=== PATIENT | female | born 1960 | race Caucasian/White ===

== ENCOUNTER 2020-04-13 07:55 | Inpatient (IN) ==
--- NOTE | 2020-03-21 16:23 | PAT Medication Instructions ---
Medication Instructions Date of Service March 21, 2020 Home Medications aspirin [Aspir-81] 81 mg PO PM atorvastatin 80 mg PO HS bupropion HCl [Wellbutrin SR] 200 mg PO BID clonazepam 1 mg PO BID escitalopram oxalate 10 mg PO QAM loratadine 10 mg PO QAM losartan 50 mg PO QAM metformin 1,000 mg PO BID omeprazole 40 mg PO PM vitamin R64-klryd acid 1 tab PO QAM DO NOT take the morning of surgery loratadine 10 mg PO QAM losartan 50 mg PO QAM metformin 1,000 mg PO BID vitamin H61-knszk acid 1 tab PO QAM Take morning of surgery With a small sip of water, OTHERWISE NOTHING TO EAT OR DRINK AFTER MIDNIGHT: bupropion HCl [Wellbutrin SR] 200 mg PO BID clonazepam 1 mg PO BID escitalopram oxalate 10 mg PO QAM Take evening before surgery aspirin [Aspir-81] 81 mg PO PM atorvastatin 80 mg PO HS bupropion HCl [Wellbutrin SR] 200 mg PO BID clonazepam 1 mg PO BID metformin 1,000 mg PO BID omeprazole 40 mg PO PM Other Notes If you have any questions please call us at [phone] or [phone] or [phone] or [phone]
--- NOTE | 2020-03-22 13:00 | Anesthesiology Consultation ---
Date of Service March 22, 2020 Assessment & Plan (1) Encounter for pre-operative examination: Chart Review Chart Review: Acceptable Risk for Surgery (pending preop Covid testing ) and Patient seen in Pre Admission Testing - Check BSG AM DOS Per PAT appt 03/22/20, no recent travel. Resides in [facility]. Educated patient to follow up with surgeon's office regarding Covid testing. Educated on importance of self quarantining, social distancing and wearing mask in public both for the patient and household contacts. Teaching & Discussion Pre-Anesthesia Teaching/Discussion Notes: Instructed NPO after midnight before surgery,except medications with 15 cc of water. Medication instructions provid ed according to the PAT guidelines. History Surgery Operation Date: 04/13/20 10:55 Proposed Procedures p L4-L5 Decompression Fusion, Spinal Cord Monitoring - Zion Calle, Height/Weight Height: 5 ft 2 in Weight: 67.7 kg Allergies Allergy/AdvReac Type Severity Reaction Status Date / Time cortisone Allergy Unknown INFLAMED Unverified 03/16/20 09:49 MUSCLES NEAR SITE OF INJECTION meloxicam Allergy Unknown Unknown Verified 03/16/20 09:49 Medications Home Medications Medication Instructions Recorded Confirmed Last Taken aspirin [Aspir-81] 81 mg PO PM 03/16/20 03/16/20 Unknown atorvastatin 80 mg PO HS 03/16/20 03/16/20 Unknown bupropion HCl [Wellbutrin SR] 200 mg PO BID 03/16/20 03/16/20 Unknown clonazepam 1 mg PO BID 03/16/20 03/16/20 Unknown escitalopram oxalate 10 mg PO QAM 03/16/20 03/16/20 Unknown loratadine 10 mg PO QAM 03/16/20 03/16/20 Unknown losartan 50 mg PO QAM 03/16/20 03/16/20 Unknown metformin 1,000 mg PO BID 03/16/20 03/16/20 Unknown omeprazole 40 mg PO PM 03/16/20 03/16/20 Unknown vitamin A43-mrfgr acid 1 tab PO QAM 03/16/20 03/16/20 Unknown Past Medical History Medical History (Updated 03/22/20 @ 13:23 by Mony Andrews PA-C) Anxiety Depression Diabetes mellitus, type 2 Well controlled and stable GERD (gastroesophageal reflux disease) Well controlled and stable with meds Hearing deficit Wears hearing aids Hiatal hernia Hyperlipidemia Hypertension Kidney disease resolved since off meloxicam Nausea and vomiting after administration of anesthetic agent Osteoarthritis Sleep apnea Does not have CPAP at this time Exercise / Class Metabolic Activity II 4-5 Yardwork/Stairs/Walk up hill (one flight of stairs- no chest pain or SOB ) Past Family History Family History (Updated 03/16/20 @ 10:06 by Celena Perez RN) Sister Diabetes Brother Diabetes Past Surgical History Surgical History (Updated 03/16/20 @ 10:05 by Celena Perez RN) History of arthroscopy right History of cardiac cath over 5 yrs ago> [place]> due to c.p> no stents History of carpal tunnel release right History of cholecystectomy History of colonoscopy History of dilatation and curettage History of esophagogastroduodenoscopy (EGD) History of hysterectomy History of repair of rotator cuff bilat History of tooth extraction all teeth Hx of Achilles tendon repair left x2 Hx of decompression of ulnar nerve right Past Anesthesia History No Hx of Anesthesia Complications and No Family Hx of Anesthesia Complications History of PONV History of PONV (scop patch ordered for DOS ) and Hx of Motion Sickness Social History Smoking Status: Current every day smoker tobacco type: cigarettes Smoking cigarettes per day: 1/2 ppd Do You Dip or Chew Tobacco: No Hx Alcohol Use: No Hx Substance Use: No substance use type: does not use Review of Systems Patient denies chest pain, shortness of breath, dyspnea on exertion, cough, wheezing, palpitations. No hx of seizures, stroke, [place]. No hx of blood clots or blood transfusions Physical Exam Vital Signs VITALS BP 167/74 P 68 TEMP 98.5 SP02 99% RESP 16 Constitutional no acute distress ENMT Mouth: no TMJ clicking Thyromental Distance: > or= 3.5 Finger Breadths (3.5) Mallampati Class: III Missing all teeth Neck + limited neck extension (significant ) Respiratory normal respiratory effort; no respiratory distress Auscultation: lungs clear to auscultation bilaterally; no wheezes Cardiovascular Rate/Rhythm: regular rate and regular rhythm Heart Sounds: no murmur Vessels: no carotid bruit Musculoskeletal Spine: + pain with cervical ROM Neurologic moves all extremities Psychiatric Orientation: alert Testing Laboratory Results 03/22/20 13:20 03/22/20 13:35 PT 10.9 Seconds (9.0-12.0) 03/22/20 13:20 INR 1.0 (0.9-1.1) 03/22/20 13:20 APTT 27.5 Seconds (21.0-31.0) 03/22/20 13:20 Hemoglobin A1c 6.1 % (4.5-5.6) H 03/22/20 13:20 Urine Color Yellow 03/22/20 13:20 Urine Appearance Clear (Clear) 03/22/20 13:20 Urine pH 5.5 (4.5-7.5) 03/22/20 13:20 Ur Specific [place] 1.011 (1.000-1.030) 03/22/20 13:20 Urine Protein Negative (Negative) 03/22/20 13:20 Urine Glucose (UA) Negative (Negative) 03/22/20 13:20 Urine Ketones Negative (Negative) 03/22/20 13:20 Urine Nitrite Negative (Negative) 03/22/20 13:20 Ur Leukocyte Esterase Negative (Negative) 03/22/20 13:20 Blood Type O Positive 03/22/20 13:20 Antibody Screen NEGATIVE 03/22/20 13:20 Electrocardiogram Date: 03/22/20 Findings: + NSR @ (67) Minimal voltage criteria for LVH, may be normal variant. Nonspecific T wave abnormality. Chest X-Ray Date: 03/22/20 Findings: + NAD Cardiac Catheterization Date: 07/13/14 Findings: + normal Coronary arteries angiographically normal.
--- NOTE | 2020-03-22 14:05 | XRay Report ---
XR chest Pre-admission PA/Lat CLINICAL HISTORY: PAT preoperative evaluation COMPARISON STUDY: No previous studies for comparison. FINDINGS: The bones soft tissues and hemidiaphragms are normal. The cardiomediastinal silhouette is n ormal. The lungs are clear. The pulmonary vasculature is normal. IMPRESSION: Negative chest. ACT 112: Negative or not required by law. The above report was generated using voice recognition software. It may contain grammatical, syntax or spelling errors. Electronically signed by: Fito Orozco M.D. 03/22/2020 2:04 PM
[2020-03-22 14:13] LABS: Basophils # (auto) 0.01 K/uL (0-0.2); Basophils % (auto) 0.2 %; Eosinophils # (auto) 0.08 K/uL (0-0.5); Eosinophils % (auto) 1.4 %; Hematocrit (blood only) 36.1 % (37-47); Hemoglobin 11.9 g/dL (12.0-16.0); Immature Granulocytes # (auto) 0.02 K/uL (0.00-0.02); Immature Granulocytes % (auto) 0.4 %; Lymphocytes # (auto) 1.92 K/uL (1.2-3.4); Lymphocytes % (auto) 34.3 %; Mean Corpuscular Hemoglobin 29.4 pg (25-34); Mean Corpuscular Volume 89.1 fL (80-100); Mean Platelet Volume 10.1 fL (7.4-10.4); Monocytes # (auto) 0.45 K/uL (0.11-0.59); Neutrophils # (auto) 3.12 K/uL (1.4-6.5); Neutrophils % (auto) 55.7 %; Platelet Count 274 K/uL (130-400); RDW Coefficient of Variation 14.6 % (11.5-14.5); RDW Standard Deviation 47.8 fL (36.4-46.3); Red Blood Count 4.05 M/uL (4.2-5.4)
[2020-03-22 14:21] LABS: Estimated Average Glucose 128 mg/dl; Hemoglobin A1C 6.1 % (4.5-5.6)
[2020-03-22 14:24] LABS: BUN Creatinine Ratio 11.7 (10-20); Calcium 9.2 mg/dl (8.5-10.1); Est GFR (African American) 64.6; Est GFR (Non-African American) 55.8; Potassium 4.3 mmol/L (3.5-5.1)
[2020-03-22 14:26] LABS: Partial Thromboplastin Time 27.5 Seconds (21.0-31.0); Prothrombin Time 10.9 Seconds (9.0-12.0)
[2020-03-22 14:29] LABS: Appearance Urine Clear (Clear); Bilirubin Urine Negative (Negative); Blood Urine Negative (Negative); Color Urine Yellow; Glucose Urine UA Negative (Negative); Ketones Urine Negative (Negative); Leukocyte Esterase Urine Negative (Negative); Nitrite Urine Negative (Negative); Protein Urine Negative (Negative); Specific Gravity Urine 1.011 (1.000-1.030); Urobilinogen Urine Negative (Negative); pH Urine 5.5 (4.5-7.5)
--- NOTE | 2020-03-23 05:04 | Electrocardiogram Report ---
Test Reason : Blood Pressure : / mmHG Vent. Rate : 067 BPM Atrial Rate : 067 BPM P-R Int : 158 ms QRS Dur : 088 ms QT Int : 404 ms P-R-T Axes : 072 -25 -08 degrees QTc Int : 426 ms Normal sinus rhythm Minimal voltage criteria for LVH, may be normal variant Nonspecific T wave abnormality Abnormal ECG When compared with ECG of 13-DEC-2015 15:25, Nonspecific T wave abnormality, worse in Anterolateral leads Confirmed by Soctt Zhou ([id number]) on 03/23/2020 5:04:00 AM Referred By: Zion Calle Confirmed By:Scott Zhou
[~2020-04-13 07:55] MED LIST: ACETAMINOPHEN 500 MG TAB PO SCH; CEFAZOLIN 1000MG 1,000 MG/7.5 ML SYR IV SCH; CeleBREX 200 MG CAP PO SCH; GABAPENTIN 600 MG DOSE PO SCH; LACTATED RINGER'S 1,000 ML IV SCH; SCOPOLAMINE 1.5 MG TDSY TD SCH; [UNRECOGNIZED DRUG - REMARK] SCH
[2020-04-13] MEDS ORDERED: SCOPOLAMINE 1.5 MG TDSY TD ONE (09:05)
--- NOTE | 2020-04-13 09:21 | History & Physical Bridge Note ---
Date of Service April 13, 2020 History & Physical Bridge Note I have examined the patient, reviewed the History & Physical and in the interval since the performance of the History & Physical I have noted the following changes of clinical significance: no changes noted
--- NOTE | 2020-04-13 09:22 | History & Physical Report ---
Date of Service April 13, 2020 Assessment & Plan (1) Neurogenic claudication due to lumbar spinal stenosis: L4-L5 decompression fusion Present on Admission?: Yes History of Present Illness Chief Complaint: Back and bilateral leg pain Primary Care Provider: SUSAN Garibay This is a 59-year-old female who presents with chronic persistent back and leg pain. After failing extensive course of nonoperative care is here for surgical intervention. Allergies Allergy/AdvReac Type Severity Reaction Status Date / Time cortisone Allergy Severe INFLAMED Verified 04/13/20 08:31 MUSCLES NEAR SITE OF INJECTION meloxicam AdvReac Intermediate Unknown Verified 04/13/20 08:31 NSAIDS (Non-Steroidal AdvReac Intermediate Verified 04/13/20 08:32 Anti-Inflamma Home Medications Home Medications Medication Instructions Recorded Confirmed Type aspirin [Aspir-81] 81 mg PO PM 03/16/20 04/13/20 History atorvastatin 80 mg PO HS 03/16/20 04/13/20 History bupropion HCl [Wellbutrin SR] 200 mg PO BID 03/16/20 04/13/20 History clonazepam [Klonopin] 1 mg PO BID 03/16/20 04/13/20 History escitalopram oxalate [Lexapro] 15 mg PO QAM 03/16/20 04/13/20 History losartan 50 mg PO QAM 03/16/20 04/13/20 History metformin 1,000 mg PO BID 03/16/20 04/13/20 History omeprazole 40 mg PO PM 03/16/20 04/13/20 History vitamin R40-zixwm acid 1 tab PO QAM 03/16/20 04/13/20 History Past Med/Surg History Medical History (Updated 04/13/20 @ 09:22 by Zion Calle DO) Anxiety Depression Diabetes mellitus, type 2 Well controlled and stable GERD (gastroesophageal reflux disease) Well controlled and stable with meds Hearing deficit Wears hearing aids Hiatal hernia Hyperlipidemia Hypertension Kidney disease resolved since off meloxicam Osteoarthritis Sleep apnea Does not have CPAP at this time Surgical History (Updated 04/10/20 @ 12:53 by Catalina Plata RN) History of arthroscopy right History of cardiac cath over 5 yrs ago> [place]> due to c.p> no stents History of carpal tunnel release right History of cholecystectomy History of colonoscopy History of dilatation and curettage History of esophagogastroduodenoscopy (EGD) History of hysterectomy History of repair of rotator cuff bilat History of tooth extraction all teeth Hx of Achilles tendon repair left x2 Hx of decompression of ulnar nerve right Nausea and vomiting after administration of anesthetic agent Family History (Updated 03/16/20 @ 10:06 by Celena Perez RN) Sister Diabetes Brother Diabetes Social History Smoking Status: Current every day smoker Cigarettes Per Day: 1/2 ppd; Second Hand Exposure: Yes; Do You Dip or Chew Tobacco: No; Tobacco Cessation Education Requested by Patient: No Hx Alcohol Use: No Hx Substance Use: No Preferred Language: Welsh Communication Ability: Effective 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 Heart regular rate and rhythm. Lungs clear to auscultation. Results & Data Vital Signs (Past 12 Hours) Vital Signs Temp Pulse Resp BP Pulse Ox 04/13/20 08:43 36.6 C 78 18 125/72 97
[2020-04-13] MEDS ORDERED: ePHEDrine sulfate 50 MG/ML AMP IV PRN (09:29)
[2020-04-13] MEDS ORDERED: ATROPINE SULFATE 0.1 MG/ML 10ML SYR IV PRN (09:29)
[2020-04-13] MEDS ORDERED: ONDANSETRON INJ 2 MG/ML 2 ML VIAL IV PRN ×2 (09:29→14:26)
[2020-04-13] MEDS ORDERED: HYDROmorphone INJ 1 MG/ML SYRINGE IV PRN (09:29)
[2020-04-13] MEDS ORDERED: ROCURONIUM BROMIDE 10 MG/ML 5 ML VIAL IV ONE ×3 (09:30→12:05)
[2020-04-13] MEDS ORDERED: PROPOFOL IV EMULSION 10 MG/ML 20 ML VIAL IV ONE (09:30)
[2020-04-13] MEDS ORDERED: LIDOCAINE HCL 2% 2 ML VIAL/AMP(20MG/ML) INFIL ONE (09:30)
[2020-04-13] MEDS ORDERED: NEOSTIGMINE METHYLSULFATE 1 MG/ML 10ML VIAL ONE (09:30)
[2020-04-13] MEDS ORDERED: GLYCOPYRROLATE 0.2 MG/ML VIAL ONE (09:30)
[2020-04-13] MEDS ORDERED: BUPIVACAINE 0.5 % 5 MG/1 ML MPF 30ML VIAL ONE (09:31)
[2020-04-13] MEDS ORDERED: fentaNYL citrate 100 MCG/2 ML VIAL ONE (09:31)
[2020-04-13] MEDS ORDERED: BACITRACIN INJ 50,000 UNIT VIAL ONE (09:31)
[2020-04-13] MEDS ORDERED: EPINEPHrine INJ 1 MG/ML AMP ONE (09:31)
[2020-04-13] MEDS ORDERED: MIDAZOLAM HCL 1 MG/ML 2ML VIAL ONE (09:31)
[2020-04-13] MEDS ORDERED: FLOSEAL HEMOSTATIC MATRIX 10ML TOP ONE (10:35)
--- NOTE | 2020-04-13 11:55 | Procedure Note ---
Procedure Note Date of Service April 13, 2020 Prior to going to the operating room, the patient reported that she had lost her left contact. The patient rubbed her eye multiple times and stated that it did not feel like the contact was still in her eye. On visual inspection, I was unable to find any contact in her left eye. After induction, the anesthesia team looked under the patients upper left eyelid and was able to identify the contact rolled up and wedged between the patient's eyeball and eyelid. Attempts to flush the eye with normal saline were not successful in freeing up the contact. Therefore, I gently removed the contact using a sterile cotton swab. The cotton swab was only used to touch the contact and not the surface of the eye. The contact was gently moved to the corner of the patients eye and then the edge of the contact was grabbed with a forcep and removed. The patient's eye was then flushed with saline and gently taped shut. The contact was disposed off per patient's request. Deya Jaimes MD, PhD Anesthesiologist Coding
--- NOTE | 2020-04-13 11:59 | Operative Report ---
Post Operative Report Pre & Post Diagnosis Operation Date: 04/13/20 09:35 Pre-Op Diagnosis: Spinal Stenosis, Lumbar Region L4-L5 Spondylolisthesis L4-L5 Post-Op Diagnosis: Same I identified the patient and participated in the time-out.: Yes Procedure Operation Date: 04/13/20 09:35 Actual Procedures #1 lumbar decompression with bilateral medial facetectomies and foraminotomies L3-4 and L4-5 per #2 posterior spinal fusion L4-5 #3 placed posterior instrumentation L4-5 per #4 placement infuse collagen sponge, master graft in the posterior lateral gutters. #5 locally harvested morselized autograft in the posterior lateral gutters. Surgeon Zion Calle, Environment Artist Janes Pacheco Estimated Blood Loss 100 Findings Consistent with Post-Op Diagnosis Specimens None Indications This is a 5-year-old female that presents with above-mentioned diagnosis after failing course of nonoperative care is here for the above-mentioned procedure. Description of Procedure Patient was met with identified informed consent obtained. Patient was then taken to the operative suite underwent an patient placed in a prone position the Arnaldo table on top of the Giorgio frame. All bony prominences were well-padded eyes inspected to ensure no external pressure placed upon them. This point the lumbar spine was prepped and draped in normal sterile fashion. Sharp dissection with the assistance of Bovie cautery was performed down to and exposing the lamina and transverse processes of L3-4 and L5. From a caudal cephalad fashion complete laminectomy of L4 partial laminectomy of L3 was performed including bilateral medial facetectomies and foraminotomies addressing severe spinal sten osis. Pedicle screws were then placed in L4 and L5 bilaterally with assistance of fluoroscopy and appropriate size francis locked in position. Transverse processes of L4 and L5 were then burred to subcortical bleeding bone. Infuse collagen sponge master graft local autograft was then placed in the posterior gutters. 15 round GINA drain inserted. The incision was then closed with 1 Vicryl in the fascia 2-0 Vicryl subcutaneously and 4 Monocryl for final skin closure. Steri-Strip sterile dressings placed. Patient waken taken to PACU stable condition. Please note spinal cord monitoring was utilized that the procedure no changes noted. Janes Pacheco was present at the entire procedure involved the patient positioning complex portions of the surgery and final skin closure. I attest to the content of the Intraoperative Record and any orders documented therein. Any exceptions are noted below.
--- NOTE | 2020-04-13 12:26 | Fluoroscopy Report ---
FL lumbar spine 2-3V CLINICAL HISTORY: L4-5 DECOMPRESSION/FUSION/INTERBODY COMPARISON STUDY: FLUOROSCOPY TIME: 22 seconds NUMBER OF FLUOROSCOPIC IMAGES: 2 FINDINGS: Image intensifier support for an L4-L5 decompression and fusion IMPRESSION: Image intensifier support for an L4-L5 decompression and fusion. ACT 112: Negative or not required by law. The above report was generated using voice recognition software. It may contain grammatical, syntax or spelling errors. Electronically signed by: Fito Orozco M.D. 04/13/2020 12:25 PM
[2020-04-13] MEDS: fentaNYL citrate 100 MCG/2 ML VIAL IV PRN ×2 (12:30→12:35)
--- NOTE | 2020-04-13 14:13 | Anesthesiology Progress Note ---
Date of Service April 13, 2020 Anesthesia Post Procedure Vital Signs Vital Signs: Temp Pulse Pulse Resp BP Pulse Ox 04/13/20 13:45 71 13 114/60 94 04/13/20 13:30 66 12 97/60 L 92 04/13/20 13:15 64 19 100/58 L 92 04/13/20 13:05 36.7 C 66 14 103/57 L 92 04/13/20 12:55 67 12 103/57 L 93 04/13/20 12:45 65 12 105/55 L 100 04/13/20 12:35 66 16 121/65 100 04/13/20 12:25 59 L 12 103/67 100 04/13/20 12:18 36.2 C L 60 18 111/59 L 100 04/13/20 08:43 36.6 C 78 18 125/72 97 Pain Intensity Lower Back: Pain Intensity: 4 Transfer of Care Handoff Completed per policy Notes Mental Status: alert / awake / arousable and participated in evaluation Patient Amnestic to Procedure: Yes Nausea / Vomiting: adequately controlled Pain: adequately controlled Airway Patency, RR, SpO2: stable & adequate BP & HR: stable & adequate Hydration State: stable & adequate Anesthetic Complications: no major complications apparent and Pt Satisfied with anesthetic care Notes: In PACU, patient denying any eye pain, but is reporting some blurred vision in left eye. On inspection, patient's eye appears dry with a slight film. Patient's eye was gently flushed with normal saline. The patient reports that her blurry vision fully resolved. Eye looks clear without any film, irritation or redness.
[2020-04-13] MEDS ORDERED: METOCLOPRAMIDE HCL INJ 5 MG/ML 2 ML VIAL IV PRN (14:26)
[2020-04-13] MEDS ORDERED: ACETAMINOPHEN 1,000 MG/100 ML VIAL IV PRN (14:26)
[2020-04-13] MEDS ORDERED: LORazepam 0.5 MG/1 ML VIAL IV PRN (14:26)
[2020-04-13] MEDS ORDERED: HYDROmorphone INJ 0.5 MG/0.5 ML SYR IV PRN (14:26)
[2020-04-13] MEDS ORDERED: MAGNESIUM HYDROXIDE SUSP 30 ML UDC PO PRN (14:26)
[2020-04-13] MEDS ORDERED: LORazepam 0.5 MG TAB PO PRN (14:26)
[2020-04-13] MEDS ORDERED: ONDANSETRON 4 MG OD TAB PO PRN (14:26)
[2020-04-13] MEDS ORDERED: PROMETHAZINE HCL 12.5 MG in SODIUM CHLORIDE 0.9% 50 ML IV PRN (14:26)
[2020-04-13] MEDS ORDERED: bisacodyL 10 MG SUPP PR PRN (14:26)
[2020-04-13] MEDS ORDERED: FAMOTIDINE 20 MG TAB PO PRN (14:26)
[2020-04-13] MEDS ORDERED: SOD PHOSPHATE/SOD BIPHOSPHATE ENEMA 132 ML BTL PR PRN (14:26)
[2020-04-13] MEDS ORDERED: ALUMINUM/MAGNESIUM SUSP 30 ML UDC PO PRN (14:26)
[2020-04-13] MEDS ORDERED: DO NOT ADMINISTER PNEUMOCOCCAL VACCINE PRN (14:26)
[2020-04-13] MEDS ORDERED: DO NOT ADMINISTER FLU VACCINE PRN (14:26)
[2020-04-13] MEDS ORDERED: NALOXONE HCL 0.4 MG/1 ML VIAL/CARP IV PRN (14:26)
[2020-04-13] MEDS ORDERED: PHARMACY GLYCEMIC MGMT CONSULT SCH (14:39)
--- NOTE | 2020-04-13 14:48 | Pharmacy Report ---
Pharmacy Glycemic Short Note 2 - Date of Service April 13, 2020 - Glycemic Short BSG Results (Last 24 hours): 04/13/20 04/13/20 08:16 12:18 POC Glucose 173 H 111 H OUTPATIENT ANTIDIABETIC REGIMEN: * Metformin 1gm PO BID * A1c = 6.1% 03/22/20 ASSESSMENT: * Type 2 diabetic, well controlled using metformin monotherapy prior to admission. * Admitted today for lumbar spinal decompression/fusion * No dexamethasone dispensed from quique-op [facility] * BSGs < 180 thus far * Will hold metformin post-op until renal fxn assessed and tolerating diet. Will initiate Novolog SQ prandial and correctional insulin based upon weight and "moderate" stress level. * Basal insulin will only be provided this evening if BSG > 180 PLAN FOR INPATIENT GLYCEMIC CONTROL: * Hold outpatient oral diabetes medications * Basal insulin * Lantus 10 units x 1 IF HS BSG 180 OR GREATER, otherwise no basal insulin * Bolus insulin * NovoLog per scale ACHS or Q6hrs while NPO * Goal Range: Low 110 mg/dL - High 140 mg/dL * Correction Factor: 30 mg/dL/unit * Nutritional / Prandial insulin per carb ratio of 1 unit per 10 grams CHO consumed PLAN FOR DISCHARGE: * may resume outpt metformin therapy on discharge if no contraindications present
[2020-04-13] MEDS: OXYCODONE HCL IR 5 MG TAB (IMMEDIATE RELEASE) PO PRN ×2 (15:11→20:41)
[2020-04-13] MEDS ORDERED: SODIUM CHLORIDE 0.9% 1000ML 1,000 ML IV SCH (15:15)
[2020-04-13] MEDS ORDERED: NICOTINE 21 MG/24 HR TDSY TD PRN (15:18)
--- NOTE | 2020-04-13 15:18 | Hospitalist Consultation ---
Date of Consultation April 13, 2020 Assessment & Plan (1) Neurogenic claudication due to lumbar spinal stenosis: - POD#0 L4-L5 decompression and fusion by Dr. Calle - activity and wound care orders as per ortho - pain control with bowel regimen - PT/OT - monitor H/H for acute blood loss anemia and transfuse blood products PRN - EBL 100 cc (2) Diabetes mellitus, type 2: -Hgb A1c 6.1 03/2020 -Hold metformin and utilize Lantus and NovoLog per protocol while hospitalized -Glycemic pharmacy consulted by spine Ortho (3) Hypertension: -BP controlled, continue losartan (4) Depression: (5) Anxiety: -Nursing reports that behavioral health liaison is consulted per protocol -Continue home medications (6) DVT prophylaxis: -Teds/SCDs as per spine Ortho Thank you for this consultation. We will follow the patient with you during their hospital stay. You can reach a member of the [facility] Hospitalist Team 06/04 via pager @ [phone]. Supervising Physician Co-Signing Physician Notes Pt seen and examined by me, care coordinated with SUSAN morris, please refer to her note above for further details. 59-year-old female with PMH DM type II (A1c 6.1%), HLD, HTN, OA, depression, back and leg pain, due to lumbar stenosis, now status post L4-L5 decompression and fusion today by Dr. Calle. Postoperatively, the patient is doing generally well. She denies numbness and tingling to lower extremities. No chest pain or shortness of breath. Reports some mild dizziness when rolling in bed, no lightheadedness or syncopal event. Denies abdominal pain or nausea. She has not voided since surgery. Patient is lying in bed, in no acute distress. She is alert and oriented and answers questions appropriately. Lung sounds clear to auscultation, no wheezing, rhonchi or crackles. Heart sounds regular. Abdomen soft, nontender, nondistended, positive bowel sounds. She is moving all 4 extremities spontaneously and without difficulty. Skin is warm, dry, well perfused. Of note, patient reports that her daughter in the hospital several days ago. Psychiatry liaison was contacted and discussed with the patient. Patient also has a therapist as outpatient. Close follow-up on her depression recommended. Monitor vital signs, and monitor for acute blood loss anemia. Diabetes seems to be well controlled, with A1c 6%. Kings Myles MD History of Present Illness Reason for Consultation: Postop medical management Requesting Physician: Dr. Calle Attending Physician: Dr. Myles History of Present Illness 59-year-old female with PMH DM type II, HLD, HTN, depression, and other problems listed below who is status post L4-L5 decompression and fusion today by Dr. Calle. Postoperatively, the patient is doing generally well, however she does report her current pain is 10/10. RN is in the process of obtaining pain medication pharmacy. She denies numbness and tingling to lower extremities. No chest pain or shortness of breath. Reports some mild dizziness when rolling in bed, no lightheadedness or syncopal event. Denies abdominal pain or nausea. She has not voided since surgery. Allergies Allergy/AdvReac Type Severity Reaction Status Date / Time cortisone Allergy Severe INFLAMED Verified 04/13/20 08:31 MUSCLES NEAR SITE OF INJECTION meloxicam AdvReac Intermediate Unknown Verified 04/13/20 08:31 NSAIDS (Non-Steroidal AdvReac Intermediate Verified 04/13/20 08:32 Anti-Inflamma Home Medications Home Medications Medication Instructions Recorded Confirmed Type aspirin [Aspir-81] 81 mg PO PM 03/16/20 04/13/20 History atorvastatin 80 mg PO HS 03/16/20 04/13/20 History bupropion HCl [Wellbutrin SR] 200 mg PO BID 03/16/20 04/13/20 History clonazepam [Klonopin] 1 mg PO BID 03/16/20 04/13/20 History escitalopram oxalate [Lexapro] 15 mg PO QAM 03/16/20 04/13/20 History losartan 50 mg PO QAM 03/16/20 04/13/20 History metformin 1,000 mg PO BID 03/16/20 04/13/20 History omeprazole 40 mg PO PM 03/16/20 04/13/20 History vitamin [id number] acid 1 tab PO QAM 03/16/20 04/13/20 History estradiol 1 mg PO DAILY 04/13/20 04/13/20 History Patient History Medical History Anxiety Depression Diabetes mellitus, type 2 Well controlled and stable GERD (gastroesophageal reflux disease) Well controlled and stable with meds Hearing deficit Wears hearing aids Hiatal hernia Hyperlipidemia Hypertension Kidney disease resolved since off meloxicam Osteoarthritis Sleep apnea Does not have CPAP at this time Surgical History History of arthroscopy right History of cardiac cath over 5 yrs ago> dansean> due to c.p> no stents History of carpal tunnel release right History of cholecystectomy History of colonoscopy History of dilatation and curettage History of esophagogastroduodenoscopy (EGD) History of hysterectomy History of repair of rotator cuff bilat History of tooth extraction all teeth Hx of Achilles tendon repair left x2 Hx of decompression of ulnar nerve right Nausea and vomiting after administration of anesthetic agent Family History Sister Diabetes Brother Diabetes Social History Smoking Status: Current every day smoker Cigarettes Per Day: 1 PPD; Second Hand Exposure: Yes; Do You Dip or Chew Tobacco: No; Tobacco Cessation Education Requested by Patient: No Hx Alcohol Use: No Hx Substance Use: No Preferred Language: Gabonese Communication Ability: Effective Beam Racker Required: No Beliefs That Will Affect Care: None Current Living Situation: Family Other Information That Helps Us Care for You: No Feels Safe at Home: Yes Safety Concerns: Feels Safe At This Time Review of Systems Review of Systems: ROS per HPI, all other systems reviewed and negative Physical Exam Constitutional: WD/WN, vitals as above Eyes: PERRL, conjunctivae normal, anicteric sclerae ENMT: Ears: no external ear abnormality Nose: no external nose abnormality Mouth: + edentulous Respiratory: normal respiratory effort, lungs clear to auscultation Cardiovascular: Rate/Rhythm: regular rate and regular rhythm Vessels: normal peripheral pulses Extremities: no edema Gastrointestinal (Abdomen): normal bowel sounds, soft, nontender, no hepatosplenomegaly Musculoskeletal: no cyanosis or clubbing, extremities motor strength 5/5 S/p back surgery, drain in place draining bloody drainage, pedal pushes and pull strong bilaterally Skin: no rashes, warm and dry Neurologic: PERRL, EOMI, accommodation nl, no face palsy, no dysarthria Psychiatric: A+Ox3, euthymic affect Results & Data Results & Data ([facility]) Vital Signs (Past 12 Hours) Vital Signs Temp Pulse Pulse Pulse Resp BP Pulse Ox 04/13/20 14:49 36.7 C 58 L 18 111/68 95 04/13/20 14:26 36.7 C 75 20 115/70 95 04/13/20 13:45 71 13 114/60 94 04/13/20 13:30 66 12 97/60 L 92 04/13/20 13:15 64 19 100/58 L 92 04/13/20 13:05 36.7 C 66 14 103/57 L 92 04/13/20 12:55 67 12 103/57 L 93 04/13/20 12:45 65 12 105/55 L 100 04/13/20 12:35 66 16 121/65 100 04/13/20 12:25 59 L 12 103/67 100 04/13/20 12:18 36.2 C L 60 18 111/59 L 100 04/13/20 08:43 36.6 C 78 18 125/72 97
[2020-04-13] MEDS: CHECK SCOPOLAMINE PATCH PLACEMENT SCH ×3 (15:48→17:11)
[2020-04-13] MEDS: HYDROmorphone INJ 1 MG/ML SYRINGE IV PRN (15:56)
[2020-04-13] MEDS: INSULIN ASPART 100 UNITS/ML 3 ML PEN SC SCH ×2 (18:10→20:46)
[2020-04-13] MEDS: CEFAZOLIN 1000MG 1,000 MG/7.5 ML SYR IV SCH (18:13)
[2020-04-13] MEDS: clonazePAM 1 MG TAB PO SCH (20:44)
[2020-04-13] MEDS ORDERED: LANTUS PER UNIT CHARGE SQ ONE (21:00)
[2020-04-13] MEDS: DOCUSATE SODIUM/SENNA 50/8.6MG TAB PO SCH (21:58)
[2020-04-13] MEDS: BuPROPion SR 100 MG TABCR PO SCH (21:59)
[2020-04-13] MEDS: ATORVASTATIN 40 MG TAB PO SCH (21:59)
[2020-04-13] MEDS: ASPIRIN 81 MG ECTAB PO SCH (21:59)
[2020-04-13] MEDS: PANTOprazole 40 MG TAB PO SCH (21:59)
[2020-04-13] MEDS: TRAMADOL HCL 50 MG TABLET PO PRN (23:09)
[2020-04-14] MEDS: CEFAZOLIN 1000MG 1,000 MG/7.5 ML SYR IV SCH (01:42)
[2020-04-14] MEDS: OXYCODONE HCL IR 5 MG TAB (IMMEDIATE RELEASE) PO PRN ×5 (02:59→20:33)
[2020-04-14] MEDS: POLYETHYLENE (MIRALAX) 17 GM PACK PO SCH ×3 (05:43→17:05)
[2020-04-14] MEDS: TRAMADOL HCL 50 MG TABLET PO PRN (05:44)
[2020-04-14 06:04] LABS: Eosinophils # (auto) 0.07 K/uL (0-0.5); Eosinophils % (auto) 0.9 %; Hematocrit (blood only) 32.6 % (37-47); Hemoglobin 10.8 g/dL (12.0-16.0); Immature Granulocytes # (auto) 0.02 K/uL (0.00-0.02); Immature Granulocytes % (auto) 0.2 %; Lymphocytes # (auto) 1.54 K/uL (1.2-3.4); Mean Corpuscular Hemoglobin 28.9 pg (25-34); Mean Corpuscular Hgb Conc 33.1 g/dL (32-36); Mean Corpuscular Volume 87.2 fL (80-100); Mean Platelet Volume 9.6 fL (7.4-10.4); Monocytes # (auto) 0.78 K/uL (0.11-0.59); Monocytes % (auto) 9.6 %; Neutrophils % (auto) 70.3 %; Platelet Count 230 K/uL (130-400); RDW Coefficient of Variation 13.9 % (11.5-14.5); RDW Standard Deviation 44.4 fL (36.4-46.3); Red Blood Count 3.74 M/uL (4.2-5.4); White Blood Count 8.11 K/uL (4.8-10.8)
[2020-04-14 06:37] LABS: BUN Creatinine Ratio 9.8 (10-20); Calcium 8.6 mg/dl (8.5-10.1); Creatinine Clr Calc Pharmacy 43.6 ml/min; Est GFR (African American) 58.1; Est GFR (Non-African American) 50.1; Potassium 4.1 mmol/L (3.5-5.1)
[2020-04-14] MEDS: clonazePAM 1 MG TAB PO SCH ×2 (07:59→20:40)
[2020-04-14] MEDS: ESCITALOPRAM OXALATE 10 MG TAB PO SCH (07:59)
[2020-04-14] MEDS: VITAMIN B COMPLEX TAB PO SCH (08:00)
[2020-04-14] MEDS: BuPROPion SR 100 MG TABCR PO SCH ×2 (08:00→20:37)
--- NOTE | 2020-04-14 08:06 | Orthopedic Progress Note ---
Date of Service April 14, 2020 Assessment & Plan (1) Neurogenic claudication due to lumbar spinal stenosis: Patient is doing well postop day 1. We will continue with GI DVT prophylaxis and mobilization with physical therapy. We will make sure her pain is well controlled and encourage hydration. Anticipate she will be here until Thursday. Admission and Anticipated Discharge Date Admission Date: April 13, 2020 Subjective Patient is seen bedside in room 307 postoperative day 1 status post lumbar decompression fusion at L4-5. She is having some soreness in the back itself and some neck pain as well. She is complaining of some intermittent symptoms in the legs as well. Otherwise her pain is controlled. She is tolerating p.o. without difficulties. She denies any other numbness, tingling, or paresthesias. Physical Exam Physical Exam: On exam she is alert and oriented. Her dressing is clean dry and intact. GINA drains in place and is holding suction with 80 cc out on the last check. Her strength and sensation grossly intact gait was not observed. Results & Data ([facility]) Vital Signs (Past 12 Hours) Vital Signs Temp Pulse Resp BP Pulse Ox 04/14/20 07:10 36.7 C 94 H 16 94/64 L 95 04/14/20 06:59 37.4 C 93 H 16 117/71 94 04/14/20 02:55 37.0 C 79 16 118/77 97 04/13/20 22:50 36.4 C L 75 18 108/68 95
[2020-04-14] MEDS: INSULIN ASPART 100 UNITS/ML 3 ML PEN SC SCH ×4 (08:37→20:38)
[2020-04-14] MEDS ORDERED: LOSARTAN POTASSIUM 50 MG TAB PO SCH (09:00)
[2020-04-14] MEDS: METFORMIN HCL 500 MG TAB PO SCH (17:06)
[2020-04-14] MEDS: HYDROmorphone INJ 1 MG/ML SYRINGE IV PRN (17:10)
--- NOTE | 2020-04-14 20:22 | Hospitalist Progress Note ---
Date of Service April 14, 2020 Assessment & Plan (1) Neurogenic claudication due to lumbar spinal stenosis: - POD#2 L4-L5 decompression and fusion by Dr. Calle Management of postoperative fever and anemia per below (2) Postoperative abdominal pain with fever: T-max 38.7 No leukocytosis Chest x-ray no pneumonia Urinalysis no UTI Blood cultures: Pending, follow-up Afebrile since last night Continue incentive spirometry We will not recommend starting antibiotics at this point unless fever recurs Continue to monitor (3) Anemia: Possible acute blood loss anemia Monitor hemoglobin Transfuse if hemoglobin below 7 or symptomatic (4) Diabetes mellitus, type 2: -Hgb A1c 6.1 03/2020 -Hold metformin and utilize Lantus and NovoLog per protocol while hospitalized -Glycemic pharmacy consulted by spine Ortho (5) Hypertension: Blood pressure still on the lower side, hold losartan (6) Depression: (7) Anxiety: -Nursing reports that behavioral health liaison is consulted per protocol -Continue home medications (8) DVT prophylaxis: -Teds/SCDs as per spine Ortho Thank you for this consultation. We will follow the patient with you during their hospital stay. You can reach a member of the [facility] Hospitalist Team 06/04 via pager @ [phone]. Admission and Anticipated Discharge Date Admission Date: April 13, 2020 Subjective Follow-up for status post back surgery, hypertension, low-grade fever Patient had fever episode overnight, T-max 38.7 Seen resting in bed, comfortable, watching TV States she feels better today compared to yesterday, back pain improving Denies headache, dizziness, chest pain, shortness of breath, cough, sputum, sputum production, abdominal pain, nausea vomiting, diarrhea, problems with urination Tolerated PT well today, denies dizziness or weakness No other symptoms Review of Systems Review of Systems: All systems reviewed & are unremarkable except as noted in HPI & below Physical Exam Physical Exam: General- oriented x 3, not in distress, speaks in sentences with no effort or accessory muscle use Eyes- anicteric Neck- no JVD Lungs- clear breath sounds bilaterally, no crackles, no wheezing bilaterally Heart- normal rate, regular rhythm; no murmurs Abdomen- normal bowel sounds, nondistended, soft, nontender Extremities- no pretibial edema, no calf tenderness Neuro- alert, oriented x 3; no gross focal neurologic deficits Skin- warm & dry Results & Data Results & Data ([facility]) Vital Signs (Past 12 Hours) Vital Signs Temp Pulse Resp BP Pulse Ox 04/14/20 15:35 36.7 C 94 H 16 123/70 95 04/14/20 11:19 36.9 C 82 16 112/66 97 Laboratory Results Laboratory Results - last 24 hr 04/14/20 04/15/20 04/15/20 20:37 06:36 09:52 WBC 9.22 RBC 3.46 L Hgb 10.1 L Hct 30.0 L MCV 86.7 MCH 29.2 MCHC 33.7 RDW Std Deviation 44.1 RDW Coeff of [place] 13.9 Plt Count 171 MPV 9.7 Immature Gran % (Auto) 0.2 Neut % (Auto) 76.1 Lymph % (Auto) 13.2 [place] % (Auto) 10.0 Eos % (Auto) 0.4 Baso % (Auto) 0.1 Neut # (Auto) 7.01 H Lymph # (Auto) 1.22 [place] # (Auto) 0.92 H Eos # (Auto) 0.04 Baso # (Auto) 0.01 Immature Gran # (Auto) 0.02 Sodium Potassium Chloride Carbon Dioxide Anion Gap BUN Creatinine Est Cr Clr Drug Dosing Est GFR ( Amer) Est GFR (Non-Af Amer) BUN/Creatinine Ratio Glucose POC Glucose 152 H 155 H Calcium Urine Color Urine Appearance Urine pH Ur Specific [place] Urine Protein Urine Glucose (UA) Urine Ketones Urine Blood Urine Nitrite Urine Bilirubin Urine Urobilinogen Ur Leukocyte Esterase 04/15/20 04/15/20 04/15/20 09:52 12:06 16:12 WBC RBC Hgb Hct MCV MCH MCHC RDW Std Deviation RDW Coeff of [place] Plt Count MPV Immature Gran % (Auto) Neut % (Auto) Lymph % (Auto) [place] % (Auto) Eos % (Auto) Baso % (Auto) Neut # (Auto) Lymph # (Auto) [place] # (Auto) Eos # (Auto) Baso # (Auto) Immature Gran # (Auto) Sodium 134 L Potassium 4.0 Chloride 101 Carbon Dioxide 27 Anion Gap 6.0 BUN 16 Creatinine 1.05 Est Cr Clr Drug Dosing 49.0 Est GFR ( Amer) 66.9 Est GFR (Non-Af Amer) 57.7 BUN/Creatinine Ratio 15.0 Glucose 181 H POC Glucose 129 H Calcium 8.9 Urine Color Yellow Urine Appearance Clear Urine pH 5.5 Ur Specific [place] 1.011 Urine Protein Negative Urine Glucose (UA) Trace H Urine Ketones Negative Urine Blood Negative Urine Nitrite Negative Urine Bilirubin Negative Urine Urobilinogen Negative Ur Leukocyte Esterase Negative 04/15/20 17:12 WBC RBC Hgb Hct MCV MCH MCHC RDW Std Deviation RDW Coeff of [place] Plt Count MPV Immature Gran % (Auto) Neut % (Auto) Lymph % (Auto) [place] % (Auto) Eos % (Auto) Baso % (Auto) Neut # (Auto) Lymph # (Auto) [place] # (Auto) Eos # (Auto) Baso # (Auto) Immature Gran # (Auto) Sodium Potassium Chloride Carbon Dioxide Anion Gap BUN Creatinine Est Cr Clr Drug Dosing Est GFR ( Amer) Est GFR (Non-Af Amer) BUN/Creatinine Ratio Glucose POC Glucose 145 H Calcium Urine Color Urine Appearance Urine pH Ur Specific [place] Urine Protein Urine Glucose (UA) Urine Ketones Urine Blood Urine Nitrite Urine Bilirubin Urine Urobilinogen Ur Leukocyte Esterase
[2020-04-14] MEDS: PANTOprazole 40 MG TAB PO SCH (20:36)
[2020-04-14] MEDS: ASPIRIN 81 MG ECTAB PO SCH (20:36)
[2020-04-14] MEDS: ATORVASTATIN 40 MG TAB PO SCH (20:37)
[2020-04-14] MEDS: DOCUSATE SODIUM/SENNA 50/8.6MG TAB PO SCH (20:37)
[2020-04-15] MEDS: ACETAMINOPHEN 500 MG TAB PO PRN (00:08)
[2020-04-15] MEDS: POLYETHYLENE (MIRALAX) 17 GM PACK PO SCH ×4 (00:08→17:27)
[2020-04-15] MEDS: TRAMADOL HCL 50 MG TABLET PO PRN (00:11)
[2020-04-15] MEDS: OXYCODONE HCL IR 5 MG TAB (IMMEDIATE RELEASE) PO PRN ×4 (06:39→20:31)
[2020-04-15] MEDS: VITAMIN B COMPLEX TAB PO SCH (07:13)
[2020-04-15] MEDS: clonazePAM 1 MG TAB PO SCH ×2 (07:13→21:44)
[2020-04-15] MEDS: BuPROPion SR 100 MG TABCR PO SCH ×2 (07:13→21:44)
[2020-04-15] MEDS: ESCITALOPRAM OXALATE 10 MG TAB PO SCH (07:14)
[2020-04-15] MEDS: METFORMIN HCL 500 MG TAB PO SCH ×2 (07:14→17:35)
[2020-04-15] MEDS: INSULIN ASPART 100 UNITS/ML 3 ML PEN SC SCH ×4 (07:15→21:47)
--- NOTE | 2020-04-15 07:27 | Orthopedic Progress Note ---
Date of Service April 15, 2020 Assessment & Plan (1) Neurogenic claudication due to lumbar spinal stenosis: Patient is doing well postoperative day #2. I encouraged her to ambulate today. We will continue with pain control GI and DVT prophylaxis. If all goes well she will likely be discharged home tomorrow. Admission and Anticipated Discharge Date Admission Date: April 13, 2020 Subjective Patient was seen bedside postoperative day 2 in room 307. She is resting comfortably at this point. She states that she has some soreness in her back but nothing going down the legs. She was up and walks yesterday and did pretty well. She has had no increase in pain. She has no radicular complaints at this point. She denies any other numbness, tingling, or paresthesias. Physical Exam Physical Exam: On exam she is alert and oriented. Her lower extremity motor exam reveals no focal atrophy strength and sensation are both intact her dressing is clean dry and intact. Her GINA is in place and had 20 cc of drainage on the last recording. Her calves are supple nontender her abdomen soft and nontender. Results & Data ([facility]) Vital Signs (Past 12 Hours) Vital Signs Temp Pulse Resp BP Pulse Ox 04/15/20 06:36 37.0 C 82 16 104/66 96 04/15/20 01:11 38.2 C H 04/14/20 23:10 38.7 C H 103 H 16 114/68 91
[2020-04-15 10:14] LABS: Basophils # (auto) 0.01 K/uL (0-0.2); Basophils % (auto) 0.1 %; Eosinophils # (auto) 0.04 K/uL (0-0.5); Eosinophils % (auto) 0.4 %; Hemoglobin 10.1 g/dL (12.0-16.0); Immature Granulocytes # (auto) 0.02 K/uL (0.00-0.02); Immature Granulocytes % (auto) 0.2 %; Lymphocytes # (auto) 1.22 K/uL (1.2-3.4); Lymphocytes % (auto) 13.2 %; Mean Corpuscular Hemoglobin 29.2 pg (25-34); Mean Corpuscular Hgb Conc 33.7 g/dL (32-36); Mean Corpuscular Volume 86.7 fL (80-100); Mean Platelet Volume 9.7 fL (7.4-10.4); Monocytes # (auto) 0.92 K/uL (0.11-0.59); Neutrophils # (auto) 7.01 K/uL (1.4-6.5); Neutrophils % (auto) 76.1 %; Platelet Count 171 K/uL (130-400); RDW Coefficient of Variation 13.9 % (11.5-14.5); RDW Standard Deviation 44.1 fL (36.4-46.3); Red Blood Count 3.46 M/uL (4.2-5.4); White Blood Count 9.22 K/uL (4.8-10.8)
[2020-04-15 10:40] LABS: Calcium 8.9 mg/dl (8.5-10.1); Est GFR (African American) 66.9; Est GFR (Non-African American) 57.7
--- NOTE | 2020-04-15 10:43 | XRay Report ---
XR chest 1V portable CLINICAL HISTORY: Suspected pneumonia COMPARISON STUDY: 03/22/2020 FINDINGS: The cardiac and mediastinal contours are normal. There is no evidence of focal pulmonary co nsolidation. There is no evidence of failure. No pleural effusions are visualized.[ IMPRESSION: No active disease in the chest. ACT 112: Negative or not required by law. Electronically signed by: Agapito Diaz M.D. 04/15/2020 10:42 AM
--- NOTE | 2020-04-15 12:20 | Pharmacy Report ---
Pharmacy Glycemic Short Note 2 - Date of Service April 15, 2020 - Glycemic Short BSG Results (Last 24 hours): 04/14/20 04/14/20 04/15/20 17:09 20:37 06:36 Glucose POC Glucose 113 H 152 H 155 H 04/15/20 04/15/20 09:52 12:06 Glucose 181 H POC Glucose 129 H OUTPATIENT ANTIDIABETIC REGIMEN: * Metformin 1gm PO BID * A1c = 6.1% 03/22/20 ASSESSMENT: * Type 2 diabetic, well controlled using metformin monotherapy prior to admission. * POD #2 s/p lumbar spinal decompression/fusion * Pt received 11 units of bolus insulin yesterday with BSGs ranging from 113 - 152 mg/dL * Metformin has been resumed in light of stable renal function and pt tolerating oral intake * Fasting BSG acceptable without basal insulin PLAN FOR INPATIENT GLYCEMIC CONTROL: * Metformin 1000 mg PO BID with meals * Basal insulin * none * Bolus insulin * NovoLog per scale ACHS or Q6hrs while NPO * Goal Range: Low 110 mg/dL - High 140 mg/dL * Correction Factor: 25 mg/dL/unit * remove carb coverage PLAN FOR DISCHARGE: * may resume outpt metformin therapy on discharge
[2020-04-15 16:23] LABS: Appearance Urine Clear (Clear); Bilirubin Urine Negative (Negative); Blood Urine Negative (Negative); Color Urine Yellow; Glucose Urine UA Trace (Negative); Ketones Urine Negative (Negative); Leukocyte Esterase Urine Negative (Negative); Nitrite Urine Negative (Negative); Protein Urine Negative (Negative); Specific Gravity Urine 1.011 (1.000-1.030); Urobilinogen Urine Negative (Negative); pH Urine 5.5 (4.5-7.5)
--- NOTE | 2020-04-15 18:17 | Hospitalist Progress Note ---
Date of Service Delayed entry Date of service April 14, 2020 April 15, 2020 Assessment & Plan (1) Neurogenic claudication due to lumbar spinal stenosis: - POD# 1 L4-L5 decompression and fusion by Dr. Calle Blood pressure marginal, hold losartan Monitor hemoglobin DVT prophylaxis per Ortho service (2) Diabetes mellitus, type 2: -Hgb A1c 6.1 03/2020 -Hold metformin and utilize Lantus and NovoLog per protocol while hospitalized -Glycemic pharmacy consulted by spine Ortho (3) Hypertension: Blood pressure on the lower side, hold losartan (4) Depression: (5) Anxiety: -Nursing reports that behavioral health liaison is consulted per protocol -Continue home medications (6) DVT prophylaxis: -Teds/SCDs as per spine Ortho Thank you for this consultation. We will follow the patient with you during their hospital stay. You [facility] via pager @ [phone]. Admission and Anticipated Discharge Date Admission Date: April 13, 2020 Subjective Follow-up for status post back surgery Seen resting in bed, comfortable, not in distress Awake, alert but appears tired States she is having back pain today No headache, nausea vomiting, chest pain, shortness of breath, dizziness, abdominal pain No other symptoms Review of Systems Review of Systems: All systems reviewed & are unremarkable except as noted in HPI & below Physical Exam Physical Exam: General- oriented x 3, not in distress, speaks in sentences with no effort or accessory muscle use Head- atraumatic Eyes- PERRL, EOMI, anicteric ENT- oropharynx clear Neck- supple, no JVD, no adenopathy, no thyromegaly; carotids +2/2, no bruits appreciated Lungs- clear to auscultation bilaterally, no rales/wheezes Heart- normal rate, regular rhythm; no murmur, no gallop, no rub appreciated Abdomen- normal bowel sounds, nondistended, soft, nontender, no masses or hepatosplenomegaly Extremities- no pretibial edema, no calf tenderness; peripheral pulses intact Back-patient declined exam secondary to pain with movement Neuro- alert, oriented x 3; CN 2-12 grossly intact; motor 5/5 bilaterally;sensation 100% on all extremities; no other gross focal neurologic deficits Skin- warm & dry Results & Data Results & Data ([facility]) Vital Signs (Past 12 Hours) Vital Signs Temp Pulse Resp BP Pulse Ox 04/15/20 15:00 37.4 C 88 16 111/69 94 04/15/20 06:36 37.0 C 82 16 104/66 96 Laboratory Results Noted and reviewed
[2020-04-15] MEDS: DOCUSATE SODIUM/SENNA 50/8.6MG TAB PO SCH (21:43)
[2020-04-15] MEDS: ATORVASTATIN 40 MG TAB PO SCH (21:44)
[2020-04-15] MEDS: ASPIRIN 81 MG ECTAB PO SCH (21:44)
[2020-04-15] MEDS: PANTOprazole 40 MG TAB PO SCH (21:45)
[2020-04-16] MEDS: ACETAMINOPHEN 500 MG TAB PO PRN (00:45)
[2020-04-16] MEDS: POLYETHYLENE (MIRALAX) 17 GM PACK PO SCH ×4 (00:45→17:26)
[2020-04-16 05:44] LABS: Eosinophils # (auto) 0.13 K/uL (0-0.5); Eosinophils % (auto) 1.5 %; Hematocrit (blood only) 29.3 % (37-47); Hemoglobin 9.9 g/dL (12.0-16.0); Immature Granulocytes # (auto) 0.02 K/uL (0.00-0.02); Immature Granulocytes % (auto) 0.2 %; Lymphocytes % (auto) 23.1 %; Mean Corpuscular Hemoglobin 29.3 pg (25-34); Mean Corpuscular Hgb Conc 33.8 g/dL (32-36); Mean Corpuscular Volume 86.7 fL (80-100); Mean Platelet Volume 9.6 fL (7.4-10.4); Monocytes # (auto) 1.08 K/uL (0.11-0.59); Monocytes % (auto) 12.5 %; Neutrophils # (auto) 5.44 K/uL (1.4-6.5); Neutrophils % (auto) 62.7 %; Platelet Count 197 K/uL (130-400); RDW Standard Deviation 44.7 fL (36.4-46.3); Red Blood Count 3.38 M/uL (4.2-5.4); White Blood Count 8.67 K/uL (4.8-10.8)
[2020-04-16] MEDS: OXYCODONE HCL IR 5 MG TAB (IMMEDIATE RELEASE) PO PRN ×2 (06:03→16:36)
[2020-04-16 06:10] LABS: BUN Creatinine Ratio 12.6 (10-20); Calcium 9.1 mg/dl (8.5-10.1); Creatinine Clr Calc Pharmacy 51.9 ml/min; Est GFR (African American) 71.8; Est GFR (Non-African American) 61.9; Potassium 4.6 mmol/L (3.5-5.1)
[2020-04-16] MEDS: METFORMIN HCL 500 MG TAB PO SCH ×2 (07:31→17:25)
[2020-04-16] MEDS: ESCITALOPRAM OXALATE 10 MG TAB PO SCH (07:32)
[2020-04-16] MEDS: BuPROPion SR 100 MG TABCR PO SCH ×2 (07:33→21:25)
[2020-04-16] MEDS: VITAMIN B COMPLEX TAB PO SCH (07:33)
[2020-04-16] MEDS: clonazePAM 1 MG TAB PO SCH ×2 (07:37→21:24)
[2020-04-16] MEDS: INSULIN ASPART 100 UNITS/ML 3 ML PEN SC SCH ×4 (07:39→21:25)
--- NOTE | 2020-04-16 11:19 | Orthopedic Progress Note ---
Date of Service April 16, 2020 Assessment & Plan (1) Neurogenic claudication due to lumbar spinal stenosis: At this time we will advance her bowel regiment discontinue her drain today and continue with therapy as tolerated. Hopefully discharge home tomorrow. Present on Admission?: Yes Admission and Anticipated Discharge Date Admission Date: April 13, 2020 Subjective Patient's back pain is controlled leg pain markedly improved. No bowel movement as of yet. Positive flatus. Physical Exam Physical Exam: Patient is good strength testing was comfortable. Results & Data ([facility]) Vital Signs (Past 12 Hours) Vital Signs Temp Pulse Resp BP Pulse Ox 04/16/20 06:37 36.9 C 77 16 118/71 94
[2020-04-16] MEDS ORDERED: DEXAMETHASONE SOD PHOSPHATE 8 MG in SYRINGE 0 ML IV ONE (11:30)
[2020-04-16] MEDS ORDERED: bisacodyL 10 MG SUPP PR STA (14:08)
--- NOTE | 2020-04-16 14:11 | Hospitalist Progress Note ---
Date of Service April 16, 2020 Assessment & Plan (1) Neurogenic claudication due to lumbar spinal stenosis: (1) Neurogenic claudication due to lumbar spinal stenosis: - POD#3 L4-L5 decompression and fusion by Dr. Calle Management of postoperative fever and anemia per below (2) Postoperative abdominal pain with fever: T-max 38.1 No leukocytosis Chest x-ray no pneumonia Urinalysis no UTI Blood cultures: Pending, follow-up Had low-grade fever this morning of 38.1 No clear focus of infection at this time Continue incentive spirometry Constipation contributing? Add Dulcolax suppository, continue MiraLAX, continue Senokot-S hold off on antibiotics for now Continue to monitor (3) Anemia: Possible acute blood loss anemia Monitor hemoglobin Transfuse if hemoglobin below 7 or symptomatic Check anemia panel (4) Diabetes mellitus, type 2: -Hgb A1c 6.1 03/2020 -Hold metformin and utilize Lantus and NovoLog per protocol while hospitalized -Glycemic pharmacy consulted by spine Ortho (5) Hypertension: Blood pressure still on the lower side, hold losartan (6) Depression: (7) Anxiety: -Nursing reports that behavioral health liaison is consulted per protocol - Patient states she is grieving her daughter's demise recently but patient d enies being tearful, not motivated, feeling down most of the time -Continue home medications (8) DVT prophylaxis: -Teds/SCDs as per spine Ortho Thank you for this consultation. We will follow the patient with you during their hospital stay. You can reach a member of the [facility] Hospitalist Team 06/04 via pager @ [phone]. (2) Diabetes mellitus, type 2: -Hgb A1c 6.1 03/2020 -Hold metformin and utilize Lantus and NovoLog per protocol while hospitalized -Glycemic pharmacy consulted by spine Ortho (3) Hypertension: Blood pressure on the lower side, hold losartan (4) Depression: (5) Anxiety: -Nursing reports that behavioral health liaison is consulted per protocol -Continue home medications (6) DVT prophylaxis: -Teds/SCDs as per spine Ortho Thank you for this consultation. We will follow the patient with you during their hospital stay. You can reach a member of the [facility] Hospitalist Team 06/04 via pager @ [phone]. Admission and Anticipated Discharge Date Admission Date: April 13, 2020 Subjective Follow-up for status post back surgery, fever Seen resting in bed, comfortable, not in distress Somewhat weak but awake alert oriented x3 Had fever of 38.1 this morning Reports intermittent chills Denies headache, dizziness, sore throat, nasal drainage, sore throat, chest pain, shortness of breath, cough, abdominal pain, problems with urination Positive constipation since , no abdominal pain, no nausea vomiting Denies other symptoms Review of Systems Review of Systems: All systems reviewed & are unremarkable except as noted in HPI & below Physical Exam Physical Exam: General- oriented x 3, not in distress, speaks in sentences with no effort or accessory muscle use Eyes- anicteric Neck- no JVD Lungs- clear breath sounds, no crackles, no wheezing bilaterally Heart- normal rate, regular rhythm; no murmurs Abdomen- normal bowel sounds, nondistended, soft, nontender Back-dressing in place, drain in place with sanguinous output No discharge Extremities- no pretibial edema, no calf tenderness Neuro- alert, oriented x 3; no gross focal neurologic deficits Skin- warm & dry Results & Data Results & Data ([facility]) Vital Signs (Past 12 Hours) Vital Signs Temp Pulse Resp BP Pulse Ox 04/16/20 06:37 36.9 C 77 16 118/71 94 Laboratory Results Laboratory Results - last 24 hr 04/15/20 04/15/20 04/15/20 16:12 17:12 20:50 WBC RBC Hgb Hct MCV MCH MCHC RDW Std Deviation RDW Coeff of [place] Plt Count MPV Immature Gran % (Auto) Neut % (Auto) Lymph % (Auto) Clare % (Auto) Eos % (Auto) Baso % (Auto) Neut # (Auto) Lymph # (Auto) Clare # (Auto) Eos # (Auto) Baso # (Auto) Immature Gran # (Auto) Sodium Potassium Chloride Carbon Dioxide Anion Gap BUN Creatinine Est Cr Clr Drug Dosing Est GFR ( Amer) Est GFR (Non-Af Amer) BUN/Creatinine Ratio Glucose POC Glucose 145 H 160 H Calcium Urine Color Yellow Urine Appearance Clear Urine pH 5.5 Ur Specific [place] 1.011 Urine Protein Negative Urine Glucose (UA) Trace H Urine Ketones Negative Urine Blood Negative Urine Nitrite Negative Urine Bilirubin Negative Urine Urobilinogen Negative Ur Leukocyte Esterase Negative 04/16/20 04/16/20 04/16/20 05:29 05:29 06:40 WBC 8.67 RBC 3.38 L Hgb 9.9 L Hct 29.3 L MCV 86.7 MCH 29.3 MCHC 33.8 RDW Std Deviation 44.7 RDW Coeff of [place] 14.0 Plt Count 197 MPV 9.6 Immature Gran % (Auto) 0.2 Neut % (Auto) 62.7 Lymph % (Auto) 23.1 Clare % (Auto) 12.5 Eos % (Auto) 1.5 Baso % (Auto) 0.0 Neut # (Auto) 5.44 Lymph # (Auto) 2.00 Clare # (Auto) 1.08 H Eos # (Auto) 0.13 Baso # (Auto) 0.00 Immature Gran # (Auto) 0.02 Sodium 139 Potassium 4.6 Chloride 105 Carbon Dioxide 30 Anion Gap 4.0 BUN 12 Creatinine 0.99 Est Cr Clr Drug Dosing 51.9 Est GFR ( Amer) 71.8 Est GFR (Non-Af Amer) 61.9 BUN/Creatinine Ratio 12.6 Glucose 118 H POC Glucose 126 H Calcium 9.1 Urine Color Urine Appearance Urine pH Ur Specific [place] Urine Protein Urine Glucose (UA) Urine Ketones Urine Blood Urine Nitrite Urine Bilirubin Urine Urobilinogen Ur Leukocyte Esterase 04/16/20 12:12 WBC RBC Hgb Hct MCV MCH MCHC RDW Std Deviation RDW Coeff of [place] Plt Count MPV Immature Gran % (Auto) Neut % (Auto) Lymph % (Auto) Clare % (Auto) Eos % (Auto) Baso % (Auto) Neut # (Auto) Lymph # (Auto) Clare # (Auto) Eos # (Auto) Baso # (Auto) Immature Gran # (Auto) Sodium Potassium Chloride Carbon Dioxide Anion Gap BUN Creatinine Est Cr Clr Drug Dosing Est GFR ( Amer) Est GFR (Non-Af Amer) BUN/Creatinine Ratio Glucose POC Glucose 144 H Calcium Urine Color Urine Appearance Urine pH Ur Specific [place] Urine Protein Urine Glucose (UA) Urine Ketones Urine Blood Urine Nitrite Urine Bilirubin Urine Urobilinogen Ur Leukocyte Esterase
[2020-04-16] MEDS ORDERED: Nursing to Pharmacy Communication SCH (20:00)
[2020-04-16] MEDS: PANTOprazole 40 MG TAB PO SCH (21:24)
[2020-04-16] MEDS: DOCUSATE SODIUM/SENNA 50/8.6MG TAB PO SCH (21:24)
[2020-04-16] MEDS: ATORVASTATIN 40 MG TAB PO SCH (21:24)
[2020-04-16] MEDS: ASPIRIN 81 MG ECTAB PO SCH (21:24)
[2020-04-17] MEDS: ACETAMINOPHEN 500 MG TAB PO PRN (01:07)
[2020-04-17 06:37] LABS: Basophils # (auto) 0.01 K/uL (0-0.2); Basophils % (auto) 0.1 %; Eosinophils # (auto) 0.06 K/uL (0-0.5); Eosinophils % (auto) 0.7 %; Hematocrit (blood only) 29.5 % (37-47); Hemoglobin 9.9 g/dL (12.0-16.0); Immature Granulocytes # (auto) 0.01 K/uL (0.00-0.02); Immature Granulocytes % (auto) 0.1 %; Lymphocytes # (auto) 1.71 K/uL (1.2-3.4); Mean Corpuscular Hemoglobin 28.9 pg (25-34); Mean Corpuscular Hgb Conc 33.6 g/dL (32-36); Mean Corpuscular Volume 86.3 fL (80-100); Mean Platelet Volume 9.1 fL (7.4-10.4); Monocytes % (auto) 12.3 %; Neutrophils # (auto) 5.37 K/uL (1.4-6.5); Neutrophils % (auto) 65.8 %; Platelet Count 229 K/uL (130-400); RDW Coefficient of Variation 13.9 % (11.5-14.5); RDW Standard Deviation 43.9 fL (36.4-46.3); Red Blood Count 3.42 M/uL (4.2-5.4); White Blood Count 8.16 K/uL (4.8-10.8)
[2020-04-17 06:50] VITALS: BP 110/66; PULSE 69; TEMP 99; O2SAT 97
[2020-04-17 07:13] LABS: BUN Creatinine Ratio 12.2 (10-20); Calcium 9.4 mg/dl (8.5-10.1); Creatinine Clr Calc Pharmacy 50.9 ml/min; Est GFR (African American) 70.1; Est GFR (Non-African American) 60.5; Potassium 4.4 mmol/L (3.5-5.1)
[2020-04-17] MEDS: METFORMIN HCL 500 MG TAB PO SCH (08:06)
[2020-04-17] MEDS: ESCITALOPRAM OXALATE 10 MG TAB PO SCH (08:07)
[2020-04-17] MEDS: VITAMIN B COMPLEX TAB PO SCH (08:07)
[2020-04-17] MEDS: BuPROPion SR 100 MG TABCR PO SCH (08:08)
[2020-04-17] MEDS: INSULIN ASPART 100 UNITS/ML 3 ML PEN SC SCH (08:12)
[2020-04-17] MEDS: clonazePAM 1 MG TAB PO SCH (08:12)
--- NOTE | 2020-04-17 08:26 | Discharge Summary ---
Date of Service April 17, 2020 Admission HPI Per Admitting Provider This is a 59-year-old female who presents with chronic persistent back and leg pain. After failing extensive course of nonoperative care is here for surgical intervention. Principal Diagnosis Lumbar spinal stenosis with neurogenic claudication Discharge Data Allergies Allergy/AdvReac Type Severity Reaction Status Date / Time cortisone Allergy Severe INFLAMED Verified 04/13/20 08:31 MUSCLES NEAR SITE OF INJECTION meloxicam AdvReac Intermediate Unknown Verified 04/13/20 08:31 NSAIDS (Non-Steroidal AdvReac Intermediate Verified 04/13/20 08:32 Anti-Inflamma Consultations 04/13/20 14:26 Consult Case Management - Discharge Planning Routine Consult Hospitalist Routine 04/13/20 14:34 Consult Behavioral Health Liaison Routine Procedures Performed Operation Date: 04/13/20 09:35 Actual Procedures p L4-L5 Decompression Fusion, Spinal Cord Monitoring - Zion Calle DO Ordered Studies 04/13/20 09:35 FL fluoroscopy <1hr Routine FL lumbar spine 2-3V Routine Hospital Course (1) Neurogenic claudication due to lumbar spinal stenosis: Patient underwent lumbar decompression fusion tolerated this well was taken to orthopedic for postoperative. Postop day 1 she was up and ambulating progressed to postop day #2 and 3 bowels finally working on postop day 3 subsequently discharged home on postop day #4. She is excellent strength testing ambulating well. Discharge orders instructions from the chart for further review. Total Time Total Time Spent Total Time Spent (In Minutes): 20 minutes Discharge Plan Discharge Items Patient Disposition: Home - Self-Care Reason For Visit: Spinal Stenosis, Lumbar Region Discharge Diagnosis: Lumbar spinal stenosis with neurogenic claudication Activity: As commented below Non-emergency contact: Primary Care Provider Call non-emergency contact if: you have any medication questions Follow-up/Referrals: Jade Ortiz CRNP [Primary Care Provider] - Diet: Regular Addtl Attending Provider Instructions: ACTIVITY RECOMMENDATIONS: SELF CARE INSTRUCTIONS AFTER THORACIC/LUMBAR FUSIONS 1. You may walk to your tolerance. It is good exercise for your legs and back. Expect some back and intermittent leg aches and pains. 2. You may perform "counter-top" level activities (make a sandwich, shannan with a project, etc.). 3. No bending or lifting of more than 10 pounds or back twisting of any nature (roll like a log when turning in bed). 4. You may ride in a car for 20-30 minutes at a time. No driving until after your first visit with your doctor. 5. Frequent changes of position and restricting sitting to 30 minutes at a time will help limit the amount of back spasms and stiffness you may experience. 6. You may discontinue the use of ambulatory aids (cane, crutches, etc.) once your strength and confidence allow. 7. You may business integration manager the shower and let water strike your incision when you arrive home at least once daily. Do not take a tub bath, sit in a hot tub or go into a swimming pool until after your first recheck in the office. SPECIAL CARE INSTRUCTIONS: VERY IMPORTANT TO READ AND REVIEW A. Your surgical incision has been closed with a cosmetic suture under the skin that will dissolve in about 6 weeks. In 14 days, you can use a pair of clean scissors and cut the suture that is left outside of the skin at the ends of your incision. 1. The small skin tapes can be removed 7 days after surgery if they have not fallen off by that point. 2. You may keep the wound open to air as much as possible to promote healing after post-op day number 5 unless told otherwise by your doctor. 3. If you think the wound looks like it is becoming infected (redness or worsening drainage) and/or you are experiencing fever, chill or worsening back pain and muscle spasms, contact the office so that we may evaluate you as soon as possible. B. Complications are uncommon, but please contact us if you have any signs or symptoms of: 1. wound infection (fever higher than 102.5 degrees F, redness, separation of wound, drainage, or increasing pain from the incision) 2. blood clots in legs (pain, swelling, redness and warmth in legs) 3. urinary tract infection (fever higher than 102.5 degrees F, burning upon urination or increased frequency of urination) 4. nerve problems (inability to walk on your toes or heels, numbness, loss of bowel or bladder control) 5. any other symptoms that concern you C. Please call the office at if you have any concerns or questions about your operation or recovery. D. No smoking! Smoking drastically decreases the chance of a solid fusion. E. Do not take any anti-inflammatory medications (Indocin, Advil, Motrin, Aspirin, Naprosyn, etc.) as these may inhibit the chance of a solid fusion. Tylenol is okay to take for pain. MANAGING PAIN AFTER SPINAL SURGERY 1. Narcotic medication is intended for short-term use and will be provided for surgical pain. Surgical pain usually lasts for a period of 4-6 weeks. Narcotic medication includes Percocet, Vicodin, Darvocet, Tylenol #3 or Lortab. 2. Longer-term pain is more appropriately treated with non-narcotic medication such as Tylenol ES. 3. Muscle spasm is not appropriately treated with narcotics. Muscle relaxers such as Soma, Flexeril or Skelaxin can be used along with Tylenol ES. 4. Remember that we all live with some "aches and pains". This is not unusual or uncommon after an injury or as we get older. a. Back pain is expected and may include muscle spasms for 4 to 6 weeks after surgery. The pain should gradually improve. If the pain worsens for no apparent reason, please contact the office. b. Intermittent leg pain may also be experienced and should not be concerned about unless it worsens for no apparent reason. If so, please contact the office. 5. We will provide appropriate medication within the normal guidelines of their prescribed use. We will also be very cautious and aware of potential abuse and extended duration of patients' medication needs. a. Pain medications are for your comfort and to assist with sleep and rest so that the tissue can heal. They are not provided in order to return to normal activity and should not be used through the day. To do so or worsening pain at night can result from ongoing tissue damage and development of tolerance to the prescribed medicine. 6. Please allow 2-3 days to process refills. Prescriptions will not be mailed but must be picked up at the office. FOLLOW UP VISIT: Keep your scheduled follow-up appointment. Any questions, please call the office at . Pending Studies at Discharge: No Stand-Alone Forms: [employer], Smoking Cessation Medications and DC Order Prescriptions: New tramadol 50 mg tablet 50 mg PO Q6H PRN (Reason: pain, moderate) Qty: 20 RF: 0 oxycodone 5 mg tablet 5 mg PO Q6H PRN (Reason: pain, severe) Qty: 20 RF: 0 Continued losartan 50 mg Tablet 50 mg PO QAM RF: 0 atorvastatin 80 mg Tablet 80 mg PO HS RF: 0 clonazepam [Klonopin] 1 mg Tablet 1 mg PO BID RF: 0 omeprazole 40 mg Capsule,Delayed Release(Dr/Ec) 40 mg PO PM RF: 0 aspirin [Aspir-81] 81 mg Tablet,Delayed Release (Dr/Ec) 81 mg PO PM RF: 0 metformin 1,000 mg Tablet 1,000 mg PO BID RF: 0 bupropion HCl [Wellbutrin SR] 200 mg Tablet Sustained-Release 12 Hr 200 mg PO BID RF: 0 escitalopram oxalate [Lexapro] 10 mg Tablet 15 mg PO QAM RF: 0 vitamin I17-dblii acid 0.5-1 mg Tablet 1 tab PO QAM RF: 0 estradiol 1 mg tablet 1 mg PO DAILY RF: 0 Discharge Orders: Discharge Order (Routine); Ordered 04/17/20 Ordered By: Zion Cooper/Other Patient Handouts: Managing Type 2 Diabetes Admission Data Admit Date/Time: 04/13/20 14:17 Attending Provider: Zion Calle Admit Provider: Zion Calle Primary Care Provider: Jade Ortiz Other Providers: Usama Alonso ; Nacho Kinsey
[2020-04-17 08:49] LABS: Folate (Folic Acid) 8.75 ng/ml (>5.38)
== END 2020-04-17 10:30 | disposition home or self-care (01) | DRG 460 ==
LOC: ASU 07:55 → 3E 14:17

== ENCOUNTER 2025-01-27 09:37 | Inpatient (IN) ==
--- NOTE | 2024-12-28 16:05 | PAT Medication Instructions ---
Medication Instructions Date of Service December 28, 2024 Home Medications atorvastatin 80 mg tablet 80 mg PO HS bupropion HCl 200 mg tablet,12 hr sustained-release (Wellbutrin SR) 200 mg PO BID clonazepam 1 mg tablet (Klonopin) 1 mg PO BID omeprazole 40 mg capsule,delayed release 40 mg PO PM ondansetron 4 mg disintegrating tablet 4 mg PO Q6H PRN Nausea albuterol sulfate 90 mcg/actuation aerosol inhaler 1 inh inhalation QID PRN sob aspirin 81 mg tablet,delayed release 81 mg PO HS cholecalciferol (vitamin D3) 125 mcg (5,000 unit) tablet (Vitamin D3) 125 mcg PO UD lumbar surgery empagliflozin 25 mg tablet (Jardiance) 25 mg PO QAM escitalopram oxalate 20 mg tablet 20 mg PO QAM fluticasone furoate 100 mcg/actuation blister powder for inhalation (Arnuity Ellipta) 1 inh inhalation DAILY PRN flare up polyethylene glycol 3350 17 gram/dose oral powder (Miralax) 17 g PO DAILY tirzepatide 5 mg/0.5 mL subcutaneous pen injector (Mounjaro) 5 mg subcut WK Continue as directed fluticasone furoate 100 mcg/actuation blister powder for inhalation (Arnuity Ellipta) 1 inh inhalation DAILY PRN flare up (if needed) STOP taking at least 7 days before surgery tirzepatide 5 mg/0.5 mL subcutaneous pen injector (Mounjaro) 5 mg subcut WK STOP taking 3 days before surgery empagliflozin 25 mg tablet (Jardiance) 25 mg PO QAM DO NOT take the morning of surgery cholecalciferol (vitamin D3) 125 mcg (5,000 unit) tablet (Vitamin D3) 125 mcg PO UD lumbar surgery polyethylene glycol 3350 17 gram/dose oral powder (Miralax) 17 g PO DAILY Take morning of surgery With a small sip of water, OTHERWISE NOTHING TO EAT OR DRINK AFTER MIDNIGHT: bupropion HCl 200 mg tablet,12 hr sustained-release (Wellbutrin SR) 200 mg PO BID clonazepam 1 mg tablet (Klonopin) 1 mg PO BID ondansetron 4 mg disintegrating tablet 4 mg PO Q6H PRN Nausea (if needed) albuterol sulfate 90 mcg/actuation aerosol inhaler 1 inh inhalation QID PRN sob (use if needed; please bring with you to hospital day of surgery if possible) escitalopram oxalate 20 mg tablet 20 mg PO QAM Take evening before surgery atorvastatin 80 mg tablet 80 mg PO HS bupropion HCl 200 mg tablet,12 hr sustained-release (Wellbutrin SR) 200 mg PO BID clonazepam 1 mg tablet (Klonopin) 1 mg PO BID omeprazole 40 mg capsule,delayed release 40 mg PO PM ondansetron 4 mg disintegrating tablet 4 mg PO Q6H PRN Nausea (if needed) albuterol sulfate 90 mcg/actuation aerosol inhaler 1 inh inhalation QID PRN sob (if needed) aspirin 81 mg tablet,delayed release 81 mg PO HS (unless surgeon directed otherwise) Other Notes If you have any questions please call us at [phone] or [phone] or [phone] or [phone]
--- NOTE | 2025-01-06 09:11 | Anesthesiology Consultation ---
Date of Service January 06, 2025 Assessment & Plan (1) Encounter for pre-operative examination: - Check BSG DOS - Infectious disease screening: Per assessment on 01/06/25- No known recent infectious disease contacts or current infectious disease symptoms. - GLP-1 medication instructions: Patient informed by PAT to stop 7 days prior to surgery- voiced understanding. DOS 01/27/25. Advised last dose to be 01/16/25. - Patient acceptable risk for surgery pending surgeon-ordered PCP preop evaluation (Delmis Villanueva [facility], appt 01/17). Chart Review Chart Review: Patient seen in Pre Admission Testing Teaching & Discussion Pre-Anesthesia Teaching/Discussion Notes: Instructed NPO after midnight before surgery,except medications with 15 cc of water. Medication instructions provided according to the PAT guidelines. History Surgery Operation Date: 01/27/25 09:35 Proposed Procedures p L3-L4 Decompression and Fusion with Spinal Cord Monitoring - Zion Calle, Height/Weight Height: 5 ft 2 in Weight: 64 kg Allergies Allergy/AdvReac Type Severity Reaction Status Date / Time cortisone Allergy Severe Muscle Verified 12/26/24 14:17 inflammation near injection site semaglutide [From Ozempic] AdvReac Severe Severe Verified 12/26/24 14:17 vomiting and weight loss meloxicam AdvReac Intermediate Caused Verified 12/26/24 14:17 kidney dysfunction NSAIDS (Non-Steroidal AdvReac Intermediate Caused Verified 12/26/24 14:17 Anti-Inflamma kidney dysfunction Medications Home Medications Medication Instructions Recorded Confirmed Last Taken atorvastatin 80 mg tablet 80 mg PO HS 03/16/20 12/26/24 05/16/21 23:00 bupropion HCl 200 mg tablet,12 hr 200 mg PO BID 03/16/20 12/26/24 05/16/21 18:00 sustained-release (Wellbutrin SR) clonazepam 1 mg tablet (Klonopin) 1 mg PO BID 03/16/20 12/26/24 05/16/21 23:00 omeprazole 40 mg capsule,delayed 40 mg PO PM 03/16/20 12/26/24 05/17/21 00:00 release ondansetron 4 mg disintegrating 4 mg PO Q6H PRN Nausea 04/15/21 12/26/24 Unknown tablet albuterol sulfate 90 mcg/actuation 1 inh inhalation QID PRN sob 12/26/24 12/26/24 Unknown aerosol inhaler aspirin 81 mg tablet,delayed 81 mg PO HS 12/26/24 12/26/24 Unknown release cholecalciferol (vitamin D3) 125 125 mcg PO UD lumbar surgery 12/26/24 12/26/24 Unknown mcg (5,000 unit) tablet (Vitamin D3) empagliflozin 25 mg tablet 25 mg PO QAM 12/26/24 12/26/24 Unknown (Jardiance) escitalopram oxalate 20 mg tablet 20 mg PO QAM 12/26/24 12/26/24 Unknown fluticasone furoate 100 1 inh inhalation DAILY PRN flare up 12/26/24 12/26/24 Unknown mcg/actuation blister powder for inhalation (Arnuity Ellipta) polyethylene glycol 3350 17 17 g PO DAILY 12/26/24 12/26/24 Unknown gram/dose oral powder (Miralax) tirzepatide 5 mg/0.5 mL 5 mg subcut WK 12/26/24 12/26/24 12/26/24 subcutaneous pen injector (Shyam) Past Medical History Medical History Anxiety Chronic obstructive pulmonary disease CKD (chronic kidney disease) Improved with NSAID discontinuation Depression Diabetes mellitus, type 2 GERD (gastroesophageal reflux disease) Controlled Hearing deficit + hearing aids (currently are not working) Hiatal hernia History of anemia History of esophageal dilatation History of hypertension No current meds Hyperlipidemia Osteoarthritis Sleep apnea CPAP (injectable) Sural neuropathy Toe/hands neuropathy Monitoring with [facility] Exercise / Class Metabolic Activity II 4-5 Yardwork/Stairs/Walk up hill (one FS: No CP, no SOB) Past Family History Family History Sister Diabetes Brother Diabetes Other No family history of adverse response to anesthesia Past Surgical History Surgical History History of arthroscopy right History of cardiac cath 2013 > angiographically normal coronary arteries History of carpal tunnel release right History of cholecystectomy History of colonoscopy History of dilatation and curettage History of esophagogastroduodenoscopy (EGD) History of foot surgery Left Foot Open Plantar Fascia Release, Tenosynovectomy Peroneal Tendons, Calcaneal Exostectomy (9/3/21): LMA#4 at [facility] History of hysterectomy History of repair of rotator cuff R/L History of tooth extraction all teeth Hx of Achilles tendon repair left x2 Hx of decompression of ulnar nerve right S/P lumbar fusion L4-L5 decompression/fusion (04/13/20): MAC#3, ETT 7.0 at [facility] Past Anesthesia History No Hx of Anesthesia Complications and No Family Hx of Anesthesia Complications History of PONV No Hx of PONV and Hx of Motion Sickness Social History Smoking Status: Former smoker tobacco type: cigarettes Do You Dip or Chew Tobacco: No Smoking End Date: Quit 12/02/24 (Hx 1/2 PPD) Hx Alcohol Use: No Hx Substance Use: No substance use type: does not use Review of Systems Patient denies chest pain, shortness of breath, dyspnea on exertion, fever, chills, cough, wheezing, palpitations. Physical Exam Vital Signs BP 17/68 P 65 TEMP 98.1 SP02 97%RA RESP 18 Physical Full cervical extension range of motion. Full TMJ range of motion. TMD > 3.5 finger breaths Mallampati Score II Dentition: edentulous Lungs: clear throughout to auscultation Cardiac: regular rate and rhythm, no murmurs noted Spine: normal Carotid arteries: negative bruit Extremities: no LE edema Lab Results Anesthesia Preop Results Results Anesthesia Widget: WBC 5.81 K/ul (4.8-10.8) 01/06/25 Hgb 12.6 g/dl (12.0-16.0) 01/06/25 Hct 37.7 % (37.0-47.0) 01/06/25 Plt 239 K/uL (130-400) 01/06/25 Na 140 mmol/L (136-145) 01/06/25 K 4.0 mmol/L (3.5-5.1) 01/06/25 Cl 106 mmol/L (98-107) 01/06/25 CO2 28 mmol/L (21-32) 01/06/25 BUN 20 mg/dl (6-23) 01/06/25 Creat 1.20 mg/dl (0.6-1.2) 01/06/25 Glucose Level 119 mg/dl (70-99(Fasting)) H 01/06/25 PT 10.3 Seconds (9.0-12.0) 01/06/25 PTT 27 Seconds (21-31) 01/06/25 INR 0.9 (0.9-1.1) 01/06/25 HA1c 6.8 % (4.5-5.6) H 01/06/25 Urine Color Yellow 01/06/25 Urine Appearance Clear (Clear) 01/06/25 Urine pH 6.0 (4.5-7.5) 01/06/25 Urine Specific [place] 1.027 (1.000-1.030) 01/06/25 Urine Protein Negative (Negative) 01/06/25 Urine Glucose (UA) 3+ (Negative) H 01/06/25 Urine Ketones Negative (Negative) 01/06/25 Urine Blood Negative (Negative) 01/06/25 Urine Nitrite Negative (Negative) 01/06/25 Urine Bilirubin Negative (Negative) 01/06/25 Urine Urobilinogen Negative (Negative) 01/06/25 Urine Leukocyte Esterase Negative (Negative) 01/06/25 Blood Type O Positive 01/06/25 Antibody Screen NEGATIVE 01/06/25 Testing Laboratory Results Urine nicotine (01/06/25): pending Electrocardiogram Date: 01/06/25 NSR at 63bpm. LAD. Chest X-Ray Date: 01/06/25 FINDINGS: Heart size and pulmonary vasculature are normal. No effusion or consolidation. Lungs are mildly hyperexpanded. IMPRESSION: No acute findings. Echocardiogram Date: 04/09/20 LVEF 53%. No regional motion normality. No significant valvular disease. Cardiac Catheterization Date: 07/13/14 Findings: + normal Coronary arteries angiographically normal.
[2025-01-27] MEDS ORDERED: DEXAMETHASONE SOD INJ 4 MG/ML VIAL ONE (09:53)
[2025-01-27] MEDS ORDERED: LIDOCAINE 2% 2 ML VIAL/AMP(20MG/ML) INFIL ONE (09:53)
[2025-01-27] MEDS ORDERED: GLYCOPYRROLATE 0.2 MG/ML VIAL ONE (09:54)
[2025-01-27] MEDS ORDERED: SUGAMMADEX SODIUM 200 MG/2 ML VIAL IV ONE (09:54)
[2025-01-27] MEDS ORDERED: ROCURONIUM BROMIDE 10 MG/ML 5 ML VIAL IV ONE (09:54)
[2025-01-27] MEDS ORDERED: HYDROmorphone INJ 2 MG/ML SYR/VIAL ONE (09:54)
[2025-01-27] MEDS ORDERED: ONDANSETRON INJ 2 MG/ML 2 ML VIAL ONE (09:54)
[2025-01-27] MEDS ORDERED: MIDAZOLAM HCL 1 MG/ML 2ML VIAL ONE (09:54)
[2025-01-27] MEDS ORDERED: PROPOFOL IV EMULSION 10 MG/ML 20 ML VIAL IV ONE (09:54)
--- NOTE | 2025-01-27 10:18 | History & Physical Bridge Note ---
Date of Service January 27, 2025 History & Physical Bridge Note I have examined the patient, reviewed the History & Physical and in the interval since the performance of the History & Physical I have noted the following changes of clinical significance: no changes noted
--- NOTE | 2025-01-27 10:19 | History & Physical Report ---
Date of Service January 27, 2025 Assessment & Plan (1) Multilevel lumbosacral spondylosis with radiculopathy: Plan: L3-L4 decompression and fusion with hardware removal L4-L5 History of Present Illness Chief Complaint: Back and leg pain Primary Care Provider: Delmis Villanueva PA-C This is a 64-year-old female who presents with chronic persistent back and leg pain after failing course of nonoperative care is here for surgical intervention. Allergies Allergy/AdvReac Type Severity Reaction Status Date / Time cortisone Allergy Severe Muscle Verified 01/27/25 10:03 inflammation near injection site semaglutide [From Ozempic] AdvReac Severe Severe Verified 01/27/25 10:03 vomiting and weight loss meloxicam AdvReac Intermediate Caused Verified 01/27/25 10:03 kidney dysfunction NSAIDS (Non-Steroidal AdvReac Intermediate Caused Verified 01/27/25 10:03 Anti-Inflamma kidney dysfunction Home Medications Medication Instructions Recorded Confirmed Type atorvastatin 80 mg tablet 80 mg PO HS 03/16/20 01/27/25 History bupropion HCl 200 mg tablet,12 hr 200 mg PO BID 03/16/20 01/27/25 History sustained-release (Wellbutrin SR) clonazepam 1 mg tablet (Klonopin) 1 mg PO BID 03/16/20 01/27/25 History omeprazole 40 mg capsule,delayed 40 mg PO PM 03/16/20 01/27/25 History release ondansetron 4 mg disintegrating 4 mg PO Q6H PRN Nausea 04/15/21 01/27/25 History tablet albuterol sulfate 90 mcg/actuation 1 inh inhalation QID PRN sob 12/26/24 01/27/25 History aerosol inhaler aspirin 81 mg tablet,delayed 81 mg PO HS 12/26/24 01/27/25 History release cholecalciferol (vitamin D3) 125 125 mcg PO UD lumbar surgery 12/26/24 01/27/25 History mcg (5,000 unit) tablet (Vitamin D3) empagliflozin 25 mg tablet 25 mg PO QAM 12/26/24 01/27/25 History (Jardiance) escitalopram oxalate 20 mg tablet 20 mg PO QAM 12/26/24 01/27/25 History fluticasone furoate 100 1 inh inhalation DAILY PRN flare up 12/26/24 01/27/25 History mcg/actuation blister powder for inhalation (Arnuity Ellipta) polyethylene glycol 3350 17 17 g PO DAILY 12/26/24 01/27/25 History gram/dose oral powder (Miralax) tirzepatide 5 mg/0.5 mL 5 mg subcut WK 12/26/24 12/26/24 History subcutaneous pen injector (Mounjaro) Past Med/Surg History Problem List (Updated 01/27/25 @ 10:19 by Zion Calle DO) Multilevel lumbosacral spondylosis with radiculopathy Carpal tunnel syndrome, left Inflammatory arthritis Exostosis of left calcaneus Peroneal tendinitis, left leg Plantar fasciitis, left Sural neuropathy Anemia Neurogenic claudication due to lumbar spinal stenosis Encounter for pre-operative examination Diabetes mellitus, type 2 NIDDM Depression Anxiety Hypertension Medical History Anxiety Chronic obstructive pulmonary disease CKD (chronic kidney disease) Improved with NSAID discontinuation Depression Diabetes mellitus, type 2 GERD (gastroesophageal reflux disease) Controlled Hearing deficit + hearing aids (currently are not working) Hiatal hernia History of anemia History of esophageal dilatation History of hypertension No current meds Hyperlipidemia Osteoarthritis Sleep apnea CPAP (injectable) Sural neuropathy Toe/hands neuropathy Monitoring with [facility] Surgical History History of arthroscopy right History of cardiac cath 2013 > angiographically normal coronary arteries History of carpal tunnel release right History of cholecystectomy History of colonoscopy History of dilatation and curettage History of esophagogastroduodenoscopy (EGD) History of foot surgery Left Foot Open Plantar Fascia Release, Tenosynovectomy Peroneal Tendons, Calcaneal Exostectomy (05/17/21): LMA#4 at [facility] History of hysterectomy History of repair of rotator cuff R/L History of tooth extraction all teeth Hx of Achilles tendon repair left x2 Hx of decompression of ulnar nerve right S/P lumbar fusion L4-L5 decompression/fusion (04/13/20): MAC#3, ETT 7.0 at [facility] Family History Sister Diabetes Brother Diabetes Other No family history of adverse response to anesthesia Social History (Updated 02/12/24 @ 13:32 by Zion J. Giorgio, DO) Smoking Status: Former smoker Tobacco Type: Cigarettes Smoking End Date: Quit 12/02/24 (Hx 1/2 PPD); Second Hand Exposure: Yes; Do You Dip or Chew Tobacco: No; Tobacco Cessation Education Requested by Patient: No Hx Alcohol Use: No Hx Substance Use: No Preferred Language: Omani Communication Ability: Effective Visual Impairment: No Limitations Clamp Truck Driver Required: No Beliefs That Will Affect Care: None Current Living Situation: Family Current Living Situation Comment: lives with daughter Other Information That Helps Us Care for You: No Feels Safe at Home: Yes Safety Concerns: Feels Safe At This Time Assistive Devices: Cane, Contacts, CPAP and Glasses Assistive Devices Comment: bilateral hearing aides are not currently working - no teeth Physical Exam Physical Exam: Patient is alert and oriented Heart regular rhythm Lungs clear
[2025-01-27] MEDS: LR 60ML/HR IV SCH (10:23)
[2025-01-27] MEDS: LR 15ML/HR IV SCH (10:23)
[2025-01-27] MEDS: ACETAMINOPHEN 500 MG TAB PO SCH (10:26)
[2025-01-27] MEDS: GABAPENTIN 300 MG CAP PO SCH (10:27)
[2025-01-27] MEDS ORDERED: ePHEDrine sulfate 50 MG/ML AMP IV PRN (10:32)
[2025-01-27] MEDS ORDERED: PROMETHAZINE HCL 6.25 MG in SODIUM CHLORIDE 0.9% 50 ML IV PRN (10:32)
[2025-01-27] MEDS ORDERED: ATROPINE SULFATE 0.1 MG/ML 10ML SYR IV PRN (10:32)
[2025-01-27] MEDS: ceFAZolin 2000MG 2,000 MG/15 ML SYR IV SCH (10:49)
[2025-01-27] MEDS: BUPIVACAINE/EPINEPHRINE 0.25% 1:200,000 30 ML VIAL ONE (11:32)
[2025-01-27] MEDS: ceFAZolin 330 MG/ML 1 GM VIAL ONE (11:33)
[2025-01-27] MEDS: FLOSEAL HEMOSTATIC MATRIX 10ML TOP ONE (12:23)
--- NOTE | 2025-01-27 12:24 | Operative Report ---
Post Operative Report Pre & Post Diagnosis Operation Date: 01/27/25 10:55 Pre-Op Diagnosis: #1 lumbar spondylosis with radiculopathy #2 lumbar spinal stenosis Post-Op Diagnosis: Same I identified the patient and participated in the time-out.: Yes Procedure Operation Date: 01/27/25 10:55 Actual Procedures #1 removal of posterior instrumentation L4-L5 #2 exploration of fusion L4-5. #3 lumbar decompression with bilateral medial facetectomies and foraminotomies L2- L3 L3-L4. #4 posterior spinal fusion L3-L4. #5 placement posterior instrumentation L3-L4 using camber. #6 interbody fusion L3-L4. #7 placement of Spira 10 x 26 mm cage at L3-L4. #8 placement locally harvested morselized autograft and posterior gutters. #9 placement infuse collagen sponge, with Koros in the posterior lateral gutters and os design interbody space. #10 application of versa wrap of the exposed dura. Surgeon Zion Calle, Staff Radiographer Janes Herrera Estimated Blood Loss 50 Findings Consistent with Post-Op Diagnosis Specimens None Indications This is a 64-year-old female presents above-mentioned diagnosis after failing course of nonoperative care is here for surgical invention. Description of Procedure Patient was met with identified informed consent obtained. Patient was then bony en to the operative suite underwent patient placed in a prone position on Arnaldo table top the Giorgio frame. All bony prominences well-padded eyes inspected to ensure no external precipice spinal. This point lumbar spine was prepped and draped normal sterile fashion. Sharp dissection with the assistance of Bovie cautery performed down to and exposing the lamina and transverse processes of L3 and instrumentation at L4-L5 bilaterally. I then proceeded to remove the hardware bilaterally and explored the fusion mass noting it to be mature and intact. I then performed a complete laminectomy of L3 with bilateral medial facetectomies and foraminotomies addressing severe subarticular and foraminal neural compression. This was followed by partial laminectomy of L2 with bilateral medial facetectomies to address all subarticular stenosis. Pedicle screws was then placed in L3-L4-L5 bilaterally with assistance of fluoroscopy and the pelvis was replaced. By way of transforaminal approach on the left complete discectomy of L3-L4 was performed endplates curetted to subcortical bleeding bone. A 10 x 26 mm spiral cage filled with os design bone graft was then tapped in position. The rods then compressed locked in a final position bilaterally but the transverse processes of L3-L4 burred to subcortical bleeding bone. Infuse collagen sponge, with Koros and local autograft placed in posterior gutters. Versa wrap placed over the exposed dura. 15 round GINA drain inserted. The incision was then closed with 1 Vicryl the fascia 2-0 Vicryl subcutaneously and 4 Monocryl for final skin closure. Steri-Strips sterile dressing placed. Patient waken taken to PACU in stable condition. Please note Janes barrios was present at the entire procedure on the patient positioning complex portion of the surgery and final skin closure. Im ordering 10 grams of Collagen Powder ([facility] A6010 Primary Dressing) and 10 bordered super absorbent ([facility] A6196 Secondary Dressing) to treat an incision wound that was caused by a spine procedure. The incision is approximately 2 cm(W) x 2 cm(L) down to the spinal column and epidural space 2 cm (D) in size and is a full thickness wound showing no signs of infection. Collagen comes in 1 gram packets so 10 packets were ordered. Given the size of the wound, with moderate exudate I chose to order a 10 day supply. The patient will be provided instructions for proper application of the collagen wound kit. The patient will be asked to apply the collagen powder daily and then cover it with sterile dressings dispensed. Collagen was selected as I expect the collagen to attract monocytes and fibroblasts, act as a sacrificial substrate for MMPs, and ultimately proved a matrix for tissue and vessel growth. The collagen will act as a primary dressi ng in this scenario. It is medically necessary for proper healing of these wounds to improve bioavailability and contact with each wound surface, this is also to help prevent infection of wounds and promote healing ultimately leading to a better healing outcome and limit the risk of infection. I attest to the content of the Intraoperative Record and any orders documented therein. Any exceptions are noted below.
[2025-01-27] MEDS: HYDROmorphone INJ 2 MG/ML SYR/VIAL IV PRN (12:50)
--- NOTE | 2025-01-27 14:01 | Fluoroscopy Report ---
FL lumbar spine 2-3V CLINICAL HISTORY: L3-L4 Decompression/fusion COMPARISON STUDY: None FLUOROSCOPY TIME: 22 seconds FLUOROSCOPY IMAGES: 2 EXPOSURE DOSE: 8 mGy FINDINGS: Fluoroscopy was provided for lower lumbar fusion. IMPRESSION: Intraoperative fluoroscopy. ACT 112: Negative or not required by law. Electronically signed by: Stanley Covington M.D. 01/27/2025 2:00 PM
[2025-01-27] MEDS ORDERED: traMADol HCL 50 MG TABLET PO PRN (14:13)
[2025-01-27] MEDS ORDERED: LORazepam 2 MG/1 ML VIAL IV PRN (14:13)
[2025-01-27] MEDS ORDERED: NALOXONE HCL 0.4 MG/1 ML VIAL/CARP IV PRN (14:13)
[2025-01-27] MEDS ORDERED: diphenhydrAMINE Capsule 25 MG CAP PO PRN (14:13)
[2025-01-27] MEDS ORDERED: LORazepam 0.5 MG TAB PO PRN (14:13)
[2025-01-27] MEDS ORDERED: PHARMACY GLYCEMIC MGMT CONSULT PRN (14:13)
[2025-01-27] MEDS ORDERED: ACETAMINOPHEN 1,000 MG/100 ML VIAL IV PRN (14:13)
[2025-01-27] MEDS ORDERED: DO NOT ADMINISTER PNEUMOCOCCAL VACCINE PRN (14:13)
[2025-01-27] MEDS ORDERED: METOCLOPRAMIDE HCL INJ 5 MG/ML 2 ML VIAL IV PRN (14:13)
[2025-01-27] MEDS ORDERED: ALUMINUM/MAGNESIUM SUSP 30 ML UDC PO PRN (14:13)
[2025-01-27] MEDS ORDERED: SOD PHOSPHATE/SOD BIPHOSPHATE ENEMA 132 ML BTL PR PRN (14:13)
[2025-01-27] MEDS ORDERED: DO NOT ADMINISTER FLU VACCINE PRN (14:13)
[2025-01-27] MEDS ORDERED: MAGNESIUM HYDROXIDE SUSP 30 ML UDC PO PRN (14:13)
[2025-01-27] MEDS ORDERED: PROMETHAZINE 12.5 MG/50.5 ML BAG IV PRN (14:13)
[2025-01-27] MEDS ORDERED: ALBUTEROL HFA 8 GM INHALER INH PRN (14:13)
[2025-01-27] MEDS ORDERED: ONDANSETRON 4 MG OD TAB PO PRN ×2 (14:13)
[2025-01-27] MEDS ORDERED: bisacodyL 10 MG SUPP PR PRN (14:13)
--- NOTE | 2025-01-27 14:31 | Anesthesiology Progress Note ---
Date of Service January 27, 2025 Anesthesia Post Procedure Vital Signs Vital Signs: Temp Pulse Pulse Resp BP Pulse Ox O2 Del Method 01/27/25 14:15 36.8 C 73 17 105/67 94 Room Air 01/27/25 13:45 66 12 109/63 97 Room Air 01/27/25 13:35 36.4 C L 70 7 L 120/70 93 Room Air 01/27/25 13:25 66 17 108/56 L 99 Room Air 01/27/25 13:15 68 16 114/57 L 99 Room Air 01/27/25 13:05 71 11 L 118/68 100 Room Air 01/27/25 12:55 68 15 116/64 100 Room Air 01/27/25 12:45 74 10 L 126/76 100 Room Air 01/27/25 12:39 36.2 C L 73 14 125/75 100 Oxymask 01/27/25 10:10 36.8 C 73 20 128/68 96 Room Air O2 Flow Rate 01/27/25 14:15 01/27/25 13:45 01/27/25 13:35 01/27/25 13:25 01/27/25 13:15 01/27/25 13:05 01/27/25 12:55 01/27/25 12:45 8 01/27/25 12:39 8 01/27/25 10:10 Pain Intensity Lower Back: Pain Intensity: 6 Transfer of Care Handoff Completed per policy Notes Mental Status: alert / awake / arousable and participated in evaluation Nausea / Vomiting: adequately controlled Pain: adequately controlled Airway Patency, RR, SpO2: stable & adequate BP & HR: stable & adequate Hydration State: stable & adequate Anesthetic Complications: no major complications apparent and Pt Satisfied with anesthetic care
--- NOTE | 2025-01-27 14:44 | Hospitalist Consultation ---
Date of Consultation January 27, 2025 Assessment & Plan (1) Multilevel lumbosacral spondylosis with radiculopathy: (2) Status post lumbar spine surgery for decompression of spinal cord: (3) Diabetes mellitus, type 2: (4) Hypertension: (5) Hyperlipidemia: (6) Chronic obstructive pulmonary disease: (7) CKD (chronic kidney disease): (8) GERD (gastroesophageal reflux disease): (9) History of esophageal dilatation: (10) Sleep apnea: (11) Depression: (12) Anxiety: Plan S/p Lumbar decompression fusion L3-L4 - POD #0 - Last hemoglobin on 01/06/2025 =12.6 - Pain management, bowel regimen and DVT ppx per the primary team - PT/OT consults - pt requesting wheelchair script prior to discharge - Follow am CBC to monitor for acute blood loss - Flores cath in place, dc likely this evening vs tomorrow morning HTN HLD Hx of cardiac cath for heart disease, no stenting, medical management - Cont home meds: atorvastatin, asa 81 mg daily starting 01/28 DM II - Glycemic pharmacy consulted, cont accuchecks achs, jardiance daily. Takes Mounjaro 5mg subq on Mondays, if still in hospital Thursday administer. - DM/ clears and advance per ortho spine COPD YANG on CPAP - Cont HS cpap - at home is noncompliant, Reports significant weight loss has made the mask she has at home not fit correctly - Cont home inhalers - Does not wear supplemental o2 at baseline GERD Esophageal stricture s/p dilation - Cont PPI, stable Anxiety Major depressive disorder - Cont wellbutrin, lexapro, clonazepam 1 mg BID. She also has prn meds including ativan and hydroxyzine ordered per primary team. Use hydroxyzine first line. Would avoid ativan prn if possible with clonazepam ordered as standing med from home. Thank you for involving us in the care of Ms. Bolaños. Please do not hesitate to call with questions or concerns. At this time medicine service will follow along. DVT ppx: teds, scds Lines: PIV x 2 FEN/GI: DM/clears, advance diet as tolerated per primary team CODE: full code Dispo: From home, likely to remain in the hospital x 1-2 days I spent a total of 45 minutes with greater than 50% of that time face to face with the patient, personally reviewing all current laboratories, imaging studies, past medication reconciliation, outpatient chart review, and discussion with specialists to collaborate care for the patient excluding time spent in the performance of separately billed services or time spent by another provider/QHP. Please see attending documentation for corrections and/or additions. Supervising Physician Co-Signing Physician Notes Patient seen and examined at bedside. Patient sitting comfortably eating jello. Accompanied by daughter. No concerns at this time. On exam, noted GINA drain with output noted, wound noted. POD 0 from lumbar decompression and fusion. Incentive spirometer, daily labs trend creatinine, Hgb, leukocytosis. I have seen and discussed the case with the collaborating advanced practitioner. I agree with the above H&P. I have reviewed and confirmed the patients medical history, the findings on physical examination, and the patients diagnosis and treatment plan with Miriam Martell PA-C and agree with the information documented. I spent a total of 20 minutes coordinating, documenting, and providing care for this patient excluding time spent in the performance of separately billed services. All of the aforementioned completed outside of collaborating with the assigned advanced practitioner for a full treatment plan. I have reviewed the advanced practitioner's documentation, and I agree with, and take responsibility for the plan of care History of Present Illness Reason for Consultation: Medical management Requesting Physician: Dr. Calle Attending Physician: Zion Calle, History of Present Illness this is a 64-year-old female with PMHx of COPD, HTN, HLD, heart disease s/p cardiac catheterization on medical management and no stents were placed, DM type II, CKD stage III, GERD, hiatal hernia, esophageal stricture s/p esophageal dilation, YANG on CPAP, previous tobacco smoking which she quit at the beginning of November 2024, hearing deficit, major depressive disorder, anxiety, who underwent L3-L4 decompression fusion, L4-L5 hardware removal by Dr. Calle on 01/27/2025 following a fall a couple months ago that resulted in a tailbone injury. Daughter is present at bedside. Patient reports she is having a significantly sore throat, she is tolerating clears sleep without any difficulty. She is requesting something for her throat, will order her cough drops and Chloraseptic spray. Patient tolerated procedure well. Denies any acute complaints. She is wearing 2 L oxygen, does not wear anything at baseline. She also has CPAP at bedtime ordered previously at home, reports significant weight loss being on once weekly Mounjaro, this was switched from a different agent she had several months ago that was causing her issues. She is tolerating Mounjaro without difficulty. Notes that the mask of CPAP no longer fits her appropriately. Will order CPAP here through respiratory as she did not bring her home machine with her. patient is also requesting a wheelchair prescription prior to discharge home as she does not have one. No other acute complaints. Last bowel movement was yesterday. Allergies Allergy/AdvReac Type Severity Reaction Status Date / Time cortisone Allergy Severe Muscle Verified 01/27/25 10:03 inflammation near injection site tuna oil Allergy Intermediate Verified 01/27/25 10:56 shrimp Allergy Verified 01/27/25 10:29 semaglutide [From Ozempic] AdvReac Severe Severe Verified 01/27/25 10:03 vomiting and weight loss meloxicam AdvReac Intermediate Caused Verified 01/27/25 10:03 kidney dysfunction NSAIDS (Non-Steroidal AdvReac Intermediate Caused Verified 01/27/25 10:03 Anti-Inflamma kidney dysfunction Home Medications Medication Instructions Recorded Confirmed Type atorvastatin 80 mg tablet 80 mg PO HS 03/16/20 01/27/25 History bupropion HCl 200 mg tablet,12 hr 200 mg PO BID 03/16/20 01/27/25 History sustained-release (Wellbutrin SR) clonazepam 1 mg tablet (Klonopin) 1 mg PO BID 03/16/20 01/27/25 History omeprazole 40 mg capsule,delayed 40 mg PO PM 03/16/20 01/27/25 History release ondansetron 4 mg disintegrating 4 mg PO Q6H PRN Nausea 04/15/21 01/27/25 History tablet albuterol sulfate 90 mcg/actuation 1 inh inhalation QID PRN sob 12/26/24 01/27/25 History aerosol inhaler aspirin 81 mg tablet,delayed 81 mg PO HS 12/26/24 01/27/25 History release cholecalciferol (vitamin D3) 125 125 mcg PO UD lumbar surgery 12/26/24 01/27/25 History mcg (5,000 unit) tablet (Vitamin D3) empagliflozin 25 mg tablet 25 mg PO QAM 12/26/24 01/27/25 History (Jardiance) escitalopram oxalate 20 mg tablet 20 mg PO QAM 12/26/24 01/27/25 History fluticasone furoate 100 1 inh inhalation DAILY PRN flare up 12/26/24 01/27/25 History mcg/actuation blister powder for inhalation (Arnuity Ellipta) polyethylene glycol 3350 17 17 g PO DAILY 12/26/24 01/27/25 History gram/dose oral powder (Miralax) tirzepatide 5 mg/0.5 mL 5 mg subcut WK 12/26/24 01/27/25 History subcutaneous pen injector (Mounjaro) Patient History Medical History Anxiety Chronic obstructive pulmonary disease CKD (chronic kidney disease) Improved with NSAID discontinuation Depression Diabetes mellitus, type 2 GERD (gastroesophageal reflux disease) Controlled Hearing deficit + hearing aids (currently are not working) Hiatal hernia History of anemia History of esophageal dilatation History of hypertension No current meds Hyperlipidemia Osteoarthritis Sleep apnea CPAP (injectable) Sural neuropathy Toe/hands neuropathy Monitoring with [facility] Surgical History History of arthroscopy right History of cardiac cath 2013 > angiographically normal coronary arteries History of carpal tunnel release right History of cholecystectomy History of colonoscopy History of dilatation and curettage History of esophagogastroduodenoscopy (EGD) History of foot surgery Left Foot Open Plantar Fascia Release, Tenosynovectomy Peroneal Tendons, Calcaneal Exostectomy (05/17/21): LMA#4 at [facility] History of hysterectomy History of repair of rotator cuff R/L History of tooth extraction all teeth Hx of Achilles tendon repair left x2 Hx of decompression of ulnar nerve right S/P lumbar fusion L4-L5 decompression/fusion (04/13/20): MAC#3, ETT 7.0 at [facility] Family History Sister Diabetes Brother Diabetes Other No family history of adverse response to anesthesia Social History (Updated 02/12/24 @ 13:32 by Zion Alvares DO) Smoking Status: Former smoker Tobacco Type: Cigarettes Smoking End Date: Quit 12/02/24 (Hx 1/2 PPD); Second Hand Exposure: Yes; Do You Dip or Chew Tobacco: No; Tobacco Cessation Education Requested by Patient: No Hx Alcohol Use: No Hx Substance Use: No Preferred Language: Ivorian Communication Ability: Effective Visual Impairment: No Limitations Calf Skinner Required: No Beliefs That Will Affect Care: None Current Living Situation: Family Current Living Situation Comment: lives with daughter Other Information That Helps Us Care for You: No Feels Safe at Home: Yes Safety Concerns: Feels Safe At This Time Assistive Devices: Cane Assistive Devices Comment: bilateral hearing aides are not currently working - no teeth Review of Systems Review of Systems: Constitutional: No fever, sweats or chills Eyes: No diplopia, no worsening or blurred vision ENT: normal hearing, no trouble swallowing Respiratory: No cough, sputum, dyspnea at rest or on exertion Cardiovascular: No chest pain, tightness or palpitations Abdomen: No pain, nausea, vomiting, diarrhea or constipation Musculoskeletal: No joint pain, calf pain, swelling Neurologic: No weakness, numbness/tingling, or balance problems Psychiatric: No anxiety or depression Skin: No rash or itch Physical Exam Physical Exam: General: awake, alert, no apparent distress, white female Head: Normocephalic, atraumatic ENT: PERRL, EOMI, no pharyngeal exudate, mucous membranes dry, upper endentulous Chest: Clear to auscultation, on 2 L via NC, O2 sats mid 90s, no adventitious breath sounds Cardiac: Regular rate and rhythm, no murmur, no JVD, normal peripheral pulses, good capillary refill Abdominal: NABS x 4 quadrants, soft, nondistended, nontender to palpation, no rebound or guarding Back: dressing c/d/i, GINA drain in place with serosanginous outs : flores cath draining clear yellow urine Extremities: Normal inspection, no peripheral edema or erythema, calfs nontender to palpation Psych: Normal mood and affect Neuro: AAO x 3, strength intact bilaterally and rated 5/5, no motor deficits, speech is clear, no peripheral sensory deficits Results & Data Results & Data Vital Signs (Past 12 Hours) Vital Signs Temp Pulse Pulse Resp BP Pulse Ox O2 Del Method 01/27/25 13:45 66 12 109/63 97 Room Air 01/27/25 13:35 36.4 C L 70 7 L 120/70 93 Room Air 01/27/25 13:25 66 17 108/56 L 99 Room Air 01/27/25 13:15 68 16 114/57 L 99 Room Air 01/27/25 13:05 71 11 L 118/68 100 Room Air 01/27/25 12:55 68 15 116/64 100 Room Air 01/27/25 12:45 74 10 L 126/76 100 Room Air 01/27/25 12:39 36.2 C L 73 14 125/75 100 Oxymask 01/27/25 10:10 36.8 C 73 20 128/68 96 Room Air O2 Flow Rate 01/27/25 13:45 01/27/25 13:35 01/27/25 13:25 01/27/25 13:15 01/27/25 13:05 01/27/25 12:55 01/27/25 12:45 8 01/27/25 12:39 8 01/27/25 10:10 Laboratory Results 01/27/25 01/27/25 01/27/25 15:03 13:05 12:45 POC Glucose 166 H 146 H 128 H 01/27/25 10:23 POC Glucose 157 H Diagnostic Findings Lumbar Spine X-Ray 01/27/25 06:00 FL lumbar spine 2-3V CLINICAL HISTORY: L3-L4 Decompression/fusion COMPARISON STUDY: None FLUOROSCOPY TIME: 22 seconds FLUOROSCOPY IMAGES: 2 EXPOSURE DOSE: 8 mGy FINDINGS: Fluoroscopy was provided for lower lumbar fusion. IMPRESSION: Intraoperative fluoroscopy. ACT 112: Negative or not required by law. Electronically signed by: Stanley Covington M.D. 01/27/2025 2:00 PM
[2025-01-27] MEDS ORDERED: CHLORASEPTIC (PHENOL) 1.4% SOLN 180 ML BTL MT PRN (15:01)
--- NOTE | 2025-01-27 15:06 | Pharmacy Report ---
Pharmacy Glycemic Short Note 2 - Date of Service January 27, 2025 - Glycemic Short BSG Results (Last 24 hours): 01/27/25 01/27/25 01/27/25 10:23 12:45 13:05 POC Glucose 157 H 128 H 146 H OUTPATIENT ANTIDIABETIC REGIMEN: * Jardiance 25mg PO QAM * HbA1c 6.8% (01/06/25) ASSESSMENT: * Kiley is a 64 year old female admitted status post lumbar decompression/fusion with a history of T2DM. Pharmacy has been consulted to assist with glycemic management while inpatient. * Preoperative BSG this AM slightly elevated, given dexamethasone 8mg IV preoperatively. Continued dexamethasone 4mg IV Q8H x3 doses ordered. Will give basal insulin 20 units SQ x1 now. Reassess any need for further basal in AM. * NovoLog at a weight based stress of 3. PLAN FOR INPATIENT GLYCEMIC CONTROL: * Hold outpatient oral diabetes medications * Basal insulin * Lantus 20 units SQ now x1 * Bolus insulin * NovoLog per scale ACHS or Q6hrs while NPO * Goal Range: Low 110 mg/dL - High 140 mg/dL * Correction Factor: 25 mg/dL/unit * Nutritional / Prandial insulin per carb ratio of 1 unit per 8 grams CHO consumed
[2025-01-27] MEDS: LANTUS PER UNIT CHARGE SC ONE (15:33)
[2025-01-27] MEDS: INSULIN ASPART PER UNIT CHARGE SC SCH (15:33)
[2025-01-27] MEDS: dexAMETHasone 4 MG in SYRINGE 0 ML IV SCH (15:34)
[2025-01-27] MEDS: COUGH DROP (SUGAR FREE) LOZ 24 LOZ/1 BOX BUCCAL STA (15:36)
[2025-01-27] MEDS: HYDROmorphone INJ 1 MG/ML SYRINGE IV PRN (17:50)
[2025-01-27] MEDS: ceFAZolin 1000MG 1,000 MG/7.5 ML SYR IV SCH (17:50)
[2025-01-27] MEDS: PANTOprazole 40 MG TAB PO SCH (20:49)
[2025-01-27] MEDS: clonazePAM 1 MG TAB PO SCH (20:49)
[2025-01-27] MEDS: DOCUSATE SODIUM/SENNA 50/8.6MG TAB PO SCH (20:49)
[2025-01-27] MEDS: ASPIRIN 81 MG ECTAB PO SCH (20:49)
[2025-01-27] MEDS: ATORVASTATIN 40 MG TAB PO SCH (20:49)
[2025-01-27] MEDS: buPROPion SR 100 MG TABCR PO SCH (20:50)
--- OUTSIDE RECORDS SUMMARY | 2025-01-27 20:58 | External Medical Summary | Summary of Care ---
Author Name Unknown Organization [facility] Address [address] [place] [address] Phone [phone] Care Team Providers [employer] Name Role Phone Delmis Villanueva PA-C Primary Care Provider [phone] Reason for Referral * Ancillary Services (Within 10 days (routine)) - Authorized Specialty Diagnoses / Procedures Referred By Tc [place] Referred To Contact Gastroenterology Diagnoses History of colon polyps Screening for colon cancer [place] [address] Phone: tel: fax: Referral ID Status Reason Start Date Expiration Date Visits Requested Visits Authorized [id number] Authorized Ancillary Services Required 01/17/2025 [id number] Question Answer Referral Priority Within 10 days (routine) Where should this appointment be scheduled? [facility] Comments ALERT: Do not order for pediatric patients (18 years or younger). Cancel off screen and order PEDS GASTROENTEROLOGY CONSULT (Type: 1 visit only-Evaluate and Treat) The following Pt. Instructions are available: - Gastro Colonoscopy Prep Instructions [[id number]] - Gastro Colonoscopy Prep Instructions (Belizean Version) [[id number]] Go to the Pt. Instructions section within the Visit Navigator to access. Colonoscopy ASGE Guidelines: Postadenoma resection: 3-10 adenomas or adenoma with villous features, greater than or equal 1 cm, or with high-grade dysplasia (3 yr intervals) ADDITIONAL INFORMATION 1. Is the patient on Coumadin? No 2. Is the patient on Pradaxa? No * Ancillary Services (Within 10 days (routine)) - Authorized Specialty Diagnoses / Procedures Referred By Tc [place] Referred To Contact Gastroenterology Diagnoses Gastroesophageal reflux disease without esophagitis Dysphagia, unspecified type History of esophageal stricture Delmis Villanueva PA-C [address] [address] Phone: tel: fax: Referral ID Status Reason Start Date Expiration Date Visits Requested Visits Authorized [id number] Authorized Ancillary Services Required 01/17/[phone] Question Answer Referral Priority Within 10 days (routine) Where should this appointment be scheduled? [facility] Comments Upper Endoscopy ASGE Guidelines Dysphagia or odynophagia ADDITIONAL INFORMATION 1. Is the patient on Coumadin? No 2. Is the patient on Pradaxa? No Reason for Visit * Reason Comments Physical-Exam Pre-op exam. Lumbar fusion. Dr. Alva CASTAÑEDA 01/27 Encounter Details Date Type Department Care Team (Late st Contact Info) Description 01/17/2025 1:00 PM EDT Office Visit [facility] [address] [phone] Delims Villanueva PA-C [address] [id number] Pre-op examination*; Type 2 diabetes mellitus with hemoglobin A1c goal of less than 7.0% ([facility]); Type 2 diabetes mellitus with proteinuria ([facility]); Type 2 diabetes mellitus with stage 3b chronic kidney disease, without long-term current use of insulin ([facility]); Type 2 diabetes mellitus with cataract ([facility]); Coronary artery disease involving rapp[place]ock coronary artery of rapp[place]ock heart without angina pectoris; Hyperlipidemia with target LDL less than 70; Chronic kidney disease, stage 3b (HCC); YANG on CPAP; Gastroesophageal reflux disease without esophagitis; Current use of proton pump inhibitor; Dysphagia, unspecified type; Nausea; History of esophageal stricture; History of colon polyps; Screening for colon cancer; Dysfunction of both eustachian tubes; Eczema, unspecified type Allergies Active Allergy Reactions Criticality Noted Date Comments Cortisone Other (Please comment) High 04/27/2014 Had cortisone injection in her R elbow that caused muscle inflammation Other reaction(s): Muscle inflammation near injection site Meloxicam Renal complications High 03/06/2016 Other reaction(s): Caused kidney dysfunction Sertraline Hcl Other (Please comment) 7 Muscle spasms, shaking documented as of this encounter (statuses as of 01/20/2025) Medications BuPROPion HCl ER, SR, 200 MG TB12 Take 1 Tablet by mouth in the morning and 1 Tablet before bedtime. 016 Active Aspirin 81 MG Tablet Take 1 Tablet by mouth in the morning. Active Escitalopram Oxalate 20 MG Oral Tablet Take 1 Tablet by mouth in the morning. 017 Active clonazePAM (KLONOPIN) 1 MG Tablet Take 1 Tablet by mouth in the morning and 1 Tablet before bedtime. 018 Active ARIPiprazole 5 MG Oral Tablet Take 1 Tablet by mouth in the morning. 30 Tab 5 021 Active Polyethylene Glycol 3350 17 GM/SCOOP Oral Powder (Miralax)Indicati ons:Constipation, unspecified constipation type TAKE 17 GRAMS BY MOUTH DAILY 255 g 5 022 Active CPAP every night at bedtime. Auto 5-20 cm Active Acetaminophen 500 MG Oral Tablet (Tylenol) Take 1-2 tablets by mouth every 6 hours as needed for pain 024 Active Seebright Reflect w/Device Kit Use as directed. Use to check blood sugar once daily 1 Kit 4 2:41 PM EDT 024 Active Seebright In Vitro Strip (Glucose Blood)Indications :Type 2 diabetes mellitus with hemoglobin A1c goal of less than 7.0% ([facility]) Use for testing blood glucose twice a day. E11.9 100 Strip 11 4 2:41 PM EDT 024 Active Zounds [employer] Delica Lancets 33G Check blood sugar twice daily E 11.9 100 Each 3 4 2:41 PM EDT 024 Active Diclofenac Sodium 1 % External Gel (Voltaren)Indicat ions:Arthritis of right wrist,Arthritis of both feet,Pain in both feet Apply 2 g topically to affected area 3 times a day as needed for Pain. Apply to wrists or feet. 350 g 3 024 Active Atorvastatin Calcium 80 MG Oral Tablet (Lipitor)Indicati ons:Hyperlipidemi a with target LDL less than 70 TAKE 1 TABLET BY MOUTH IN THE MORNING 90 Tablet 3 025 Active Omeprazole 40 MG Oral Capsule Delayed Release (PriLOSEC)Indicat ions:Gastroesopha geal reflux disease without esophagitis TAKE 1 CAPSULE BY MOUTH IN THE MORNING 1 HOUR BEFORE THE FIRST MEAL OF THE DAY 90 Capsule 1 025 Active Arnuity Ellipta 100 MCG/ACT Inhalation Aerosol Powder Breath Activated (fluticasone Furoate)Indicatio ns:Mild persistent asthma without complication INHALE 1 PUFF BY MOUTH IN THE MORNING 90 Each 1 025 Active Albuterol Sulfate HFA 108 (90 Base) MCG/ACT Inhalation Aerosol SolutionIndicatio ns:Dry cough INHALE 2 PUFFS BY MOUTH EVERY 4 HOURS NEEDED FOR COUGH, SHORTNESS OF BREATH OR WHEEZING 18 g 3 025 Active Mounjaro 5 MG/0.5ML Subcutaneous Solution Auto-injector (Tirzepatide) Inject 5 mg under the skin once a week. 2 mL 5 11:49 AM EDT 025 Active Jardiance 25 MG Oral Tablet (Empagliflozin)In dications:Type 2 diabetes mellitus with hemoglobin A1c goal of less than 7.0% ([facility]) TAKE 1 TABLET BY MOUTH IN THE MORNING 90 Tablet 3 025 Active Vitamin D3 1.25 MG (05665 UT) Oral Capsule Take 1 Capsule by mouth in the morning. Active Ondansetron 4 MG Oral Tablet Disintegrating (Zofran)Indicatio ns:Nausea Place 1 Tablet on tongue every 8 hours as needed for Nausea. dissolve on tongue. 20 Tablet 025 Active Fluticasone Propionate 50 MCG/ACT Nasal SuspensionIndicat ions:Dysfunction of both eustachian tubes Administer 2 Sprays into each nostril in the morning. 1 Each 025 Active Triamcinolone Acetonide 0.1 % External Cream (Aristocort)Indic ations:Eczema, unspecified type Apply topically to affected area 2 times a day. To affected area. 15 g 1 025 Active Fluticasone Propionate 50 MCG/ACT Nasal SuspensionIndicat ions:Dysfunction of both eustachian tubes Administer 2 Sprays into each nostril in the morning. 1 Each 5 023 2024 Discontinued(R efill) Ondansetron 4 MG Oral Tablet Disintegrating (Zofran)Indicatio ns:Nausea Place 1 Tablet on tongue every 8 hours as needed for Nausea. dissolve on tongue. 20 Tablet 5 024 2024 Discontinued(R efill) traZODone HCl 50 MG Oral Tablet (Desyrel) Take 1 Tablet by mouth at bedtime. 2024 Discontinued(P atient preference/dis continuation) Triamcinolone Acetonide 0.1 % External Cream (Aristocort)Indic ations:Eczema, unspecified type Apply topically to affected area 2 times a day. To affected area. 15 g 1 024 2024 Discontinued(R efill) Baclofen 10 MG Oral Tablet (Lioresal)Indicat ions:Muscle cramps Take 0.5-1 Tablets by mouth 2 times a day as needed for Muscle spasms. 60 Tablet 024 2024 Discontinued documented as of this encounter (statuses as of 01/20/2025) Active Problems Problem Noted Date Diagnosed Date Other problems related to social environment 01/2023 Uncomplicated asthma 11/03/2022 Major depressive disorder, recurrent, moderate 0 11/03/2022 Chronic kidney disease, stage 3b 04/21/2022 Overview: Per CKD protocol Benign hypertension with stage 3b chronic kidney disease 04/21/2022 Overview: Per CKD protocol Type 2 diabetes mellitus wit h stage 3b chronic kidney disease 01/22/2021 Overview: Per CKD protocol Major depressive disorder, r ecurrent severe without psychotic features 11/02/2020 Overview (04/23/2021): 04/23/2021: following with [facility] Post-traumatic stress disorder, unspecified 10/15 Coronary artery disease invo lving [place]ock coronary artery of [place] heart without angina pectoris 11/02/2020 Overview (04/23/2021): CT chest 06/2014: Severe coronary artery calcifications including LAD branch. Cardiac cath 06/2014: coronary arteries angiographically normal Type 2 diabetes mellitus with cataract 0 Generalized anxiety disorder 10/07/2019 Type 2 diabetes mellitus with proteinuria 2018 Essential hypertension with goal blood pressure less than 140/90 03/06/2016 Hyperlipidemia with target LDL less than 70 02/13 YANG on CPAP 12/04/2014 Type 2 diabetes mellitus wit h hemoglobin A1c goal of less than 7.0% 11/02/2014 Overview (01/08/2016): ICD-10 update of inactive term Migraine, unspecified, not i ntractable, without status migrainosus 11/02/2014 Tobacco use disorder 03/30/2014 Gastroesophageal reflux disease without esophagi tis 03/30/2014 Overview (10/03/2019): Updated code on PL due to AMP error documented as of this encounter (statuses as of 01/20/2025) Resolved Problems Problem Noted Date Diagnosed Date Resolved Date Food insecurity 11/25/2021 06/26/2022 Overview (06/04/2022): Per [facility] Protocol Progress Notes by Katie Ruiz, Health Physics Technician 11/04/2021 Signed Received referral for positive food insecurity screening, Outreach to patient to confirm results. Pt indicates they are food insecure. Patient currently receiving SNAP benefits: Yes Patient resides in [place]. Chronic kidney disease, stage 3a 02/26/2021 04/24/2022 Overview: Per CKD protocol Benign hypertension with sta ge 3a chronic kidney disease 01/22/2021 04/24/2022 Overview: Per CKD protocol Diabetes mellitus with stage 3 chronic kidney disease 07/23/2020 01/24/2021 Overview: Per CKD protocol Type 2 diabetes mellitus wit h unspecified diabetic retinopathy without macular edema 06/19/2020 04/23/2021 Major depressive disorder, r ecurrent, moderate 10/07/2019 04/23/2021 COPD, severity to be determined 05/21/2018 06/04/2018 COPD, severity to be determined 05/21/2018 06/04/2018 Benign hypertension with CKD (chronic kidney disease) stage III 04/21/2017 01/24/2021 Overview: Per CKD protocol Type 2 diabetes mellitus wit h stage 3 chronic kidney disease, without long-term current use of insulin 04/21/2017 07/26/2020 Overview: Per CKD protocol DM type 2 with diabetic peripheral neuropathy 01/25/20 17 06/06/2022 Prinzmetal angina 07/14/2014 07/14/2014 Chest pain 07/13/2014 07/14/2014 Recurrent major depressive disorder 03/30/2014 04/19/2020 Kidney disease, chronic, sta ge III (GFR 30-59 ml/min) 03/30/2014 12/25/2017 Dysuria 03/29/2014 05/13/2016 Gross hematuria 03/29/2014 04/21/2017 Microscopic hematuria 03/29/20142016 Type II or unspecified type diabetes mellitus without mention of complication, not stated as uncontrolled 03/29/2014 08/07/2014 Other and unspecified hyperlipidemia 03/29/2014 08/07/2014 Essential hypertension 03/29/201408/07 Overview (06/15/2017): ICD-10 update of inactive term Proteinuria 03/06/2014 10/07/2019 Hematuria, microscopic 03/06/201406/14 Hematuria, gross 05/13/2016 documented as of this encounter (statuses as of 01/20/2025) Immunizations Name Administration Dates Next Due Hepatitis B, 20+ yrs 10/29/2015,04/02/2015,03/05 Pneumococcal Conjugate Vacc, 13 Valent (Prevnar) 12/16/2016 Pneumococcal Conjugate Vacci ne, 20-valent ([id number]) 11/07/2024 Pneumococcal Polysaccharide PPV23 (Pneumovax) 06/29/2007 RSV Vac., Bivalent, Perfusio n F, Pf,0.5 Ml (Abrysvo) 06/03/2024 Seasonal Influenza Vac., MDV , IM, 0.5 mL (Fluzone) 06/09/2014,06/14/2013,05/19/2012,06/16,11/04/2010,07/03/2008 Seasonal Influenza, PF, 6 M & above, IM , (FluLaval or Fluzone) 06/08/2023,06/06/2022,09/25/2021,05/17,06/14/2019,06/04/2018,09/01/2017 Seasonal Influenza, Quadriva lent, No Preserve, IM 07/22/2016,06/28/2015 Seasonal Influenza, Trivalen t, (IIV3), PF, (Fluzone) 06/29/2024 TD, Preservative Free 04/23/2021 TDAP, Age 7 and older, IM (Adacel) 11/04/2010 Zoster Vaccine Recombinant (Shingrix) 05/03/2020 ,11/15/2019 documented as of this encounter Social History Tobacco Use Types Packs/Day Years Used Date Smoking Tobacco: Former Cigarettes 0.5 35 1 990 - 2024 Smokeless Tobacco: Never Tobacco Cessation:Counseling Given: Not Answered Comments:less than a pack/day 06/06/22 Alcohol Use Standard Drinks/Week Comments Not Currently 0 (1 standard drink = 0.6 oz pur e alcohol) OCC PHQ-2 Answer Date Recorded PHQ Adult Total Score 4 04/19/2024 Hunger Vital Sign Answer Date Recorded Within the past 12 months, y ou worried that your food would run out before you got the money to buy more. Never true 06/23/20 23 Within the past 12 months, t he food you bought just didn't last and you didn't have money to get more. Never true 06/23/2023 Childcare Answer Date Recorded Do you feel overwhelmed with taking care of a child, family member or friend? No 06/23/2023 Does your family need help f inding childcare? (Household - for ages 0-17 years) Not on file 06/23/2023 Clothing Answer Date Recorded Have you been unable to get clothing when it was really needed? No 06/23/2023 Is your family able to get c lothes or diapers when needed? (Household - for ages 0-17 years) Not on file 06/23/2023 Personal Safety Answer Date Recorded Do you feel unsafe or have concerns for your saf ety? No 06/23/2023 Do you have concerns for you r family's safety? (Household - for ages 0-17 years) Not on file 06/23/2023 Utilities Answer Date Recorded Do you have trouble paying y our heating, water, or electric bill? No 06/23/2023 Is your family able to pay t he heat, water, or electric bill? (Household - for ages 0-17 years) Not on file 06/23/2023 Does your family have access to good internet? (Household - for ages 0-17 years) Not on file 06/23/2023 Employment Status Answer Date Recorded Are you unemployed or without regular income? Ye s 06/23/2023 Does the household have a re lar source of income? (Household - for ages 0-17 years) Not on file 06/23/2023 Social Connections Answer Date Recorded How often do you feel lonely or isolated from th ose around you? Rarely 06/23/2023 Financial Resource Strain Answer Date R ecorded Do you have any trouble payi ng for your medications, or do you think you might in the future? No 06/23/2023 Does your family have troubl e paying for medicine? (Household - for ages 0-17 years) Not on file 06/23/2023 Transportation Needs Answer Date Record ed READ ONLY Do you have troubl e getting a ride to medical visits or work? Never True 06/23/2023 Does your family have a hard time getting a ride to doctors visits? (Household - for ages 0-17 years) Not on file 06/23/2023 Has lack of transportation k ept you from medical appointments, meetings, work, or from getting things needed for daily living? Check all that apply. (Adult - for ages 18 years and over) Not on file 06/23/2023 Do you (or your family) have trouble finding or paying for a ride (transportation)? (Household - for ages 0-17 years) Not on file 06/23/2023 Housing Stability Answer Date Recorded Do you currently live in a s helter or have no steady place to sleep at night? No 06/23/2023 READ ONLY Do you think you a re at risk of becoming homeless? No 06/23/2023 Does your family worry about paying for your home or becoming homeless? (Household - for ages 0-17 years) Not on file 1 Are you homeless or worried that you might be in the future? (Adult - for ages 18 years and over) Not on file Are you (or your family) aisha eless or worried that you might be in the future? (Household - for ages 0-17 years) Not on file Food Insecurity Answer Date Recorded Do you need food for this week? No 06/23/2023 Are you able to get enough f ood for your family? (Household - for ages 0-17 years) Not on file 06/23/2023 Does your family need food t his week? (Household - for ages 0-17 years) Not on file 06/23/2023 Do you always have enough fo od for your family? 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[employer] Not on file Not on file Not on file documented as of this encounter Last Filed Vital Signs Vital Sign Reading Time Taken Comments Blood Pressure 119/79 01/17/2025 12:48 PM EDT Pulse 88 01/17/2025 12:48 PM EDT Temperature 36.9 °C (98.5 °F) 01/17/2025 12:48 PM E DT Respiratory Rate 16 01/17/2025 12:48 PM EDT Oxygen Saturation 98% 01/17/2025 12:48 PM EDT Inhaled Oxygen Concentration - - Weight 62.7 kg (138 lb 3.2 oz) 01/17/2025 12:48 PM EDT Height - - Body Mass Index 25.28 11/19/2024 3:39 PM EST documented in this encounter Patient Instructions * Patient Instructions* Delmis Villanueva PA-C - 01/17/2025 1:39 PM EDT Recommend co-Q10 supplement 200mg daily. Advise low carbohydrate, whole food, Mediterranean diet. Increase fiber - vegetables, nuts, seeds. Avoid vegetable oils (read food labels!), margarine, processed foods, and sweets/added sugar. Use Matthews oil, avocado oil, coconut oil, real butter, or ghee in your kitchen. Exercise daily. documented in this encounter Progress Notes * Delmis Villanueva PA-C - 01/17/2025 1:45 PM EDT Images from the original note were not included. Pre-Operative Medical Evaluation Procedure Information Type of Surgery: Lumbar surgery Referring Physician / Surgeon: Dr. Calle Date of procedure: 01/27/25 History of Present Illness Kiley Bolaños is a 64 year old female with diabetes and chronic kidney disease who presents for a routine checkup and preoperative clearance for lumbar surgery. She is scheduled for lumbar decompression and fusion at L3 to L4 on January 27, 2025, following a fall a couple of months ago that resulted in a tailbone injury. Preoperative testing, including blood work, EKG, and chest x-ray, has been completed. Her diabetes is managed with Mounjaro 5 mg weekly and Jardiance 25 mg daily. Her A1c has improved from 7.7% to 7.1% over the past six months. Recent blood work was done on December 21, 2024, and January 06, 2025, with pending results from her rheumatoid arthritis doctor. She experiences heartburn and difficulty swallowing due to esophageal stricture, managed with omeprazole 40 mg. Food and large pills sometimes get stuck in her throat, causing pain. She has had esophageal dilation in the past and feels she is due for another procedure. She also needs a colonoscopy,as her last one in 2020 found polyps and recommended a repeat in three years. She takes Zofran as needed for nausea, especially when riding in a car with someone else. She uses Flonase for allergies and Arnuity for mild persistent asthma, which is triggered by certain scents like dryer sheets. She is on psychiatric medications including Abilify 5 mg, Wellbutrin 200 mg twice daily, clonazepam1 mg daily, Lexapro 20 mg, and trazodone 50 mg at bedtime, though she does not take trazodone often. She uses a CPAP machine for sleep apnea and reports improved daytime alertness since discontinuingher blood pressure medication. She has chronic kidney disease with a stable GFR of 41. She takes atorvastatin 80 mg for cholesterol, which causes muscle and joint pain. She also takes a baby aspirin daily and uses Tylenol for pain. She has a history of eczema, primarily affecting her left elbow, managed with a steroid cream. She takes MiraLAX and senna for constipation. She quit smoking over a month ago and is a former smoker. She has a history of heart disease and had a heart catheterization over seven years ago, but no stents were placed. She does not currently see a special education teacher and reports no history of heart attack orstroke. No chest pain or shortness of breath, and she can walk a block or climb stairs without these symptoms, though her back pain limits her mobility. Medical History Problem List: Other problems related to social environment (06/18/2023) Uncomplicated asthma (11/03/2022) Major depressive disorder, recurrent, moderate (HCC) (11/03/2022) Chronic kidney disease, stage 3b (HCC) (04/21/2022) Benign hypertension with stage 3b chronic kidney disease (HCC) (2021) Food insecurity (11/25/2021) Chronic kidney disease, stage 3a (HCC) (02/26/2021) Type 2 diabetes mellitus with stage 3b chronic kidney disease (HCC) (01/22/2021) Benign hypertension with stage 3a chronic kidney disease (HCC) (2020) Major depressive disorder, recurrent severe without psychotic features ([facility]) (11/02/2020) Post-traumatic stress disorder, unspecified (11/02/2020) Coronary artery disease involving [place]ock coronary artery of [place]ock heart without angina pectoris (11/02/2020) Diabetes mellitus with stage 3 chronic kidney disease (HCC) (2019) Type 2 diabetes mellitus with unspecified diabetic retinopathy without macular edema ([facility]) (06/19/2020) Type 2 diabetes mellitus with cataract ([facility]) (03/23/2020) Major depressive disorder, recurrent, moderate ([facility]) (10/07/2019) Generalized anxiety disorder (10/07/2019) Type 2 diabetes mellitus with proteinuria ([facility]) (10/04/2018) COPD, severity to be determined ([facility]) (05/21/2018) COPD, severity to be determined ([facility]) (05/21/2018) Benign hypertension with CKD (chronic kidney disease) stage III ([facility]) (04/21/2017) Type 2 diabetes mellitus with stage 3 chronic kidney disease, without long-term current use of insulin ([facility]) (04/21/2017) DM type 2 with diabetic peripheral neuropathy ([facility]) (01/24/2017) Essential hypertension with goal blood pressure less than 140/90 () Hyperlipidemia with target LDL less than 70 (03/06/2016) YANG on CPAP (12/04/2014) Type 2 diabetes mellitus with hemoglobin A1c goal of less than 7.0% ([facility]) (11/02/2014) Migraine, unspecified, not intractable, without status migrainosus (11/02/2014) Prinzmetal angina ([facility]) (07/14/2014) Chest pain (07/13/2014) Recurrent major depressive disorder ([facility]) (03/30/2014) Kidney disease, chronic, stage III (GFR 30-59 ml/min) ([facility]) (2013) Tobacco use disorder (03/30/2014) Gastroesophageal reflux disease without esophagitis (03/30/2014) Dysuria (03/29/2014) Gross hematuria (03/29/2014) Microscopic hematuria (03/29/2014) Type II or unspecified type diabetes mellitus without mention of complication, not stated as uncontrolled (03/29/2014) Other and unspecified hyperlipidemia (03/29/2014) Essential hypertension (03/29/2014) Proteinuria (03/06/2014) Hematuria, microscopic (03/06/2014) Hematuria, gross Current Medications Fluticasone Propionate 50 MCG/ACT Nasal Suspension, 2 [place], Each Nostril, Daily(AM) Ondansetron 4 MG Oral Tablet Disintegrating (Zofran), 4 mg, On Tongue, Q8H PRN Triamcinolone Acetonide 0.1 % External Cream (Aristocort), Apply topically to affected area 2 timesa day. To affected area. Vitamin D3 1.25 MG (31264 UT) Oral Capsule, 50,000 Units, Oral, Daily(AM) Jardiance 25 MG Oral Tablet (Empagliflozin), TAKE 1 TABLET BY MOUTH IN THE MORNING Mounjaro 5 MG/0.5ML Subcutaneous Solution Auto-injector (Tirzepatide), Inject 5 mg under the skin once a week. Albuterol Sulfate HFA 108 (90 Base) MCG/ACT Inhalation Aerosol Solution, INHALE 2 PUFFS BY MOUTH EVERY 4 HOURS NEEDED FOR COUGH, SHORTNESS OF BREATH OR WHEEZING Arnuity Ellipta 100 MCG/ACT Inhalation Aerosol Powder Breath Activated (fluticasone Furoate), 1 Puff, Inhalation, Daily(AM) Omeprazole 40 MG Oral Capsule Delayed Release (PriLOSEC), 40 mg, Oral, Daily(AM) Atorvastatin Calcium 80 MG Oral Tablet (Lipitor), TAKE 1 TABLET BY MOUTH IN THE MORNING Diclofenac Sodium 1 % External Gel (Voltaren), 2 g, Topical, TID PRN OneTouch Delica Lancets 33G, Check blood sugar twice daily E 11.9 Génie NumériqueTouch Verio In Vitro Strip (Glucose Blood), Use for testing blood glucose twice a day. E11.9 Génie NumériqueTouch Verio Reflect w/Device Kit, Use as directed. Use to check blood sugar once daily Acetaminophen 500 MG Oral Tablet (Tylenol), Take 1-2 tablets by mouth every 6 hours as needed for pain CPAP, every night at bedtime. Auto 5-20 cm Polyethylene Glycol 3350 17 GM/SCOOP Oral Powder (Miralax), TAKE 17 GRAMS BY MOUTH DAILY ARIPiprazole 5 MG Oral Tablet, 5 mg, Oral, Daily(AM) clonazePAM (KLONOPIN) 1 MG Tablet, 1 mg, Oral, BID(AM/PM) Escitalopram Oxalate 20 MG Oral Tablet, 20 mg, Oral, Daily(AM) Aspirin 81 MG Tablet, 81 mg, Oral, Daily(AM) BuPROPion HCl ER, SR, 200 MG TB12, 1 Tablet, Oral, BID(AM/PM) Docusate Sodium 100 MG Oral Capsule (Colace), 100 mg, Oral, Q24H Allergies: Cortisone, Meloxicam, and Zoloft [sertraline hcl] Past Medical History: has a past medical history of Anxiety and depression, Background diabetic retinopathy(362.01), Diabetic neuropathy (HCC), DM type 2, goal A1c below 7 (2002), Dysuria (03/29/2014), Endometriosis, Grosshematuria (03/29/2014), Hematuria, gross, HTN, goal below 140/90, Microscopic hematuria (03/29/2014), Migraines, Obesity, Obstructive sleep apnea (adult) (pediatric), Other and unspecified hyperlipidemia (03/29/2014), Post traumatic stress disorder (PTSD), Type II or unspecified type diabetes mellituswithout mention of complication, not stated as uncontrolled (03/29/2014), and Unspecified essential hypertension (03/29/2014). Past Surgical History: has a past surgical history that includes information (2001); dilation and curettage (d&c) (2006); hysteroscopy,diagnostic (2006); remove gallbladder (12/31/2008); EGD, Flexible, Diagnostic (04/27/2014); Coronary Angiography w/left heart Cath (07/13/2014); Total Abd Hysterectomy w/wo Removal ofTube(s) (2012); shoulder arthroscopy/decompression (Right, 01/31/2015); shoulder arthroscopy surgery (Right, 01/31/2015); artho,shoul,w/rotator cuff (Right, 01/31/2015); information (Right, 2015); incision of foot/toe fascia (Left, 08/29/2016); Gastrocnemius Recession (Left, 08/29/2016); EGD, Flexible, Diagnostic (N/A, 04/11/2019); EGD, Flexible, Diagnostic (N/A, 04/11/2019); Colonoscopy, Diagnostic (Rectum) (N/A, 12/18/2020); pr excise hand/foot neuroma (Left, 09/2017); EGD, Flexible, Diagnostic (N/A, 04/30/2021); foot/toe surgery nec (Left, 05/17/2021); lumbar spine fusion, post interbody (04/13/2020); and tendon sheath incision, finger. Social History: reports that she quit smoking about 4 months ago. Her smoking use included cigarettes. She started smoking about 35 years ago. She has a 17.5 pack-year smoking history. She has never used smokeless tobacco. She reports that she does not currently use alcohol. She reports that she does not currentlyuse drugs after having used the following drugs: Marijuana. Family History: family history includes Alcohol and Other Disorders Associated in her daughter; Cancer (age of onset: 65) in her brother; Diabetes in her aunt (unspecified); Heart Disorder in her father and mother; Heart disease in her sister; Hypertension in her sister; Liver disease in her daughter; No Known Problems in her daughter, daughter, and son. Anesthesia History Type of Anesthesia: General Endotracheal and Caudal block Anesthesia reaction: No History of surgical complications: None Personal history of venous thromboembolic disease: No Objective BP 119/79 | Pulse 88 | Temp 98.5 °F (36.9 °C) (Tympanic) | Resp 16 | Wt 138 lb 3.2 oz (62.7 kg) |LMP 03/26/2007 | SpO2 98% | BMI 25.28 kg/m² | BSA 1.66 m² BP Readings from Last 3 Encounters: 01/17/25 119/79 12/28/24 111/41 11/19/24 109/67 Wt Readings from Last 3 Encounters: 01/17/25 138 lb 3.2 oz (62.7 kg) 12/28/24 139 lb (63 kg) 11/19/24 147 lb (66.7 kg) BMI Readings from Last 3 Encounters: 01/17/25 25.28 kg/m² 12/28/24 25.42 kg/m² 11/19/24 26.89 kg/m² Physical Exam Physical Exam Vitals and nursing note reviewed. Constitutional: General: She is not in acute distress. Appearance: Normal appearance. She is not ill-appearing, toxic-appearing or diaphoretic. HENT: Right Ear: Tympanic membrane, ear canal and external ear normal. Left Ear: Tympanic membrane, ear canal and external ear normal. Nose: Nose normal. Mouth/Throat: Pharynx: Oropharynx is clear. Eyes: Extraocular Movements: Extraocular movements intact. Conjunctiva/sclera: Conjunctivae normal. Pupils: Pupils are equal, round, and reactive to light. Neck: Vascular: No carotid bruit. Cardiovascular: Rate and Rhythm: Normal rate and regular rhythm. Heart sounds: Normal heart sounds. Pulmonary: Effort: Pulmonary effort is normal. Breath sounds: Normal breath sounds. Abdominal: General: Bowel sounds are normal. There is no distension. Palpations: Abdomen is soft. Tenderness: There is no abdominal tenderness. There is no guarding. Musculoskeletal: General: No swelling or deformity. Cervical back: Normal range of motion and neck supple. Right lower leg: No edema. Left lower leg: No edema. Lymphadenopathy: Cervical: No cervical adenopathy. Skin: Coloration: Skin is not pale. Findings: No bruising, erythema or lesion. Neurological: General: No focal deficit present. Mental Status: She is alert and oriented to person, place, and time. Cranial Nerves: No cranial nerve deficit. Motor: No weakness. Coordination: Coordination normal. Gait: Gait normal. Psychiatric: Mood and Affect: Mood normal. Behavior: Behavior normal. Thought Content: Thought content normal. Results LABS Vitamin B12: below reference range (12/21/2024) Rheumatoid factor: negative (12/21/2024) Reviewed lab results: Imaging results in the last 6 months XR KNEE 4 OR MORE VIEWS Result Date: 11/19/2024 IMPRESSION: 1. Trace lateral subluxation of the patella suspected. 2. Osteoarthritic/degenerative changes, as described. 3. Chondrocalcinosis of the lateral meniscus. THIS DOCUMENT HAS BEEN ELECTRONICALLY SIGNED BY DENNIS PATEL MD XR FOOT 3 OR MORE VIEWS Result Date: 09/09/2024 IMPRESSION 1. No acute findings. 2. Chronic changes as above. XR ANKLE 3 OR MORE VIEWS Result Date: 09/09/2024 IMPRESSION 1. No acute findings. 2. Chronic changes as above. US AAA SCREEN, RADIOLOGY Result Date: 08/25/2024 IMPRESSION: No demonstrable focal abdominal aorta aneurysm BMP results Recent Labs Units 01/06/25 0000 12/21/24 1312 06/27/24 1359 12/02/23 1109 SODIUM - [facility] mmol/L -- 138 141 138 POTASSIUM - [facility] MMOL/L 4.0 4.5 4.5 4.4 CHLORIDE - [facility] mmol/L -- 105 107 102 CO2 - [facility] mmol/L -- 22 23 23 CREATININE - [facility] MG/DL 1.20 1.4* 1.5* 1.5* BUN - [facility] mg/dL -- 18 15 21* Lipid panel results Recent Labs Units 12/21/24 1312 06/27/24 1359 06/02/23 1049 CHOLESTEROL - [facility] mg/dL 127 125 134 HDL CHOLESTEROL - [facility] mg/dL 47* 41* 50 TRIGLYCERIDES - [facility] mg/dL 55 74 90 CBC results Recent Labs Units 01/06/25 0000 12/21/24 1312 06/27/24 1359 11/13/23 1130 WBC K/uL -- 6.11 5.38 8.93 HGB G/DL 12.6 13.0 12.6 14.9 HCT % -- 41.6 40.4 47.2* PLT K/uL -- 290 340 339 HbA1c results Recent Labs Units 01/06/25 0000 12/21/24 1312 06/27/24 1359 HEMOGLOBIN A1C - [facility] % -- 7.1* 7.7* HEMOGLOBIN, [id number] LAB % 6.8* -- -- TSH results Recent Labs Units 12/21/24 1312 06/27/24 1359 06/02/23 1049 TSH - [facility] uIU/mL 1.49 0.98 1.41 Vitamin D results Recent Labs Units 06/02/23 1049 25-HYDROXY VITAMIN D - [facility] ng/mL 26 Hepatic panel results Recent Labs Units 12/21/24 1312 06/27/24 1359 11/13/23 1130 PROTEIN - [facility] g/dL 6.5 6.3 7.5 BILIRUBIN, TOTAL - [facility] mg/dL 0.4 0.2 0.5 ALKALINE PHOSPHATASE - [facility] U/L 85 101 113 AST - [facility] U/L 14 13 15 ALT - [facility] U/L 15 14 12 EKG: Stable Done 01/06/25 Surgical Risk Revised Cardiac Risk Index (RCRI) High-risk type of surgery? 0=No History of ischemic heart disease? 0=No History of congestive heart failure? 0=No History of cerebrovascular disease? 0=No Pre-operative treatment with insulin? 0=No Preoperative serum creatinine >2.0 mg/dL? 0=No Revised cardiac index score No Risk Factors- 0.4% (95% CI: 0.1-0.8) STOP-BANG Score for Obstructive Sleep Apnea Do you snore loudly? 0=No Do you often feel tired, fatigued, or sleepy during the daytime? 0=No Has anyone observed you stop breathing during sleep? 0=No Do you have (or are you being treated for) high blood pressure? 0=No BMI greater than 35 kg/m^2? 0=No Age greater than 50 years? 1=Yes Neck circumference greater than 40 cm? 0=No Male? 0=No STOP-BANG Score 0 points - low risk Functional and Surgical Risk Assessment Functional status is good (greater than 4 METS). Patient is indeterminate medical risk for the listed procedure. Assessment and Plan Assessment & Plan Pre-operative clearance for lumbar surgery Scheduled for L3 to L4 decompression and fusion on January 27. Pre-operative testing completed. Smoking cessation achieved. No cardiac clearance needed unless EKG results indicate otherwise. - Fax note to Dr. Calle for pre-operative clearance. - Ensure all pre-operative testing results are available for review. Esophageal stricture Esophageal stricture with heartburn and dysphagia. Symptoms suggest need for repeat dilation. - Order EGD for evaluation and possible dilation. Type 2 diabetes mellitus Type 2 diabetes mellitus managed with Mounjaro and Jardiance. Recent A1c improved to 7.1%. - Continue Mounjaro 5 mg weekly. - Continue Jardiance 25 mg daily. - Monitor A1c levels. Chronic kidney disease, stage 3 Chronic kidney disease stage 3 with GFR at 41. Regular nephrology follow-up. Heart disease Heart disease managed with atorvastatin. Discussed muscle pain side effects and benefits of statin therapy. CoQ10 supplement suggested. - Continue atorvastatin 80 mg daily. - Recommend CoQ10 supplement for muscle pain. Asthma, mild persistent Mild persistent asthma managed with Arnuity Ellipta. No recent exacerbations. - Continue Arnuity Ellipta 100 mcg daily. - Avoid known asthma triggers. Sleep apnea Sleep apnea managed with CPAP. No daytime somnolence reported. - Continue CPAP therapy. Eczema Eczema primarily affecting left elbow. Steroid cream provides relief. - Refill steroid cream for eczema management. Wellness Visit Routine wellness visit. Blood pressure well-controlled. Thyroid examination normal. - Perform physical examination. - Order colonoscopy due to history of polyps. - Conduct pre-operative physical for lumbar surgery. 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) Coronary artery disease involving [place] coronary artery of [place]ock heart without angina pectoris Hyperlipidemia with target LDL less than 70 Chronic kidney disease, stage 3b (HCC) - COMPREHENSIVE METABOLIC PANEL; Future; Expected date: 07/20/2025 - CBC; Future; Expected date: 07/20/2025 - ALBUMIN / CREATININE RATIO, URINE; Future; Expected date: 07/20/2025 YANG on CPAP Gastroesophageal reflux disease without esophagitis - UPPER ENDOSCOPY GI REFERRAL OP Current use of proton pump inhibitor - VITAMIN B12; Future; Expected date: 07/20/2025 Dysphagia, unspecified type - UPPER ENDOSCOPY GI REFERRAL OP Nausea - Ondansetron 4 MG Oral Tablet Disintegrating (Zofran); Place 1 Tablet on tongue every 8 hours as needed for Nausea. dissolve on tongue. History of esophageal stricture - UPPER ENDOSCOPY GI REFERRAL OP History of colon polyps - COLONOSCOPY, GI REFERRAL OP Screening for colon cancer - COLONOSCOPY, GI REFERRAL OP Dysfunction of both eustachian tubes - Fluticasone Propionate 50 MCG/ACT Nasal Suspension; Administer 2 Sprays into each nostril in the morning. Eczema, unspecified type - Triamcinolone Acetonide 0.1 % External Cream (Aristocort); Apply topically to affected area 2 times a day. To affected area. Perioperative medication adjustments and instructions no Text in this note was generated using an ambient documentation service. I discussed the use of a device to record and summarize our discussion today. All persons present during the encounter consented to its use. documented in this encounter Plan of Treatment Upcoming Encounters Date Type Department Care Team (Late st Contact Info) Description 04/24/2025 2:00 PM EDT Nurse Only Ancillary 1st Floor, [address] [place] [phone] [place], Nurse Annual Wellness, RN 21 [facility] [place] [id number] 07/19/2025 10:45 AM EST Hospital Encounter [facility], Endoscopy [address] [place] [phone] Montez Mendenhall, DO [address] [place] [address] 07/19/2025 10:45 AM EST - 07/19/2025 11:45 AM EST Surgery [facility], Endoscopy [address] [place] [phone] Monetz Mendenhall, DO [address] [place] [address] COLONOSCOPY FLEXIBLE PROXIMAL DIAGNOSTIC 08/22/2025 1:00 PM EST [address] [phone] Pharmac[address], [address] [place] [address] 08/22/2025 1:40 PM EST Office Visit [address] [place] [phone] Delmis Villanueva [facility]-C [facility] [id number] 09/26/2025 2:40 PM EST Office Visit Nephrology, [address] [place] [phone] Ester Agauyo MD [address] [place] [address] [place] [address] Scheduled Orders Name Type Priority Associated Diagnoses Orde r Schedule COMPREHENSIVE METABOLIC PANEL Lab Routine Type 2 diabetes mellitus with hemoglobin A1c goal of less than 7.0% (HCC) Chronic kidney disease, stage 3b (HCC) Expected: 07/20/2025 (Approximate), Expires: 01/17/2026 CBC Lab Routine Type 2 diabetes mellitus with hemoglobin A1c goal of less than 7.0% (HCC) Chronic kidney disease, stage 3b (HCC) Expected: 07/20/2025 (Approximate), Expires: 01/17/2026 HEMOGLOBIN A1C Lab Routine Type 2 diabetes mellitus with hemoglobin A1c goal of less than 7.0% (HCC) Expected: 07/20/2025 (Approximate), Expires: 01/17/2026 ALBUMIN / CREATININE RATIO, URINE Lab Routine Type 2 diabetes mellitus with hemoglobin A1c goal of less than 7.0% (HCC) Chronic kidney disease, stage 3b (HCC) Expected: 07/20/2025 (Approximate), Expires: 01/17/2026 VITAMIN B12 Lab Routine Current use of proton pump inhibitor Expected: 07/20/2025 (Approximate), Expires: 01/17/2026 Scheduled Procedures Name Priority Associated Diagnoses Date/Ti me COLONOSCOPY FLEXIBLE PROXIMA L DIAGNOSTIC Recall History of colonic polyps Gastroesophageal reflux disease without esophagitis Dysphagia, unspecified type History of esophageal stricture 07/19/2025 10:45 AM EST ESOPHAGOGASTRODUODENOSCOPY ( EGD), FLEXIBLE, TRANSORAL, DIAGNOSTIC Recall History of colonic polyps Gastroesophageal reflux disease without esophagitis Dysphagia, unspecified type History of esophageal stricture 07/19/2025 10:45 AM EST Scheduled Referrals Name Type Priority Associated Diagnoses Orde r Schedule UPPER ENDOSCOPY GI REFERRAL OP Referral Within 10 days (routine) Gastroesophageal reflux disease without esophagitis Dysphagia, unspecified type History of esophageal stricture Ordered: 01/17/2025 COLONOSCOPY, GI REFERRAL OP Referral Within 10 days (routine) History of colon polyps Screening for colon cancer Ordered: 01/17/2025 Health Maintenance Due Date Last Done Comments Cologuard 2004 Fecal Occult Blood Test 2004 Sigmoidoscopy 2004 Colonoscopy 12/19/2023 12/18/2020, 12/18/2020 Colorectal Cancer Screening 12/19/2023 COVID-19 Vaccine ( season) 2024 Depression Monitoring 04/19/2025 04/19/2024 Diabetic Foot Exam 04/19/2025 04/19/2024, 0 04/17/2023, 06/06/2022, Additional history exists Diabetic Eye Exam 07/04/2025 07/04/2024, , 05/12/2023, Additional history exists GFR 07/08/2025 01/06/2025, 04/0 05/2025, 06/27/2024, Additional history exists HbA1c 07/08/2025 01/06/2025, 04/0 05/2025, 06/27/2024, Additional history exists Mammogram 08/01/2025 08/01/2024, 07/15, 07/15/2022, Additional history exists Albumin/Creatinine Ratio 08/02/2025 024, 06/27/2024, 07/02/2023, Additional history exists B-12 12/21/2025 12/21/2024, 06/14, 06/02/2023, Additional history exists CKD PHOS USE SMARTSET 73671 12/21/2025 04/0 05/2025, 06/02/2023, 05/01/2022, Additional history exists CKD HGB USE SMARTSET 21103 01/06/202601/06, 12/21/2024, 06/27/2024, Additional history exists DXA Scan 08/25/2026 08/25/2016 DTap/Tdap Vaccines (3 - Td or Tdap) 04/23/2031 04/23/2021, 11/04/2010 Hepatitis B Vaccine Completed 10/29/2015, 04/02/2015, 03/05/2015 Zoster Vaccines Completed 05/03/2020, 11/15/2019 RETIRED - COLONOSCOPY-EVERY 5 YRS AGES 18-100 Discontinued 12/18/2020, 12/18/2020 Influenza Vaccine (FLU shot) Completed 06/29/2024, 06/08/2023, 06/06/2022, Additional history exists Pneumococcal Vaccine: 50+ Years Completed 11/07/2024, 12/16/2016, 06/29/2007 EKG Completed 01/06/2025, 05/16, 05/15/2020, Additional history exists HPV (Gardasil) Vaccine Aged Out No lo nger eligible based on patient's age to complete this topic MENINGOCOCCAL (MENACTRA/MENVEO) Aged Out No longer eligible based on patient's age to complete this topic Meningitis B Vaccine (Bexsero/Trumemba) Aged Out No longer eligible based on patient's age to complete this topic documented as of this encounter Medical Devices Implanted Type Area Consumer Affairs Specialist Device Identifier Shelf Expiration Date Model / Serial / Lot Suture [place] 5.5 3 - [id number] Implanted:Qty : 1 on 01/31/2015 by Delvis Sheppard MD at OR [facility] Right: Shoulder [employer] *DO NOT USE* 10/15/2019 [id number] / / [id number] documented as of this encounter Visit Diagnoses Diagnosis Pre-op examination- Primary Preoperative examination, unspecified Type 2 diabetes mellitus with hemoglobin A1c goal of less than 7.0% (HCC) Type 2 diabetes mellitus with proteinuria (HCC) Type 2 diabetes mellitus with stage 3b chronic kidney disease, without long-term current use of insulin (HCC) 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) Coronary artery disease involving [place] coronary artery of [place] heart without angina pectoris Hyperlipidemia with target LDL less than 70 Other and unspecified hyperlipidemia Chronic kidney disease, stage 3b (HCC) YANG on CPAP Obstructive sleep apnea (adult) (pediatric) Gastroesophageal reflux disease without esophagitis Esophageal reflux Current use of proton pump inhibitor Dysphagia, unspecified type Nausea Nausea alone History of esophageal stricture Personal history of other diseases of digestive system History of colon polyps Personal history of colonic polyps Screening for colon cancer Special screening for malignant neoplasms, colon Dysfunction of both eustachian tubes Dysfunction of Eustachian tube Eczema, unspecified type History of colonic polyps Personal history of colonic polyps Gastroesophageal reflux disease without esophagitis Esophageal reflux Dysphagia, unspecified type History of esophageal stricture Personal history of other diseases of digestive system documented in this encounter Advance Directives * Full Code (Latest Code Status on File) Date Activated Date Inactivated Comments 07/13/2014 6:45 PM 07/14/2014 7:12 PM This order reflects the patients wishes and were consensually agreed upon. Healthcare Agents on File Name Relationship Healthcare Agent [facility] Communication [facility] Care Repr esentative (appointed verbally by patient or by statute hierarchy) Care Teams [employer] Counsel[employer] Relationship Specialty Start Date End Date Delmis Villanueva PA-C 21 [place] [phone] PCP - General Physician [employer] 06/18/23 documented as of this encounter"
--- OUTSIDE RECORDS SUMMARY | 2025-01-27 20:58 | External Medical Summary | Summary of Care ---
Author Name Unknown Organization [facility] Address [address] [place] [address] Phone [phone] Care Team Providers Care Label Folder Name Role Phone Delmis Villanueva PA-C Primary Care Provider [phone] Encounter Details Date Type Department Care Team (Late st Contact Info) Description 01/19/2025 Orders Only [facility] [address] [facility] [place] [phone] Delmis Villanueva PA-C [facility] [place] [phone] Allergies Active Allergy Reactions Criticality Noted Date Comments Cortisone Other (Please comment) High 04/27/2014 Had cortisone injection in her R elbow that caused muscle inflammation Other reaction(s): Muscle inflammation near injection site Meloxicam Renal complications High 03/06/2016 Other reaction(s): Caused kidney dysfunction Sertraline Hcl Other (Please comment) 7 Muscle spasms, shaking documented as of this encounter (statuses as of 01/19/2025) Medications BuPROPion HCl ER, SR, 200 MG TB12 Take 1 Tablet by mouth in the morning and 1 Tablet before bedtime. 6 Active Aspirin 81 MG Tablet Take 1 Tablet by mouth in the morning. Active Escitalopram Oxalate 20 MG Oral Tablet Take 1 Tablet by mouth in the morning. 7 Active clonazePAM (KLONOPIN) 1 MG Tablet Take 1 Tablet by mouth in the morning and 1 Tablet before bedtime. 8 Active ARIPiprazole 5 MG Oral Tablet Take 1 Tablet by mouth in the morning. 30 Tab 5 1 Active Polyethylene Glycol 3350 17 GM/SCOOP Oral Powder (Miralax)Indicatio ns:Constipation, unspecified constipation type TAKE 17 GRAMS BY MOUTH DAILY 255 g 5 2 Active CPAP every night at bedtime. Auto 5-20 cm Active Acetaminophen 500 MG Oral Tablet (Tylenol) Take 1-2 tablets by mouth every 6 hours as needed for pain 4 Active [employer] VerLessonwriter Reflect w/Device Kit Use as directed. Use to check blood sugar once daily 1 Kit 01/26/2024 2:41 PM EDT 4 Active TaKaDu In Vitro Strip (Glucose Blood)Indications: Type 2 diabetes mellitus with hemoglobin A1c goal of less than 7.0% ([facility]) Use for testing blood glucose twice a day. E11.9 100 Strip 11 01/26/2024 2:41 PM EDT 4 Active [employer] Delica Lancets 33G Check blood sugar twice daily E 11.9 100 Each 3 01/26/2024 2:41 PM EDT 4 Active Diclofenac Sodium 1 % External Gel (Voltaren)Indicati ons:Arthritis of right wrist,Arthritis of both feet,Pain in both feet Apply 2 g topically to affected area 3 times a day as needed for Pain. Apply to wrists or feet. 350 g 3 4 Active Atorvastatin Calcium 80 MG Oral Tablet (Lipitor)Indicatio ns:Hyperlipidemia with target LDL less than 70 TAKE 1 TABLET BY MOUTH IN THE MORNING 90 Tablet 3 5 Active Omeprazole 40 MG Oral Capsule Delayed Release (PriLOSEC)Indicati ons:Gastroesophage al reflux disease without esophagitis TAKE 1 CAPSULE BY MOUTH IN THE MORNING 1 HOUR BEFORE THE FIRST MEAL OF THE DAY 90 Capsule 1 5 Active Arnuity Ellipta 100 MCG/ACT Inhalation Aerosol Powder Breath Activated (fluticasone Furoate)Indication s:Mild persistent asthma without complication INHALE 1 PUFF BY MOUTH IN THE MORNING 90 Each 1 5 Active Albuterol Sulfate HFA 108 (90 Base) MCG/ACT Inhalation Aerosol SolutionIndication s:Dry cough INHALE 2 PUFFS BY MOUTH EVERY 4 HOURS NEEDED FOR COUGH, SHORTNESS OF BREATH OR WHEEZING 18 g 3 5 Active Mounjaro 5 MG/0.5ML Subcutaneous Solution Auto-injector (Tirzepatide) Inject 5 mg under the skin once a week. 2 mL 5 01/06/2025 11:49 AM EDT 5 Active Jardiance 25 MG Oral Tablet (Empagliflozin)Ind ications:Type 2 diabetes mellitus with hemoglobin A1c goal of less than 7.0% ([facility]) TAKE 1 TABLET BY MOUTH IN THE MORNING 90 Tablet 3 5 Active Vitamin D3 1.25 MG (72090 UT) Oral Capsule Take 1 Capsule by mouth in the morning. Active Ondansetron 4 MG Oral Tablet Disintegrating (Zofran)Indication s:Nausea Place 1 Tablet on tongue every 8 hours as needed for Nausea. dissolve on tongue. 20 Tablet 5 5 Active Fluticasone Propionate 50 MCG/ACT Nasal SuspensionIndicati ons:Dysfunction of both eustachian tubes Administer 2 Sprays into each nostril in the morning. 1 Each 5 5 Active Triamcinolone Acetonide 0.1 % External Cream (Aristocort)Indica tions:Eczema, unspecified type Apply topically to affected area 2 times a day. To affected area. 15 g 1 5 Active Docusate Sodium 100 MG Oral Capsule (Colace) Take 1 Capsule by mouth daily. 5 Active documented as of this encounter (statuses as of 01/19/2025) Active Problems Problem Noted Date Diagnosed Date [...] unspecified 10/15 Coronary artery disease invo [place]ving [place] coronary artery of [place] heart without angina pectoris 11/02/2020 Overview (04/23/2021): [...] as of this encounter (statuses as of 01/19/2025) Resolved Problems Problem Noted Date Diagnosed Date Resolved Date Food insecurity 11/25/2021 06/26/2022 Overview (06/04/2022): Per [facility] Protocol Progress Notes by Katie Ruiz, Real Estate Attorney 11/04/2021 Signed Received referral for positive food insecurity screening, Outreach to patient to confirm results. Pt indicates they are food insecure. Patient currently receiving SNAP benefits: Yes Patient resides in [facility]. Chronic kidney disease, stage 3a 02/26/2021 04/24/2022 [...] as of this encounter (statuses as of 01/19/2025) Immunizations Name Administration Dates Next Due Hepatitis B, 20+ yrs 10/29/2015,04/02/2015,03/05 Pneumococcal Conjugate Vacc, 13 Valent (Prevnar) 12/16/2016 Pneumococcal Conjugate Vacci ne, 20-valent ([id number]) 11/07/2024 Pneumococcal Polysaccharide PPV23 (Pneumovax) 06/29/2007 RSV [...] 1 990 - 2024 Smokeless Tobacco: Never Comments:less than a pack/da y 06/06/22 Alcohol Use Standard Drinks/Week Comments Not [...] 06/23/2023 Does the household have a re gular source of income? 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 Not on file Not on file Not on file documented as of this encounter Plan of Treatment Upcoming Encounters Date Type Department Care Team (Late st Contact Info) Description 04/24/2025 2:00 PM EDT Nurse Only Ancillary 1st Floor, [place] [address] [place] [phone] [place], Nurse Annual Wellness, RN [address] [place] [phone] 07/19/2025 10:45 AM EST Hospital Encounter ENDO [facility], Endoscopy [address], [place] [phone] Montez Mendenhall, DO [address] [place] [address] 07/19/2025 10:45 AM EST - 07/19/2025 11:45 AM EST Surgery [facility], Endoscopy [address], [place] [phone] Montez Mendenhall, DO [address] [place] [address] COLONOSCOPY FLEXIBLE PROXIMAL DIAGNOSTIC 08/22/2025 1:00 PM EST Office Visit Pharmacy, [address] [address] Pharmacist2, [facility] [address] [place] [address] 08/22/2025 1:40 PM EST Office Visit Family [facility], [address] [place] [phone] Delmis Villanueva PA-C [address] [place] [address] 09/26/2025 2:40 PM EST [address] [address] Ester Aguayo MD [address] [place] [phone] Scheduled Procedures Name Priority Associated Diagnoses Date/Ti me COLONOSCOPY FLEXIBLE PROXIMA L DIAGNOSTIC Recall History of colonic polyps Gastroesophageal reflux disease without esophagitis Dysphagia, unspecified type History of esophageal stricture 07/19/2025 10:45 AM EST ESOPHAGOGASTRODUODENOSCOPY ( EGD), FLEXIBLE, TRANSORAL, DIAGNOSTIC Recall History of colonic polyps Gastroesophageal reflux disease without esophagitis Dysphagia, unspecified type History of esophageal stricture 07/19/2025 10:45 AM EST Health Maintenance Due Date Last Done Comments Cologuard 2004 Fecal Occult Blood Test 2004 Sigmoidoscopy 2004 Colonoscopy 12/19/2023 12/18/2020, 12/18/2020 Colorectal Cancer Screening 12/19/2023 COVID-19 Vaccine ( season) 2024 Depression Monitoring 04/19/2025 04/19/2024 Diabetic Foot Exam 04/19/2025 04/19/2024, 0 04/17/2023, 06/06/2022, Additional history exists GFR 06/22/2025 01/06/2025, 04/0 05/2025, 06/27/2024, Additional history exists HbA1c 06/22/2025 01/06/2025, 04/0 05/2025, 06/27/2024, Additional history exists Diabetic Eye Exam 07/04/2025 07/04/2024, , 05/12/2023, Additional history exists Mammogram 08/01/2025 08/01/2024, 07/15, 07/15/2022, Additional history exists Albumin/Creatinine Ratio 08/02/202508/02/2 024, 06/27/2024, 07/02/2023, Additional history exists B-12 12/21/2025 12/21/2024, 06/14, 06/02/2023, Additional history exists CKD HGB USE SMARTSET 21117 12/21/202501/06, 12/21/2024, 06/27/2024, Additional history exists CKD PHOS USE SMARTSET 46923 12/21/2025 04/0 05/2025, 06/02/2023, 05/01/2022, Additional history exists DXA Scan 08/25/2026 08/25/2016 DTap/Tdap Vaccines (3 - Td or Tdap) 04/23/2031 04/23/2021, 11/04/2010 Hepatitis B Vaccine Completed 10/29/2015, 04/02/2015, 03/05/2015 Zoster Vaccines Completed 05/03/2020, 11/15/2019 RETIRED - COLONOSCOPY-EVERY 5 YRS AGES 18-100 Discontinued 12/18/2020, 12/18/2020 Influenza Vaccine (FLU shot) Completed 06/29/2024, 06/08/2023, 06/06/2022, Additional history exists Pneumococcal Vaccine: 50+ Years Completed 11/07/2024, 12/16/2016, 06/29/2007 HPV (Gardasil) Vaccine Aged Out No lo nger eligible based on patient's age to complete this topic MENINGOCOCCAL (MENACTRA/MENVEO) Aged Out No longer eligible based on patient's age to complete this topic Meningitis B Vaccine (Bexsero/Trumemba) Aged Out No longer eligible based on patient's age to complete this topic documented as of this encounter Medical Devices Implanted Type Area Furniture Upholsterer Apprentice Device Identifier Shelf Expiration Date Model / Serial / Lot Suture [place] 5.5 3 - [id number] Implanted:Qty : 1 on 01/31/2015 by Delvis Sheppard MD at OR [facility] Right: Shoulder [employer] *DO NOT USE* 10/15/2019 [id number] / / [id number] documented as of this encounter Procedures Procedure Name Priority Date/Time Associated Diagnosis Comments XR CHEST 2 VIEWS Routine 01/06/2025 CHEMISTRY-OUTSIDE Routine 01/06/2025 documented in this encounter Results * (ABNORMAL) CHEMISTRY-OUTSIDE (01/06/2025) Not all results display below - see scan for full detail SCAN INCLUDES: CBCD, PT INR, PTT, BMP, HA1C, UA OUTSIDE LAB (SEE SCANNED REPORT) CREATININE 1.20 0.6 - 1.2 MG/DL OUTSIDE LAB (SEE SCANNED REPORT) EGFR 50.23 OUTSIDE LA B (SEE SCANNED REPORT) POTASSIUM 4.0 3.5 - 5.1 MMOL/L OUTSIDE LAB (SEE SCANNED REPORT) GLUCOSE 119(A) 70 - 99 MG/DL OUTSIDE LAB (SEE SCANNED REPORT) HOURS FASTING OUTSID E LAB (SEE SCANNED REPORT) TRIGLYCERIDES-OU TSIDE LAB OUTSIDE LAB (SEE SCANNED REPORT) CHOLESTEROL-OUTS RUBEN LAB OUTSIDE LAB (SEE SCANNED REPORT) HDL-OUTSIDE LAB OUTS RUBEN LAB (SEE SCANNED REPORT) CHOL/HDL RATIO-OUTSIDE LAB OUTSIDE LAB (SEE SCANNED REPORT) LDL (CALCULATED)-OUT SIDE LAB OUTSIDE LAB (SEE SCANNED REPORT) LDL (DIRECT MEASURE)-OUTSIDE LAB OUTSIDE LAB (SEE SCANNED REPORT) HEMOGLOBIN, [id number] LAB 6.8(A) 4.5 - 5.6 % OUTSIDE LAB (SEE SCANNED REPORT) PHOSPHORUS-OUTSI DE LAB OUTSIDE LAB (SEE SCANNED REPORT) PTH-OUTSIDE LAB OUTS RUBEN LAB (SEE SCANNED REPORT) MICROALBUMIN RATIO-OUTSIDE LAB OUTSIDE LAB (SEE SCANNED REPORT) PROTEIN, UA-OUTSIDE LAB NEGATIVE NEGATIVE OUTSIDE LAB (SEE SCANNED REPORT) HGB 12.6 12.0 - 16.0 G/DL OUTSIDE LAB (SEE SCANNED REPORT) 01/06/2025 Zion Calle DO LABORATORY Fin al Result OUTSIDE LAB (SEE SCANNED REPORT) * XR CHEST 2 VIEWS (01/06/2025) Anatomical Region Laterality Modality Chest Other 01/06/2025 Zion Calle DO RADIOLOGY (RAD GENE RAL) Final Result documented in this encounter Advance Directives * Full Code (Latest Code Status on File) Date Activated Date Inactivated Comments 07/13/2014 6:45 PM 07/14/2014 7:12 PM This order reflects the patients wishes and were consensually agreed upon. Healthcare Agents on File Name Relationship Healthcare Agent Relationshi p Communication [facility] Health Care Repr esentative (appointed verbally by patient or by statute hierarchy) Care Teams Label Folder Relationship Specialty Start Date End Date Delmis Villanueva PA-C [place] [phone] PCP - General Physician Systems Integration Advisor 06/18/23 documented as of this encounter
--- OUTSIDE RECORDS SUMMARY | 2025-01-27 20:58 | External Medical Summary | Summary of Care ---
Author Name Unknown Organization [facility] Address [address] [place] [address] Phone [phone] Care Team Providers Care Director Cost Name Role Phone Delmis Villanueva PA-C Primary Care Provider [phone] Encounter Details Date Type Department Care Team (Latest Contact Info) Description 01/18/2025 Medication Management [facility] [address] [place] [address] [facility] [place] [address] Referred for management of medication therapy* Allergies Active Allergy Reactions Criticality Noted Date Comments Cortisone Other (Please comment) High 04/27/2014 Had cortisone injection in her R elbow that caused muscle inflammation Other reaction(s): Muscle inflammation near injection site Meloxicam Renal complications High 03/06/2016 Other reaction(s): Caused kidney dysfunction Sertraline Hcl Other (Please comment) 7 Muscle spasms, shaking documented as of this encounter (statuses as of 01/18/2025) Medications BuPROPion HCl ER, SR, 200 MG [...] hours as needed for pain 4 Active [employer] Reflect w/Device Kit Use as directed. Use to check blood sugar once daily 1 Kit 01/26/2024 2:41 PM EDT 4 Active [employer] In Vitro Strip (Glucose Blood)Indications: Type 2 diabetes mellitus with hemoglobin A1c goal of less than 7.0% ([facility]) Use for testing blood glucose twice a day. E11.9 100 Strip 11 01/26/2024 2:41 PM EDT 4 Active Quill Content Delica Lancets 33G Check blood sugar twice [...] hemoglobin A1c goal of less than 7.0% ([facility]) TAKE 1 TABLET BY MOUTH IN THE MORNING 90 Tablet 3 5 Active Vitamin D3 1.25 MG (76062 UT) Oral Capsule Take 1 Capsule by [...] as of this encounter (statuses as of 01/18/2025) Active Problems Problem Noted Date Diagnosed Date [...] unspecified 10/15 Coronary artery disease invo lving [place] coronary artery of [place] heart without angina pectoris 11/02/2020 Overview (04/23/2021): [...] as of this encounter (statuses as of 01/18/2025) Resolved Problems Problem Noted Date Diagnosed Date Resolved Date Food insecurity 11/25/2021 06/26/2022 Overview (06/04/2022): Per [facility] Protocol Progress Notes by Katie Ruiz, Mortgage Loan Specialist 11/04/2021 Signed Received referral for positive food insecurity screening, Outreach to patient to confirm results. Pt indicates they are food insecure. Patient currently receiving SNAP benefits: Yes Patient resides in [facility]. 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 Objective: Review of patient's allergies indicates: Allergen Reactions Cortisone Other (Please comment) Had cortisone injection in her R elbow that caused muscle inflammation Other reaction(s): Muscle inflammation near injection site Meloxicam Renal complications Other reaction(s): Caused kidney dysfunction Zoloft [Sertraline Hcl] Other (Please comment) Muscle spasms, shaking Current Outpatient Medications - WARNING: List may be incomplete due to filtering Medication Sig Dispense Refill Docusate Sodium 100 MG Oral Capsule (Colace) Take 1 Capsule by mouth daily. Fluticasone Propionate 50 MCG/ACT Nasal Suspension Administer 2 Sprays into each nostril in the morning. 1 Each 5 Ondansetron 4 MG Oral Tablet Disintegrating (Zofran) Place 1 Tablet on tongue every 8 hours as needed for Nausea. dissolve on tongue. 20 Tablet 5 Triamcinolone Acetonide 0.1 % External Cream (Aristocort) Apply topically to affected area 2 times a day. To affected area. 15 g 1 Vitamin D3 1.25 MG (63989 UT) Oral Capsule Take 1 Capsule by mouth in the morning. Jardiance 25 MG Oral Tablet (Empagliflozin) TAKE 1 TABLET BY MOUTH IN THE MORNING 90 Tablet 3 Mounjaro 5 MG/0.5ML Subcutaneous Solution Auto-injector (Tirzepatide) Inject 5 mg under the skin once a week. 2 mL 5 Albuterol Sulfate HFA 108 (90 Base) MCG/ACT Inhalation Aerosol Solution INHALE 2 PUFFS BY MOUTH EVERY 4 HOURS NEEDED FOR COUGH, SHORTNESS OF BREATH OR WHEEZING 18 g 3 Arnuity Ellipta 100 MCG/ACT Inhalation Aerosol Powder Breath Activated (fluticasone Furoate) INHALE1 PUFF BY MOUTH IN THE MORNING 90 Each 1 Omeprazole 40 MG Oral Capsule Delayed Release (PriLOSEC) TAKE 1 CAPSULE BY MOUTH IN THE MORNING 1 HOUR BEFORE THE FIRST MEAL OF THE DAY 90 Capsule 1 Atorvastatin Calcium 80 MG Oral Tablet (Lipitor) TAKE 1 TABLET BY MOUTH IN THE MORNING 90 Tablet 3 Diclofenac Sodium 1 % External Gel (Voltaren) Apply 2 g topically to affected area 3 times a day asneeded for Pain. Apply to wrists or feet. 350 g 3 Acetaminophen 500 MG Oral Tablet (Tylenol) Take 1-2 tablets by mouth every 6 hours as needed for pain Polyethylene Glycol 3350 17 GM/SCOOP Oral Powder (Miralax) TAKE 17 GRAMS BY MOUTH DAILY 255 g 5 ARIPiprazole 5 MG Oral Tablet Take 1 Tablet by mouth in the morning. 30 Tab 5 clonazePAM (KLONOPIN) 1 MG Tablet Take 1 Tablet by mouth in the morning and 1 Tablet before bedtime. Escitalopram Oxalate 20 MG Oral Tablet Take 1 Tablet by mouth in the morning. Aspirin 81 MG Tablet Take 1 Tablet by mouth in the morning. BuPROPion HCl ER, SR, 200 MG TB12 Take 1 Tablet by mouth in the morning and 1 Tablet before bedtime. OneTouch Delica Lancets 33G Check blood sugar twice daily E 11.9 100 Each 3 OneTouch Verio In Vitro Strip (Glucose Blood) Use for testing blood glucose twice a day. E11.9 100 Strip 11 OneTouch Verio Reflect w/Device Kit Use as directed. Use to check blood sugar once daily 1 Kit 0 CPAP every night at bedtime. Auto 5-20 cm Immunization History Administered Date(s) Administered Hepatitis B, 20+ yrs 03/05/2015, 04/02/2015, 10/29/2015 Pneumococcal Conjugate Vacc, 13 Valent (Prevnar) 12/16/2016 Pneumococcal Conjugate Vaccine, 20-valent ([id number]) 11/07/2024 Pneumococcal Polysaccharide PPV23 (Pneumovax) 06/29/2007 RSV Vac., Bivalent, Perfusion F, Pf,0.5 Ml (Abrysvo) 06/03/2024 Seasonal Influenza Vac., MDV, IM, 0.5 mL (Fluzone) 07/03/2008, 11/04/2010, 06/16/2011, 05/19/2012, 06/14/2013, 06/09/2014 Seasonal Influenza, PF, 6 M & above, IM , (FluLaval or Fluzone) 09/01/2017, 06/04/2018, 06/14/2019, 05/17/2020, 09/25/2021, 06/06/2022, 06/08/2023 Seasonal Influenza, Quadrivalent, No Preserve, IM 06/28/2015, 07/22/2016 Seasonal Influenza, Trivalent, (IIV3), PF, (Fluzone) 06/29/2024 TD, Preservative Free 04/23/2021 TDAP, Age 7 and older, IM (Adacel) 11/04/2010 Zoster Vaccine Recombinant (Shingrix) 11/15/2019, 05/03/2020 TMR Interventions Incomplete Encounter MTPs No medication therapy recommendations to display Complete Encounter MTPs Migraine, unspecified, not intractable, without status migrainosus 1 Rationale: Patient Education - Needs Education - Safety Recommendation: Provide Education Status: No Longer Relevant Identified Date: 01/18/2025 Completed Date: 01/18/2025 Note: Patient no longer taking opioid. Uncomplicated asthma 1 Current Medication: Albuterol Sulfate HFA 108 (90 Base) MCG/ACT Inhalation Aerosol Solution Current Medication Sig: INHALE 2 PUFFS BY MOUTH EVERY 4 HOURS NEEDED FOR COUGH, SHORTNESS OF BREATH OR WHEEZING Rationale: Patient Education - Needs Education - Safety Recommendation: Provide Education Status: Accepted - no CPA Needed Identified Date: 01/18/2025 Completed Date: 01/18/2025 Note: Discussed appropriate times for use. If symptoms are truly uncontrolled, discuss esclating maintanence therapy. Assessment & Plan Indication, effectiveness, safety and convenience of her medications were reviewed today. The patient's medical conditions were assessed, evaluated, and deemed meeting goals of drug therapy, with thefollowing exceptions. Additional Notes: Patient not currently taking opioid Takeaway Information Who was the recipient of the CMR service: beneficiary Language Template for the Patient Takeaway: Macedonian I attest that I have reviewed and updated the patient's conditions, allergies, and medications to the best of my ability. Socorro Geiger RPh 01/18/2025, 3:49 PM documented in this encounter Miscellaneous Notes * MTM Personal Medication List - Socorro Geiger RPh - 01/18/2025 3:45 PM EDT Medication How I take it Why I use it Prescriber Acetaminophen 500 MG Oral Tablet (Tylenol) Take 1-2 tablets by mouth every 6 hours as needed for pain Pain Self Albuterol Sulfate HFA 108 (90 Base) MCG/ACT Inhalation Aerosol Solution INHALE 2 PUFFS BY MOUTH EVERY 4 HOURS NEEDED FOR COUGH, SHORTNESS OF BREATH OR WHEEZING Dry cough, shortness of breath Teodora Villanueva PA-C ARIPiprazole 5 MG Oral Tablet Take 1 Tablet by mouth in the morning. Mood SUSAN Andrade Arnuity Ellipta 100 MCG/ACT Inhalation Aerosol Powder Breath Activated (fluticasone Furoate) INHALE1 PUFF BY MOUTH IN THE MORNING Asthma Delmis Villanueva PA-C Aspirin 81 MG Tablet Take 1 Tablet by mouth in the morning. Prevents heart attacks, strokes Self Atorvastatin Calcium 80 MG Oral Tablet (Lipitor) TAKE 1 TABLET BY MOUTH IN THE MORNING Hyperlipidemia with target LDL less than 70 Delmis Villanueva PA-C BuPROPion HCl ER, SR, 200 MG TB12 Take 1 Tablet by mouth in the morning and 1 Tablet before bedtime. Mood Remedios SUSAN Francisco clonazePAM (KLONOPIN) 1 MG Tablet Take 1 Tablet by mouth in the morning and 1 Tablet before bedtime. Mood Remedios SUSAN Francisco Diclofenac Sodium 1 % External Gel (Voltaren) Apply 2 g topically to affected area 3 times a day asneeded for Pain. Apply to wrists or feet. Pain Delmis Villanueva PA-C Docusate Sodium 100 MG Oral Capsule (Colace) Take 1 Capsule by mouth daily. Stool softener Self Escitalopram Oxalate 20 MG Oral Tablet Take 1 Tablet by mouth in the morning. Mood SUSAN Andrade Fluticasone Propionate 50 MCG/ACT Nasal Suspension Administer 2 Sprays into each nostril in the morning. Inner ear issues Delmis Villanueva PA-C Jardiance 25 MG Oral Tablet (Empagliflozin) TAKE 1 TABLET BY MOUTH IN THE MORNING Diabetes, kidney protection Ester Aguayo MD Mounjaro 5 MG/0.5ML Subcutaneous Solution Auto-injector (Tirzepatide) Inject 5 mg under the skin once a week. Diabetes Delmis Villanueva PA-C Omeprazole 40 MG Oral Capsule Delayed Release (PriLOSEC) TAKE 1 CAPSULE BY MOUTH IN THE MORNING 1 HOUR BEFORE THE FIRST MEAL OF THE DAY Acid reflux Delmis Villanueva PA-C Ondansetron 4 MG Oral Tablet Disintegrating (Zofran) Place 1 Tablet on tongue every 8 hours as needed for Nausea. dissolve on tongue. Nausea Delmis Villanueva PA-C Polyethylene Glycol 3350 17 GM/SCOOP Oral Powder (Miralax) TAKE 17 GRAMS BY MOUTH DAILY Constipation Self Triamcinolone Acetonide 0.1 % External Cream (Aristocort) Apply topically to affected area 2 times a day. Rash Delmis Villanueva PA-C Vitamin D3 1.25 MG (84059 UT) Oral Capsule Take 1 Capsule by mouth in the morning. Supplement Self * [facility] To-Do-List - Socorro Geiger, formerly [facility] - 01/18/2025 3:37 PM EDT Images from the original note were not included. What we talked about: What I should do: The importance of taking your medication as prescribed Your medicine works best when taken as prescribed. It can be hard to remember to take daily medications. Consider making it a part of your daily routine. Pair taking your medication with something you do every day, like brushing your teeth or eating a meal. Consider setting daily alarms to help remind yourself when it is time to take your medicine. Using a pill box can also help you organize your medicines. Pill boxes allow you to fill each day slot with your daily medicine and help you track when your next dose is due. What we talked about: What I should do: Needs Education Education: If you feel as if you're using your albuterol rescue inhaler on a regular basis, discussincreasing or altering the dose of your maintenance inhaler for more control. What we talked about: What I should do: [facility] You can get a 90 day supply of your prescription medications delivered to your home. You also can be signed up for automatic refills. Typically, patients who switch to mail order save money on their monthly prescriptions. You will have access to a pharmacist to answer any questions about your medications (Thursday- Thursday, 6:30 am to 7 pm). Call [phone] to enroll in mail order services today. What we talked about: What I should do: Tylenol max dose Tylenol can be found in other prescription and over the counter medications. Be mindful of how much Tylenol you taking in 24 hours. The maximum dose of Tylenol is 3,000mg per daily (3 grams). Currently, you take 500mg in each tablet. Try to avoid taking more than 6 tablets in a 24 hour period. What we talked about: What I should do: Arnuity It is important to rinse your mouth after use of your inhaler to avoid thrush. What we talked about: What I should do: Omeprazole Medications like omeprazole work to treat reflux/heartburn by lowering the amount of acid that is made in your stomach. Because most of our vitamins and minerals require the stomach to beacidic in order to absorb, using these medications can actually put us at risk of certain anemias and low bone density (osteoporosis). If there is no specific medical reason that requires you to be on it buttermaker helper, we often suggest slowly working your way off of the medication. If symptoms would return, there are alternative medications like Pepcid (famotidine) that are safer to use buttermaker helper instead. documented in this encounter Plan of Treatment Upcoming Encounters Date Type Department Care Team (Late st Contact Info) Description 04/24/2025 2:00 PM EDT Nurse Only Ancillary 1st Floor, [address] [place] [phone] [place], Nurse Annual Wellness, RN [address] [facility] [place] [address] 07/19/2025 10:45 AM EST Hospital Encounter [facility]O [facility], [address] [phone] Montez Mendenhall, DO [address] [place] [address] 07/19/2025 10:45 AM EST - 07/19/2025 11:45 AM EST Surgery [facility], Endoscopy [address] [place] [address] Montez Mendenhall, DO [address] [place] [address] COLONOSCOPY FLEXIBLE PROXIMAL DIAGNOSTIC 08/22/2025 1:00 PM EST Office Visit Pharmacy, [address] [place] [address] Pharmacist2, [facility] [address] [place] [address] 08/22/2025 1:40 PM EST [facility] Visit [facility], [place] [address] [place] [phone] Delmis Villanueva PA-C 21 [place] [address] 09/26/2025 2:40 PM EST Office Visit Nephrology, [facility] [address] [facility] [place], [place] [phone] Ester Aguayo MD [address] [place] [address] [place], [place] [phone] Scheduled Procedures Name Priority Associated Diagnoses Date/Ti [...] 04/17/2023, 06/06/2022, Additional history exists GFR 06/22/2025 12/21/2024, 06/14, 12/02/2023, Additional history exists HbA1c 06/22/2025 12/21/2024, 06/14, 12/02/2023, Additional history exists Diabetic Eye Exam 07/04/2025 07/04/2024, , 05/12/2023, Additional history exists Mammogram 08/01/2025 08/01/2024, 07/15, 07/15/2022, Additional history exists Albumin/Creatinine Ratio 08/02/2025 024, 06/27/2024, 07/02/2023, Additional history exists B-12 12/21/2025 12/21/2024, 06/14, 06/02/2023, Additional history exists CKD HGB USE SMARTSET 64024 12/21/202512/21, 06/27/2024, 11/13/2023, Additional history exists CKD PHOS USE SMARTSET 91169 12/21/2025 04/0 05/2025, 06/02/2023, 05/01/2022, Additional history [...] this encounter Medical Devices Implanted Type Area Licensed Club Manager Device Identifier Shelf Expiration Date Model / Serial / Lot Suture [place] 5.5 3 - [id number] Implanted:Qty : 1 on 01/31/2015 by Delvis Sheppard MD at OR [facility] Right: Shoulder [employer]HE[employer] *DO NOT USE* 10/15/2019 [id number] / / [id number] documented as of this encounter Visit Diagnoses Diagnosis Referred for management of medication therapy- Primary Encounter for long-term (current) use of other medications History of colonic polyps Personal history of [...] Relationship Healthcare Agent Relationshi p Communication Madalyn [facility] Repr esentative (appointed verbally by patient or by statute hierarchy) Care Teams Director Cost Relationship Specialty Start Date End Date Delmis Villanueva PA-C [address] [place] [phone] PCP - General Physician Brick Washer 06/18/23 documented as of this encounter
--- OUTSIDE RECORDS SUMMARY | 2025-01-27 20:58 | External Medical Summary | Summary of Care ---
Author Name Unknown Organization [facility] Address [address] [place] [address] Phone [phone] Care Team Providers Care Information Technology Administrator Name Role Phone Delmis Villanueva PA-C Primary Care Provider [phone] Encounter Details Date Type Department Care Team (Late st Contact Info) Description 01/06/2025 Result Scan Unspecified Department <No scans attached> Allergies Active Allergy Reactions Criticality Noted Date [...] hours as needed for pain 4 Active Streamup [email or web address] Reflect w/Device Kit Use as directed. Use to check blood sugar once daily 1 Kit 01/26/2024 2:41 PM EDT 4 Active Xyo In Vitro Strip (Glucose Blood)Indications :Type 2 diabetes mellitus with hemoglobin A1c goal of less than 7.0% ([facility]) Use for testing blood glucose twice a day. E11.9 100 Strip 11 01/26/2024 2:41 PM EDT 4 Active Streamup [employer]ICATIONS INF[employer]STRU[employer]URE [employer] Lancets 33G Check blood sugar twice daily [...] 5 01/06/2025 11:49 AM EDT 5 Active documented as of this encounter [...] features 11/02/2020 Overview (04/23/2021): 04/23/2021: following with [facility] psychiatry Post-traumatic stress disorder, unspecified 10/15 Coronary artery disease invo lving [place] coronary artery of [place] heart without angina pectoris 11/02/2020 Overview (04/23/2021): [...] Pharmacy Protocol Progress Notes by Katie Ruiz, Truss Puller Helper 11/04/2021 Signed Received referral for positive food insecurity screening, Outreach to patient to confirm results. Pt indicates they are food insecure. Patient currently receiving SNAP benefits: Yes Patient resides in [facility]. 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 Not on file Not on file documented as of this encounter Plan of Treatment Upcoming Encounters Date Type Department Care Team (Late st Contact Info) Description 04/24/2025 2:00 PM EDT Nurse Only Ancillary 1st Floor, [place] [address] [place] [phone] [place], Nurse Annual Wellness, RN [address] [place] [phone] 07/19/2025 10:45 AM EST Hospital Encounter ENDO [facility], [address]oscopy [address] [phone] Montez Mendenhall, DO [address] [place] [address] 07/19/2025 10:45 AM EST - 07/19/2025 11:45 AM EST Surgery [facility], Endoscopy [address] [place] [address] Montez Mendenhall, DO [address] [place] [address] COLONOSCOPY FLEXIBLE PROXIMAL DIAGNOSTIC 08/22/2025 1:00 PM EST Office Visit Pharmacy, [place] [address] [place] [phone] Pharmacist2, [facility] [place] [address] 08/22/2025 1:40 PM EST Office Visit Family Practice, [place] [address] [place] [phone] Delmis Villanueva PA-C 21 [facility] [address] 09/26/2025 2:40 PM EST Office Visit Nephrology, [address] [place] [address] Ester Aguayo MD [address] [place] [phone] Scheduled Procedures Name Priority Associated Diagnoses Date/Ti [...] Additional history exists CKD HGB USE SMARTSET 88233 12/21/202501/06, 12/21/2024, 06/27/2024, Additional history exists CKD PHOS USE SMARTSET 37992 12/21/2025 04/0 05/2025, 06/02/2023, 05/01/2022, Additional history [...] this encounter Medical Devices Implanted Type Area Pearl Fisherman Device Identifier Shelf Expiration Date Model / Serial / Lot Suture [place] 5.5 3 - [id number] Implanted:Qty : 1 on 01/31/2015 by Delvis Sheppard MD at OR [facility] Right: Shoulder [employer] *DO NOT USE* 10/15/2019 [id number] / / [id number] documented as of this encounter Procedures Procedure Name Priority Date/Time Associated Diagnosis Comments EKG SCANNED RESULT 01/06/2025 documented in this encounter Results * EKG SCANNED RESULT (01/06/2025) 01/06/2025 No Physician Data Unknown EKG Final Result documented in this encounter Advance Directives * Full Code (Latest Code Status on File) Date Activated Date Inactivated Comments 07/13/2014 6:45 PM 07/14/2014 7:12 PM This order reflects the patients wishes and were consensually agreed upon. Healthcare Agents on File Name Relationship Healthcare Agent Relationshi p Communication Madalyn [facility] Repr esentative (appointed verbally by patient or by statute hierarchy) Care Teams Information Technology Administrator Relationship Specialty Start Date End Date Delmis Villanueva PA-C [address] [place] [phone] PCP - General Physician Magazine Journalist 06/18/23 documented as of this encounter
--- OUTSIDE RECORDS SUMMARY | 2025-01-27 20:59 | External Medical Summary | Summary of Care ---
Author Name Unknown Organization [facility] Address [address] [place] [address] Phone [phone] Care Team Providers Care Payroll Accounting Specialist Name Role Phone Delmis Villanueva PA-C Primary Care Provider [phone] Reason for Visit * Reason Comments eRx-Medication Refill Encounter Details Date Type Department Care Team (Late st Contact Info) Description 01/13/2025 Refill Nephrology, [address] [address] Roxie Aguayo MD [address] [place] [id number] Type 2 diabetes mellitus with hemoglobin A1c goal of less than 7.0% ([facility]) Allergies Active Allergy Reactions Criticality Noted Date Comments Cortisone Other (Please comment) High 04/27/2014 Had cortisone injection in her R elbow that caused muscle inflammation Other reaction(s): Muscle inflammation near injection site Meloxicam Renal complications High 03/06/2016 Other reaction(s): Caused kidney dysfunction Sertraline Hcl Other (Please comment) 7 Muscle spasms, shaking documented as of this encounter (statuses as of 01/17/2025) Medications BuPROPion HCl ER, SR, 200 MG TB12 Take 1 Tablet by mouth in the morning and 1 Tablet before bedtime. 07/02/20 16 Active Aspirin 81 MG Tablet Take 1 Tablet by mouth in the morning. Active Escitalopram Oxalate 20 MG Oral Tablet Take 1 Tablet by mouth in the morning. 12/05/19 17 Active clonazePAM (KLONOPIN) 1 MG Tablet Take 1 Tablet by mouth in the morning and 1 Tablet before bedtime. 08/26/20 18 Active ARIPiprazole 5 MG Oral Tablet Take 1 Tablet by mouth in the morning. 30 Tab 5 11/02/19 21 Active Polyethylene Glycol 3350 17 GM/SCOOP Oral Powder (Miralax)Indicati ons:Constipation, unspecified constipation type TAKE 17 GRAMS BY MOUTH DAILY 255 g 5 06/06/20 22 Active CPAP every night at bedtime. Auto 5-20 cm Active Fluticasone Propionate 50 MCG/ACT Nasal SuspensionIndicat ions:Dysfunction of both eustachian tubes Administer 2 Sprays into each nostril in the morning. 1 Each 5 11/03/19 23 Active Acetaminophen 500 MG Oral Tablet (Tylenol) Take 1-2 tablets by mouth every 6 hours as needed for pain 12/07/19 24 Active Ondansetron 4 MG Oral Tablet Disintegrating (Zofran)Indicatio ns:Nausea Place 1 Tablet on tongue every 8 hours as needed for Nausea. dissolve on tongue. 20 Tablet 5 12/28/19 24 Active Finisar Reflect w/Device Kit Use as directed. Use to check blood sugar once daily 1 Kit 4 2:41 PM EDT 01/25/20 24 Active Finisar In Vitro Strip (Glucose Blood)Indications :Type 2 diabetes mellitus with hemoglobin A1c goal of less than 7.0% ([facility]) Use for testing blood glucose twice a day. E11.9 100 Strip 11 4 2:41 PM EDT 01/25/20 24 Active Izooble Del[employer] Lancets 33G Check blood sugar twice daily E 11.9 100 Each 3 4 2:41 PM EDT 01/25/20 24 Active traZODone HCl 50 MG Oral Tablet (Desyrel) Take 1 Tablet by mouth at bedtime. Active Diclofenac Sodium 1 % External Gel (Voltaren)Indicat ions:Arthritis of right wrist,Arthritis of both feet,Pain in both feet Apply 2 g topically to affected area 3 times a day as needed for Pain. Apply to wrists or feet. 350 g 3 10/16/20 24 Active Triamcinolone Acetonide 0.1 % External Cream (Aristocort)Indic ations:Eczema, unspecified type Apply topically to affected area 2 times a day. To affected area. 15 g 1 06/29/20 24 Active Baclofen 10 MG Oral Tablet (Lioresal)Indicat ions:Muscle cramps Take 0.5-1 Tablets by mouth 2 times a day as needed for Muscle spasms. 60 Tablet 06/29/20 24 Active Atorvastatin Calcium 80 MG Oral Tablet (Lipitor)Indicati ons:Hyperlipidemi a with target LDL less than 70 TAKE 1 TABLET BY MOUTH IN THE MORNING 90 Tablet 3 09/21/19 25 Active Omeprazole 40 MG Oral Capsule Delayed Release (PriLOSEC)Indicat ions:Gastroesopha geal reflux disease without esophagitis TAKE 1 CAPSULE BY MOUTH IN THE MORNING 1 HOUR BEFORE THE FIRST MEAL OF THE DAY 90 Capsule 1 11/28/19 25 Active Arnuity Ellipta 100 MCG/ACT Inhalation Aerosol Powder Breath Activated (fluticasone Furoate)Indicatio ns:Mild persistent asthma without complication INHALE 1 PUFF BY MOUTH IN THE MORNING 90 Each 1 12/03/19 25 Active Albuterol Sulfate HFA 108 (90 Base) MCG/ACT Inhalation Aerosol SolutionIndicatio ns:Dry cough INHALE 2 PUFFS BY MOUTH EVERY 4 HOURS NEEDED FOR COUGH, SHORTNESS OF BREATH OR WHEEZING 18 g 3 12/15/19 25 Active Mounjaro 5 MG/0.5ML Subcutaneous Solution Auto-injector (Tirzepatide) Inject 5 mg under the skin once a week. 2 mL 5 5 11:49 AM EDT 01/03/20 25 Active Jardiance 25 MG Oral Tablet (Empagliflozin)In dications:Type 2 diabetes mellitus with hemoglobin A1c goal of less than 7.0% (HCC) TAKE 1 TABLET BY MOUTH IN THE MORNING 90 Tablet 3 01/17/20 25 Active Empagliflozin 25 MG Oral Tablet (Jardiance)Indica tions:Type 2 diabetes mellitus with hemoglobin A1c goal of less than 7.0% (HCC) Take 1 Tablet by mouth in the morning. In the morning.. 90 Tablet 3 02/03/20 24 2024 Discontinued documented as of this encounter (statuses as of 01/17/2025) Active Problems Problem Noted Date Diagnosed Date [...] unspecified 10/15 Coronary artery disease invo lving [place] coronary artery of [place] heart without angina pectoris 11/02/2020 Overview (04/23/2021): [...] as of this encounter (statuses as of 01/17/2025) Resolved Problems Problem Noted Date Diagnosed Date Resolved Date Food insecurity 11/25/2021 06/26/2022 Overview (06/04/2022): Per [facility] Protocol Progress Notes by Katie Ruiz, Plastic Straightening Roll Operator 11/04/2021 Signed Received referral for positive food [...] as of this encounter (statuses as of 01/17/2025) Immunizations Name Administration Dates Next Due Hepatitis B, 20+ yrs 10/29/2015,04/02/2015,03/05 Pneumococcal Conjugate Vacc, 13 Valent (Prevnar) 12/16/2016 Pneumococcal Polysaccharide PPV23 (Pneumovax) 06/29/2007 RSV Vac., [...] 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 Not on file Not on file documented as of this encounter Miscellaneous Notes * Telephone Encounter - Roxie Aguayo MD - 01/16/2025 3:59 PM EDTSigned Prescriptions: Disp Refills Jardiance 25 MG Oral Tablet (Empagliflozin)90 Tab*3 Sig: TAKE 1 TABLET BY MOUTH IN THE MORNING Authorizing Provider: ROXIE AGUAYO * Telephone Encounter - Sagar Mensah [facility] - 01/13/2025 4:01 PM EDTPending Prescriptions: Disp Refills Jardiance 25 MG Oral Tablet (Empagliflozin)90 Tab*3 Sig: TAKE 1TABLET BY MOUTH IN THE MORNING documented in this encounter Plan of Treatment Upcoming Encounters Date Type Department Care Team (Late st Contact Info) Description 01/17/2025 1:00 PM EDT Office Visit Family [facility], [place] [phone] Delmis Villanueva PA-C [address] [place] [address] 01/18/2025 3:00 PM EDT [place], [place] [address] Pharmacist2, [facility] [place] [address] 01/18/2025 3:30 PM EDT Pharmacy Pharmacy, [address] [place] [address] Pharmacist2, [facility] [address] [address] 01/18/2025 3:40 PM EDT Office [address] Practice, [address] [phone] Delmis Villanueva PA-C [address] [facility] [place] [address] 04/24/2025 2:00 PM EDT Nurse Only Ancillary 1st Floor, [address] [place] [address] [place], Nurse Annual Wellness, RN [address] [facility] [place] [address] 09/26/2025 2:40 PM EST Office Visit Nephrology, [facility] [address], [place] [phone] Roxie Aguayo MD [address] [place] [address] Scheduled Procedures Name Priority Associated Diagnoses Date/Ti me COLONOSCOPY FLEXIBLE PROXIMA L DIAGNOSTIC Recall History of colonic polyps Health Maintenance Due Date Last Done Comments Cologuard 2004 Fecal Occult Blood Test 2004 Sigmoidoscopy 2004 Pneumococcal Vaccine: 50+ Years (3 of 3 - PCV20 or PCV21) 12/16/2021 12/16/2016, 06/29/2007 COVID-19 Vaccine ( season) 2024 Depression Monitoring 04/19/2025 04/19/2024 Diabetic Foot Exam 04/19/2025 04/19/2024, 0 04/17/2023, 06/06/2022, Additional history exists GFR 06/22/2025 12/21/2024, 06/14, 12/02/2023, Additional history exists HbA1c 06/22/2025 12/21/2024, 06/14, 12/02/2023, Additional history exists Diabetic Eye Exam 07/04/2025 07/04/2024, , 05/12/2023, Additional history exists Mammogram 08/01/2025 08/01/2024, 07/15, 07/15/2022, Additional history exists Albumin/Creatinine Ratio 08/02/2025 024, 06/27/2024, 07/02/2023, Additional history exists Colonoscopy 12/18/2025 12/18/2020, 12/18/2020 Colorectal Cancer Screening 12/18/2025 B-12 12/21/2025 12/21/2024, 06/14, 06/02/2023, Additional history exists CKD HGB USE SMARTSET 31805 12/21/202512/21, 06/27/2024, 11/13/2023, Additional history exists CKD PHOS USE SMARTSET 97116 12/21/2025 04/0 05/2025, 06/02/2023, 05/01/2022, Additional history exists DXA Scan 08/25/2026 08/25/2016 DTap/Tdap Vaccines (3 - Td or Tdap) 04/23/2031 04/23/2021, 11/04/2010 Hepatitis B Vaccine Completed 10/29/2015, 04/02/2015, 03/05/2015 Zoster Vaccines Completed 05/03/2020, 11/15/2019 RETIRED - COLONOSCOPY-EVERY 5 YRS AGES 18-100 Discontinued 12/18/2020, 12/18/2020 Influenza Vaccine (FLU shot) Completed 06/29/2024, 06/08/2023, 06/06/2022, Additional history exists HPV (Gardasil) Vaccine Aged Out No lo nger eligible based on patient's age to complete this topic MENINGOCOCCAL (MENACTRA/MENVEO) Aged Out No longer eligible based on patient's age to complete this topic Meningitis B Vaccine (Bexsero/Trumemba) Aged Out No longer eligible based on patient's age to complete this topic documented as of this encounter Medical Devices Implanted Type Area Wood Machine Carver Device Identifier Shelf Expiration Date Model / Serial / Lot Suture [place] 5.5 3 - [id number] Implanted:Qty : 1 on 01/31/2015 by Delvis Sheppard MD at OR [facility] Right: Shoulder [employer] *DO NOT USE* 10/15/2019 [id number] / / [id number] documented as of this encounter Visit Diagnoses Diagnosis Type 2 diabetes mellitus with hemoglobin A1c goal of less than 7.0% (HCC) documented in this encounter Advance Directives * Full Code (Latest Code Status on File) Date Activated Date Inactivated Comments 07/13/2014 6:45 PM 07/14/2014 7:12 PM This order reflects the patients wishes and were consensually agreed upon. Healthcare Agents on File Name Relationship Healthcare Agent Relationshi p Communication [facility] Repr esentative (appointed verbally by patient or by statute hierarchy) Care Teams Payroll Accounting Specialist Relationship Specialty Start Date End Date Delmis Villanueva PA-C [address] [address] [phone] PCP - General Physician Director Operations 06/18/23 documented as of this encounter
--- OUTSIDE RECORDS SUMMARY | 2025-01-27 20:59 | External Medical Summary | Summary of Care ---
Author Name Unknown Organization [facility] Address [address] [place] [address] Phone [phone] Care Team Providers Care Manual Equipment Mechanic Name Role Phone Delmis Villanueva PA-C Primary Care Provider [phone] Reason for Visit * Reason Comments Medication Discussion Encounter Details Date Type Department Care Team ([facility] Contact Info) Description 01/18/2025 3:30 PM EDT Pharmacy Pharmacy, [address] [place] [address] Pharmacist2, [address] [place] [address] Encounter for medication review* Allergies Active Allergy Reactions Criticality Noted Date [...] as needed for pain 12/07/19 24 Active eventblimp Reflect w/Device Kit Use as directed. Use to check blood sugar once daily 1 Kit 4 2:41 PM EDT 01/25/20 24 Active eventblimp In Vitro Strip (Glucose Blood)Indications: Type 2 diabetes mellitus with hemoglobin A1c goal of less than 7.0% ([facility]) Use for testing blood glucose twice a day. E11.9 100 Strip 11 4 2:41 PM EDT 01/25/20 24 Active [employer] Lancets 33G Check blood sugar twice daily E 11.9 100 Each 3 4 2:41 PM EDT 01/25/20 24 Active Diclofenac Sodium 1 % External Gel (Voltaren)Indicati ons:Arthritis of right wrist,Arthritis of both feet,Pain in both feet Apply 2 g topically to affected area 3 times a day as needed for Pain. Apply to wrists or feet. 350 g 3 06/29/20 24 Active Atorvastatin Calcium 80 MG [...] 25 Active Jardiance 25 MG Oral Tablet (Empagliflozin)Ind ications:Type 2 diabetes mellitus with hemoglobin A1c goal of less than 7.0% ([facility]) TAKE 1 TABLET BY MOUTH IN THE MORNING 90 Tablet 3 01/17/20 25 Active Vitamin D3 1.25 MG (52846 UT) Oral Capsule Take 1 Capsule by mouth in the morning. Active Ondansetron 4 MG Oral Tablet Disintegrating (Zofran)Indication s:Nausea Place 1 Tablet on tongue every 8 hours as needed for Nausea. dissolve on tongue. 20 Tablet 5 01/18/20 25 Active Fluticasone Propionate 50 MCG/ACT Nasal SuspensionIndicati ons:Dysfunction of both eustachian tubes Administer 2 Sprays into each nostril in the morning. 1 Each 5 01/18/20 25 Active Triamcinolone Acetonide 0.1 % External Cream (Aristocort)Indica tions:Eczema, unspecified type Apply topically to affected area 2 times a day. To affected area. 15 g 1 01/18/20 25 Active Docusate Sodium 100 MG Oral Capsule (Colace) Take 1 Capsule by mouth daily. 01/19/20 25 Active traZODone HCl 50 MG Oral Tablet (Desyrel) Take 1 Tablet by mouth at bedtime. 025 Discontin ued(Patie nt preferenc e/discont inuation) documented as of this encounter (statuses as [...] unspecified 10/15 Coronary artery disease invo lving [place] coronary artery of [place] heart without angina pectoris 11/02/2020 Overview (04/23/2021): [...] Pharmacy Protocol Progress Notes by Katie Ruiz, Director Of Provider Relations 11/04/2021 Signed Received referral for positive food insecurity screening, Outreach to patient to confirm results. Pt indicates they are food insecure. Patient currently receiving SNAP benefits: Yes [facility]. 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 Socorro Geiger RPH Clinical Pharmacist 01/18/2025, 3:20 PM documented in this encounter Plan of Treatment Upcoming Encounters Date Type Department Care Team (Late st Contact Info) Description 04/24/2025 2:00 PM EDT Nurse Only Ancillary 1st Floor, [place] [address] [address] [address] [place], Nurse Annual Wellness, RN [address] [place] [address] 07/19/2025 10:45 AM EST Hospital Encounter ENDO [facility], Endoscopy [address] [place] [phone] Montez Mendenhall, DO [address] [place] [address] 07/19/2025 10:45 AM EST - 07/19/2025 11:45 AM EST Surgery ENDO [facility], Endoscopy [address] [place] [phone] Montez Mendenhall, DO [address] [place] [address] COLONOSCOPY FLEXIBLE PROXIMAL DIAGNOSTIC 08/22/2025 1:00 PM EST Office Visit Pharmacy, [place] [address] [address] [address] Pharmacist2, [facility] [place] [address] [place] [address] 08/22/2025 1:40 PM EST Office Visit Family [facility], [place] [address] [place] [address] [phone] Delmis Villanueva PA-C [address] [place] [address] 09/26/2025 2:40 PM EST Office Visit Nephrology, [address] [place] [address] Ester Aguayo MD [address] [place] [address] [place] [address] Scheduled Procedures Name Priority Associated Diagnoses Date/Ti [...] Additional history exists CKD HGB USE SMARTSET 36567 12/21/202512/21, 06/27/2024, 11/13/2023, Additional history exists CKD PHOS USE SMARTSET 01592 12/21/2025 04/0 05/2025, 06/02/2023, 05/01/2022, Additional history [...] this encounter Medical Devices Implanted Type Area Tattooer Device Identifier Shelf Expiration Date Model / Serial / Lot Suture [place] 5.5 3 - [id number] Implanted:Qty : 1 on 01/31/2015 by Delvis Sheppard MD at OR [facility] Right: Shoulder [employer] *DO NOT USE* 10/15/2019 [id number] / / [id number] documented as of this encounter Visit Diagnoses Diagnosis Encounter for medication review- Primary Encounter for long-term (current) use of [...] Relationship Healthcare Agent Relationshi p Communication Madalyn Bolaños Adult Child [facility] Care Repr esentative (appointed verbally by patient or by statute hierarchy) Care Teams Manual Equipment Mechanic Relationship Specialty Start Date End Date Delmis Villanueva PA-C [address] [place] [address] [address] PCP - General Physician Integrated Logistics Support Manager 06/18/23 documented as of this encounter
--- OUTSIDE RECORDS SUMMARY | 2025-01-27 20:59 | External Medical Summary | Summary of Care ---
Author Name Unknown Organization [facility] Address [address] [place] [address] Phone [phone] Care Team Providers Care Oncology Social Worker Name Role Phone Delmis Villanueva PA-C Primary Care Provider [phone] Reason for Visit * Reason Comments Dosage Adjustment In Person (Anticoag Cl inic) Diabetes Follow-Up Encounter Details Date Type Department Care Team ([facility] Contact Info) Description 01/18/2025 3:00 PM EDT [address], [address] [address] Pharmacist2, [facility] [place] [address] [place] [id number] Type 2 diabetes mellitus with hemoglobin A1c goal of less than 7.0% ([facility])* Allergies Active Allergy Reactions Criticality Noted Date [...] as needed for pain 12/07/19 24 Active Nuenz Reflect w/Device Kit Use as directed. Use to check blood sugar once daily 1 Kit 4 2:41 PM EDT 01/25/20 24 Active Nuenz In Vitro Strip (Glucose Blood)Indications: Type 2 diabetes mellitus with hemoglobin A1c goal of less than 7.0% ([facility]) Use for testing blood glucose twice a day. E11.9 100 Strip 11 4 2:41 PM EDT 01/25/20 24 Active [employer] Lancets 33G Check blood sugar twice daily [...] Active Atorvastatin Calcium 80 MG Oral Tablet (Lipitor)Alkao ns:Hyperlipidemia with target LDL less than 70 [...] hemoglobin A1c goal of less than 7.0% ([facility]) TAKE 1 TABLET BY MOUTH IN THE MORNING 90 Tablet 3 01/17/20 25 Active Vitamin D3 1.25 MG (80687 UT) Oral Capsule Take 1 Capsule by [...] area. 15 g 1 01/18/20 25 Active traZODone HCl 50 MG Oral [...] features 11/02/2020 Overview (04/23/2021): 04/23/2021: following with [facility] Post-traumatic stress disorder, unspecified 10/15 Coronary artery disease invo lving [place] coronary artery of [place] heart without angina pectoris 11/02/2020 Overview (04/23/2021): [...] Pharmacy Protocol Progress Notes by Katie Ruiz, Dive Superintendent 11/04/2021 Signed Received referral for positive food insecurity screening, Outreach to patient to confirm results. Pt indicates they are food insecure. Patient currently receiving SNAP benefits: Yes Patient resides in [facility]. 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 Patient presents for return diabetic visit. DIABETES: Current diabetic medications: Jardiance 25mg daily Mounjaro 5mg weekly Intolerance to Ozempic (even doses of 0.25mg) Medication Injection Site: Abdomen Lifestyle: Diet: unchanged Glucose Review/SMBG: Patient feels its higher in AM Hypoglycemia: Does your blood sugar go below 70 mg/dL? No Hyperglycemia symptoms present: none Recent Labs Units 12/21/24 1312 06/27/24 1359 12/02/23 1109 HEMOGLOBIN A1C - [facility] % 7.1* 7.7* 8.6* Recent Labs Units 12/21/24 1312 06/27/24 1359 12/02/23 1109 ESTIMATED GLOMERULAR FILTRATION RATE - [facility] mL/min 41* 39* 40* CREATININE - [facility] mg/dL 1.4* 1.5* 1.5* HYPERTENSION: Patient on ACEi/ARB: no BP Readings from Last 3 Encounters: 01/17/25 119/79 12/28/24 111/41 11/19/24 109/67 Blood pressure at goal: yes HYPERLIPIDEMIA: Recent Labs Units 12/21/24 1312 06/27/24 1359 06/02/23 1049 LDL CHOLESTEROL (CALCULATED) - [facility] mg/dL 69 69 66 Does patient have clinical ASCVD? No, is patient LDL less than 70mg/dL? Yes HEALTH MAINTENANCE REVIEW: Health Maintenance Due Topic Date Due Colorectal Cancer Screening 12/19/2023 COVID-19 Vaccine ( season) Never done ASSESSMENT & PLAN: ICD-10-CM 1. Type 2 diabetes mellitus with hemoglobin A1c goal of less than 7.0% ([facility]) E11.9 BG Readings - Blood sugars not available. A1C recently drawn is only slightly above goal and improved from last visit. Patient's BMI is right at 25, so prefer not to push Mounjaro any higher if not absolutely necessary. Beyond that, poorly tolerated initiation dose of Ozempic. Do not want to risk an intolerance to Mounjaro as well. Continue regimen for now. Medications - Reviewed current regimen, patient is adherent to regimen. Patient was on a round of prednisone at one point. Diet, Exercise, Lifestyle - No significant lifestyle changes since last visit. Patient is agreeable to SMBG 1 time(s) daily. Patient aware to contact clinic if any hypoglycemia before next visit. MEDICATION CHANGES: no change Diabetic Medications: Jardiance 25mg daily Mounjaro 5mg weekly Intolerance to Ozempic (even doses of 0.25mg) Metformin: GIAN stopped due to GFR < 30 (past notes from MD almost imply metformin was the cause) HEALTH MAINTENANCE INTERVENTIONS: Labs: Up to Date Immunizations: Up to Date Foot Exam: Up to Date Eye Exam: Up to Date Annual Wellness Visit: N/A FOLLOW UP: Return to clinic in 6 months 01/18/2025 I spent a total of 20-29 minutes (exact time 20 mins) on the date of service in preparation, delivery, and documentation of the care provided to Kiley Bolaños excluding any time spent in the performance of separately billed services. Socorro Geiger [facility] Clinical Pharmacist - Hide Splitter Medication Therapy Management Clinic 01/18/2025, 2:43 PM documented in this encounter Plan of Treatment Upcoming Encounters Date Type Department Care Team (Late st Contact Info) Description 04/24/2025 2:00 PM EDT Nurse Only Ancillary 1st Floor, [place] [address] [id number] Nurse Nahun Annual Wellness, RN [address] [place] [phone] 07/19/2025 10:45 AM EST Hospital Encounter ENDO [facility], [address] [phone] Montez Mendenhall, DO [address] [place] [address] 07/19/2025 10:45 AM EST - 07/19/2025 11:45 AM EST Surgery ENDO [facility], Endoscopy [address] [phone] Montez Mendenhall, DO [address] [address] COLONOSCOPY FLEXIBLE PROXIMAL DIAGNOSTIC 08/22/2025 1:00 PM EST Office Visit Pharmacy, [place] [address] [facility] [place] [address] Pharmacist2, [facility] [address] [place] [phone] 08/22/2025 1:40 PM EST Office Visit Family [facility], [address] [place] [phone] Delmis Villanueva PA-C [address] [facility] [place] [address] 09/26/2025 2:40 PM EST Office Visit Nephrology, [facility] [address] [place] [address] Ester Aguayo MD [address] [facility] [address] Scheduled Procedures Name Priority Associated Diagnoses Date/Ti [...] Additional history exists CKD HGB USE SMARTSET 34550 12/21/202512/21, 06/27/2024, 11/13/2023, Additional history exists CKD PHOS USE SMARTSET 81084 12/21/2025 04/0 05/2025, 06/02/2023, 05/01/2022, Additional history [...] this encounter Medical Devices Implanted Type Area Barn Worker Device Identifier Shelf Expiration Date Model / Serial / Lot Suture [place] 5.5 3 - [id number] Implanted:Qty : 1 on 01/31/2015 by Delvis Sheppard MD at OR [facility] Right: Shoulder [employer] *DO NOT USE* 10/15/2019 [id number] / / [id number] documented as of this encounter Visit Diagnoses Diagnosis Type 2 diabetes mellitus with hemoglobin A1c goal of less than 7.0% ([facility])- Primary History of colonic polyps Personal history of [...] Agents on File Name Relationship Healthcare Agent [facility] p Communication Madalyn [facility] Repr esentative (appointed verbally by patient or by statute hierarchy) Care Teams Oncology Social Worker Relationship Specialty Start Date End Date Delmis Villanueva PA-C [address] [place] [id number] PCP - General Physician Compass Operator 06/18/23 documented as of this encounter
[2025-01-28] MEDS: POLYETHYLENE (MIRALAX) 17 GM PACK PO SCH (05:41)
[2025-01-28] MEDS: ONDANSETRON INJ 2 MG/ML 2 ML VIAL IV PRN (06:42)
[2025-01-28 06:44] LABS: Basophils # (auto) 0.02 K/uL (0.00-0.20); Basophils % (auto) 0.2 %; Hematocrit (blood only) 33.3 % (37.0-47.0); Hemoglobin 11.1 g/dl (12.0-16.0); Immature Granulocytes # (auto) 0.06 K/uL (0.01-0.20); Immature Granulocytes % (auto) 0.5 %; Lymphocytes # (auto) 1.06 K/uL (1.20-3.40); Lymphocytes % (auto) 8.7 %; Mean Corpuscular Hemoglobin 28.2 pg (25.0-34.0); Mean Corpuscular Hgb Conc 33.3 g/dL (32.0-36.0); Mean Corpuscular Volume 84.7 fL (80.0-100.0); Mean Platelet Volume 9.8 fL (9.4-12.4); Monocytes # (auto) 0.69 K/uL (0.11-0.59); Monocytes % (auto) 5.7 %; Neutrophils # (auto) 10.32 K/uL (1.40-6.50); Neutrophils % (auto) 84.9 %; Platelet Count 278 K/uL (130-400); RDW Coefficient of Variation 12.7 % (11.5-14.5); RDW Standard Deviation 39.1 fL (36.4-46.3); Red Blood Count 3.93 M/uL (4.20-5.40); White Blood Count 12.15 K/ul (4.8-10.8)
[2025-01-28 07:12] LABS: BUN Creatinine Ratio 14.8 (10-20); Creatinine Clr Calc Pharmacy 42.7 ml/min
[2025-01-28] MEDS ORDERED: EMPAGLIFLOZIN 25 MG TAB PO SCH (09:00)
--- NOTE | 2025-01-28 10:00 | Orthopedic Progress Note ---
Date of Service January 28, 2025 Assessment & Plan (1) Multilevel lumbosacral spondylosis with radiculopathy: Plan: At this time we will initiate physical therapy monitor GINA operatively discharge home in the next few days. Admission and Anticipated Discharge Date Admission Date: January 27, 2025 Subjective Back pain controlled leg symptoms improved Physical Exam Physical Exam: Patient is currently in bed. She has good strength testing. Appears co mfortable. Results & Data Vital Signs (Past 12 Hours) Vital Signs Temp Pulse Pulse Resp BP Pulse Ox O2 Del Method 01/28/25 07:42 37.0 C 73 16 119/70 97 Nasal Cannula 01/28/25 07:28 Nasal Cannula 01/28/25 02:47 36.5 C 82 16 113/69 98 Nasal Cannula 01/27/25 23:23 36.4 C L 64 16 125/71 97 Nasal Cannula O2 Flow Rate 01/28/25 07:42 2 01/28/25 07:28 2 01/28/25 02:47 1 01/27/25 23:23 1
[2025-01-28] MEDS: FLUTICASONE FUROATE 100MCG 14 PUFFS/INHALER INH PRN (10:07)
[2025-01-28] MEDS: ESCITALOPRAM OXALATE 20 MG TAB PO SCH (10:07)
[2025-01-28] MEDS: CHOLECALCIFEROL 125 MCG (5,000 UNITS) TAB PO SCH (10:07)
[2025-01-28] MEDS: LANTUS PER UNIT CHARGE SC SCH (10:10)
[2025-01-28] MEDS: oxyCODONE HCL IR 5 MG TAB (IMMEDIATE RELEASE) PO PRN (10:22)
--- NOTE | 2025-01-28 11:47 | Hospitalist Progress Note ---
Date of Service January 28, 2025 Assessment & Plan (1) Multilevel lumbosacral spondylosis with radiculopathy: (2) Status post lumbar spine surgery for decompression of spinal cord: (3) Diabetes mellitus, type 2: (4) Hypertension: (5) Hyperlipidemia: (6) Chronic obstructive pulmonary disease: (7) CKD (chronic kidney disease): (8) GERD (gastroesophageal reflux disease): (9) History of esophageal dilatation: (10) Sleep apnea: (11) Depression: (12) Anxiety: Plan S/p Lumbar decompression fusion L3-L4 - POD #1 - Last hemoglobin on 01/06/2025 =12.6 - Pain management, bowel regimen and DVT ppx per the primary team - PT/OT consults - pt requesting wheelchair script prior to discharge - Follow am CBC to monitor for acute blood loss - Jara cath in place, dc likely this evening vs tomorrow morning Hyponatremia Sodium of 129 Was normal in December 2024 Pt notes that she is very thirsty at times and drinks lots of water Urine osm and electrolytes pending UA with microscopy ordered Nephrology consult in the AM HTN HLD Hx of cardiac cath for heart disease, no stenting, medical management - Cont home meds: atorvastatin, asa 81 mg daily starting 01/28 DM II - Glycemic pharmacy consulted, cont accuchecks achs, jardiance daily. Takes Mounjaro 5mg subq on Mondays, if still in hospital Thursday administer. - DM/ clears and advance per ortho spine COPD YANG on CPAP - Cont HS cpap - at home is noncompliant, Reports significant weight loss has made the mask she has at home not fit correctly - Cont home inhalers - Does not wear supplemental o2 at baseline GERD Esophageal stricture s/p dilation - Cont PPI, stable Anxiety Major depressive disorder - Cont wellbutrin, lexapro, clonazepam 1 mg BID. She also has prn meds including ativan and hydroxyzine ordered per primary team. Use hydroxyzine first line. Would avoid ativan prn if possible with clonazepam ordered as standing med from home. Thank you for involving us in the care of Ms. Bolaños. Please do not hesitate to call with questions or concerns. At this time medicine service will follow along. DVT ppx: teds, scds FEN/GI: DM/clears, advance diet as tolerated per primary team CODE: full code Admission and Anticipated Discharge Date Admission Date: January 27, 2025 Subjective Pt was seen working with PT Later got into bed as she stated she was feeling dizzy but it later resolved otherwise denied acute concerns Review of Systems Review of Systems: All systems reviewed & are unremarkable except as noted in Subjective Physical Exam Physical Exam: General: Alert, oriented. No acute distress HEENT: NC/AT CV: RRR Resp: Breath sounds clear bilaterally, no increased effort of breathing Abdomen: Soft, nontender Extremities: No edema in lower extremities bilaterally. Results & Data Results & Data Vital Signs (Past 12 Hours) Vital Signs Temp Pulse Pulse Resp BP Pulse Ox O2 Del Method 01/28/25 07:42 37.0 C 73 16 119/70 97 Nasal Cannula 01/28/25 07:28 Nasal Cannula 01/28/25 02:47 36.5 C 82 16 113/69 98 Nasal Cannula O2 Flow Rate 01/28/25 07:42 2 01/28/25 07:28 2 01/28/25 02:47 1
[2025-01-28] MEDS: FAMOTIDINE 20 MG TAB PO PRN (12:48)
[2025-01-28] MEDS: ACETAMINOPHEN 500 MG TAB PO PRN (12:56)
[2025-01-28 17:09] LABS: Urine Potassium 13.9 mmol/L
[2025-01-28 17:25] LABS: BUN Creatinine Ratio 21.2 (10-20); Calcium 9.1 mg/dl (8.6-10.3); Creatinine Clr Calc Pharmacy 49.6 ml/min; Potassium 4.5 mmol/L (3.5-5.1)
[2025-01-28] MEDS: COUGH DROP (SUGAR FREE) LOZ 24 LOZ/1 BOX BUCCAL PRN (21:50)
[2025-01-28] MEDS: hydrOXYzine HCl 25 MG TAB PO PRN (23:50)
[2025-01-29 07:19] LABS: Hematocrit (blood only) 30.4 % (37.0-47.0); Mean Corpuscular Hemoglobin 27.7 pg (25.0-34.0); Mean Corpuscular Hgb Conc 32.9 g/dL (32.0-36.0); Mean Corpuscular Volume 84.2 fL (80.0-100.0); Platelet Count 241 K/uL (130-400); RDW Coefficient of Variation 12.7 % (11.5-14.5); RDW Standard Deviation 39.1 fL (36.4-46.3); Red Blood Count 3.61 M/uL (4.20-5.40); White Blood Count 6.99 K/ul (4.8-10.8)
[2025-01-29 07:49] LABS: BUN Creatinine Ratio 16.9 (10-20); Calcium 9.2 mg/dl (8.6-10.3); Creatinine Clr Calc Pharmacy 39.6 ml/min; Magnesium 1.8 mg/dl (1.7-2.4); Phosphorus 3.7 mg/dl (2.5-4.9); Potassium 4.1 mmol/L (3.5-5.1)
[2025-01-29] MEDS: LANTUS PER UNIT CHARGE SC SCH (09:07)
--- NOTE | 2025-01-29 09:58 | Orthopedic Progress Note ---
Date of Service January 29, 2025 Assessment & Plan (1) Multilevel lumbosacral spondylosis with radiculopathy: Plan: At this time we will continue physical therapy. Will discontinue her Jara today. She may wear her shoes for therapy. Admission and Anticipated Discharge Date Admission Date: January 27, 2025 Subjective Back pain is controlled tolerating physical therapy. Physical Exam Physical Exam: Patient is good strength testing. Appears comfortable. Results & Data Vital Signs (Past 12 Hours) Vital Signs Temp Pulse Resp BP Pulse Ox O2 Del Method O2 Flow Rate 01/29/25 07:42 36.8 C 69 16 101/61 93 Room Air 01/29/25 07:12 Nasal Cannula 2
--- NOTE | 2025-01-29 14:46 | Hospitalist Progress Note ---
Date of Service January 29, 2025 Assessment & Plan (1) Multilevel lumbosacral spondylosis with radiculopathy: (2) Status post lumbar spine surgery for decompression of spinal cord: (3) Diabetes mellitus, type 2: (4) Hypertension: (5) Hyperlipidemia: (6) Chronic obstructive pulmonary disease: (7) CKD (chronic kidney disease): (8) GERD (gastroesophageal reflux disease): (9) History of esophageal dilatation: (10) Sleep apnea: (11) Depression: (12) Anxiety: Plan S/p Lumbar decompression fusion L3-L4 - POD #1 - Last hemoglobin on 01/06/2025 =12.6 - Pain management, bowel regimen and DVT ppx per the primary team - PT/OT consults - pt requesting wheelchair script prior to discharge - Follow am CBC to monitor for acute blood loss - Jara cath in place, dc likely this evening vs tomorrow morning Hyponatremia Sodium of 129 Was normal in December 2024 Pt notes that she is very thirsty at times and drinks lots of water Urine osm and electrolytes UA with microscopy Bladder scan Nephrology consulted appreciate recs HTN HLD Hx of cardiac cath for heart disease, no stenting, medical management - Cont home meds: atorvastatin, asa 81 mg daily starting 01/28 DM II - Glycemic pharmacy consulted, cont accuchecks achs, jardiance daily. Takes Mounjaro 5mg subq on Mondays, if still in hospital Thursday administer. - DM/ clears and advance per ortho spine COPD YANG on CPAP - Cont HS cpap - at home is noncompliant, Reports significant weight loss has made the mask she has at home not fit correctly - Cont home inhalers - Does not wear supplemental o2 at baseline GERD Esophageal stricture s/p dilation - Cont PPI, stable Anxiety Major depressive disorder - Cont wellbutrin, lexapro, clonazepam 1 mg BID. She also has prn meds including ativan and hydroxyzine ordered per primary team. Use hydroxyzine first line. Would avoid ativan prn if possible with clonazepam ordered as standing med from home. Thank you for involving us in the care of Ms. Bolaños. Please do not hesitate to call with questions or concerns. At this time medicine service will follow along. DVT ppx: teds, scds FEN/GI: DM/clears, advance diet as tolerated per primary team CODE: full code Admission and Anticipated Discharge Date Admission Date: January 27, 2025 Subjective pt was seen laying in bed per nursing, significant urinary output Pt notes she is very thirsty Review of Systems Review of Systems: All systems reviewed & are unremarkable except as noted in Subjective Physical Exam Physical Exam: General: Alert, oriented. No acute distress HEENT: NC/AT CV: RRR Resp: Breath sounds clear bilaterally, no increased effort of breathing Abdomen: Soft, nontender Extremities: No edema in lower extremities bilaterally. Results & Data Results & Data Vital Signs (Past 12 Hours) Vital Signs Temp Pulse Pulse Resp BP Pulse Ox O2 Del Method 01/29/25 14:12 36.9 C 69 16 93/55 L 96 Room Air 01/29/25 07:42 36.8 C 69 16 101/61 93 Room Air 01/29/25 07:12 Nasal Cannula O2 Flow Rate 01/29/25 14:12 01/29/25 07:42 01/29/25 07:12 2
[2025-01-29] MEDS: SODIUM CHLORIDE 0.9% 1,000 ML IV SCH (17:25)
[2025-01-29] MEDS: HYDROmorphone INJ 0.5 MG/0.5 ML SYR IV PRN (20:32)
[2025-01-29 21:24] LABS: Appearance Urine Clear (Clear); Bacteria Urine Automated None Seen (None Seen); Bilirubin Urine Negative (Negative); Blood Urine Trace (Negative); Cast Urine Automated 0-2 /lpf (0-2); Color Urine Yellow; Epithelial Cell Urine Auto 0-2 /hpf (0-2); Glucose Urine UA 1+ (Negative); Ketones Urine Negative (Negative); Leukocyte Esterase Urine Negative (Negative); Nitrite Urine Negative (Negative); Protein Urine Negative (Negative); RBC Urine Automated 0-2 /hpf (0-2); Specific Gravity Urine 1.007 (1.000-1.030); Urobilinogen Urine Negative (Negative); WBC Urine Automated 0-5 /hpf (0-5)
[2025-01-30 07:48] LABS: Hematocrit (blood only) 30.9 % (37.0-47.0); Hemoglobin 10.2 g/dl (12.0-16.0); Mean Corpuscular Hemoglobin 27.3 pg (25.0-34.0); Mean Corpuscular Volume 82.8 fL (80.0-100.0); Mean Platelet Volume 9.6 fL (9.4-12.4); Platelet Count 239 K/uL (130-400); RDW Coefficient of Variation 13.2 % (11.5-14.5); RDW Standard Deviation 39.8 fL (36.4-46.3); Red Blood Count 3.73 M/uL (4.20-5.40); White Blood Count 9.32 K/ul (4.8-10.8)
[2025-01-30 08:05] LABS: BUN Creatinine Ratio 15.2 (10-20); Calcium 9.2 mg/dl (8.6-10.3); Creatinine Clr Calc Pharmacy 39.3 ml/min; Magnesium 1.6 mg/dl (1.7-2.4); Phosphorus 3.5 mg/dl (2.5-4.9); Potassium 4.3 mmol/L (3.5-5.1)
[2025-01-30 08:19] VITALS: BP 120/60; RESP 15; TEMP 99.3; O2SAT 90
--- NOTE | 2025-01-30 08:29 | Nephrology Consultation ---
Date of Consultation January 30, 2025 History of Present Illness Reason for Consultation: Polydipsia, acute kidney injury, significant urine output Requesting Physician: Dr. Seaman Attending Physician: Zion Calle DO History of Present Illness 64-year-old female whom I am asked to evaluate for polydipsia, acute kidney injury, significant urine output was admitted January 27 for L3-L4 decompression and fusion with hardware removal L4-L5 as definitive treatment for multilevel lumbosacral spondylosis with radiculopathy. Medical history includes coronary artery disease for medical management, type 2 diabetes, CKD 3 baseline creatinine , esophageal stricture status post dilatation, sleep apnea on CPAP, COPD, hypertension, hyperlipidemia, recent history of tobacco abuse with cessation November 2024. Allergies Allergy/AdvReac Type Severity Reaction Status Date / Time cortisone Allergy Severe Muscle Verified 01/27/25 10:03 inflammation near injection site tuna oil Allergy Intermediate Verified 01/27/25 10:56 shrimp Allergy Verified 01/27/25 10:29 semaglutide [From Ozempic] AdvReac Severe Severe Verified 01/27/25 10:03 vomiting and weight loss meloxicam AdvReac Intermediate Caused Verified 01/27/25 10:03 kidney dysfunction NSAIDS (Non-Steroidal AdvReac Intermediate Caused Verified 01/27/25 10:03 Anti-Inflamma kidney dysfunction Home Medications Medication Instructions Recorded Confirmed Type atorvastatin 80 mg tablet 80 mg PO HS 03/16/20 01/27/25 History bupropion HCl 200 mg tablet,12 hr 200 mg PO BID 03/16/20 01/27/25 History sustained-release (Wellbutrin SR) clonazepam 1 mg tablet (Klonopin) 1 mg PO BID 03/16/20 01/27/25 History omeprazole 40 mg capsule,delayed 40 mg PO PM 03/16/20 01/27/25 History release ondansetron 4 mg disintegrating 4 mg PO Q6H PRN Nausea 04/15/21 01/27/25 History tablet albuterol sulfate 90 mcg/actuation 1 inh inhalation QID PRN sob 12/26/24 01/27/25 History aerosol inhaler aspirin 81 mg tablet,delayed 81 mg PO HS 12/26/24 01/27/25 History release cholecalciferol (vitamin D3) 125 125 mcg PO UD lumbar surgery 12/26/24 01/27/25 History mcg (5,000 unit) tablet (Vitamin D3) empagliflozin 25 mg tablet 25 mg PO QAM 12/26/24 01/27/25 History (Jardiance) escitalopram oxalate 20 mg tablet 20 mg PO QAM 12/26/24 01/27/25 History fluticasone furoate 100 1 inh inhalation DAILY PRN flare up 12/26/24 01/27/25 History mcg/actuation blister powder for inhalation (Arnuity Ellipta) polyethylene glycol 3350 17 17 g PO DAILY 12/26/24 01/27/25 History gram/dose oral powder (Miralax) tirzepatide 5 mg/0.5 mL 5 mg subcut WK 12/26/24 01/27/25 History subcutaneous pen injector (Mounjaro) oxycodone 5 mg tablet 5 mg PO Q6H PRN pain #30 tabs 01/28/25 Rx tramadol 50 mg tablet 50 mg PO Q6H PRN pain, moderate 01/28/25 Rx #30 tabs Patient History Medical History Anxiety Chronic obstructive pulmonary disease CKD (chronic kidney disease) Improved with NSAID discontinuation Depression Diabetes mellitus, type 2 GERD (gastroesophageal reflux disease) Controlled Hearing deficit + hearing aids (currently are not working) Hiatal hernia History of anemia History of esophageal dilatation History of hypertension No current meds Hyperlipidemia Osteoarthritis Sleep apnea CPAP (injectable) Sural neuropathy Toe/hands neuropathy Monitoring with [facility] Surgical History History of arthroscopy right History of cardiac cath 2013 > angiographically normal coronary arteries History of carpal tunnel release right History of cholecystectomy History of colonoscopy History of dilatation and curettage History of esophagogastroduodenoscopy (EGD) History of foot surgery Left Foot Open Plantar Fascia Release, Tenosynovectomy Peroneal Tendons, Calcaneal Exostectomy (05/17/21): LMA#4 at [facility] History of hysterectomy History of repair of rotator cuff R/L History of tooth extraction all teeth Hx of Achilles tendon repair left x2 Hx of decompression of ulnar nerve right S/P lumbar fusion L4-L5 decompression/fusion (04/13/20): MAC#3, ETT 7.0 at [facility] Family History Sister Diabetes Brother Diabetes Other No family history of adverse response to anesthesia Social History (Updated 02/12/24 @ 13:32 by Zion Alvares, DO) Smoking Status: Former smoker Tobacco Type: Cigarettes Smoking End Date: Quit 12/02/24 (Hx 1/2 PPD); Second Hand Exposure: Yes; Do You Dip or Chew Tobacco: No; Tobacco Cessation Education Requested by Patient: No Hx Alcohol Use: No Hx Substance Use: No Preferred Language: Yemeni Communication Ability: Effective Visual Impairment: No Limitations Underliner Required: No Beliefs That Will Affect Care: None Current Living Situation: Family Current Living Situation Comment: lives with daughter Other Information That Helps Us Care for You: No Feels Safe at Home: Yes Safety Concerns: Feels Safe At This Time Assistive Devices: Cane Assistive Devices Comment: bilateral hearing aides are not currently working - no teeth Results & Data Vital Signs (Past 12 Hours) Vital Signs Temp Pulse Pulse Resp BP Pulse Ox O2 Del Method 01/30/25 08:00 37.4 C 90 82 15 120/60 90 Room Air 01/29/25 20:30 Room Air, Nasal Cannula Laboratory Results 01/30/25 07:21 01/30/25 07:21
--- NOTE | 2025-01-30 09:35 | Discharge Summary ---
Date of Service January 30, 2025 Admission HPI Per Admitting Provider This is a 64-year-old female who presents with chronic persistent back and leg pain after failing course of nonoperative care is here for surgical intervention. Principal Diagnosis Lumbar spondylosis with radiculopathy Discharge Data Allergies Allergy/AdvReac Type Severity Reaction Status Date / Time cortisone Allergy Severe Muscle Verified 01/27/25 10:03 inflammation near injection site tuna oil Allergy Intermediate Verified 01/27/25 10:56 shrimp Allergy Verified 01/27/25 10:29 semaglutide [From Ozempic] AdvReac Severe Severe Verified 01/27/25 10:03 vomiting and weight loss meloxicam AdvReac Intermediate Caused Verified 01/27/25 10:03 kidney dysfunction NSAIDS (Non-Steroidal AdvReac Intermediate Caused Verified 01/27/25 10:03 Anti-Inflamma kidney dysfunction Consultations 01/27/25 14:13 Consult Hospitalist Routine 01/29/25 17:20 Consult Nephrology Routine Procedures Performed Operation Date: 01/27/25 10:55 Actual Procedures p L3-L4 Decompression and Fusion, L4-L5 Hardware Removal(Not Applicable) - Zion Calle DO Ordered Studies 01/27/25 06:00 FL lumbar spine 2-3V Routine Hospital Course (1) Multilevel lumbosacral spondylosis with radiculopathy: Patient underwent lumbar decompression fusion tolerated this well was taken orthopedic for postoperative. Postop patient progressed appropriately with marked improvement of her leg symptoms. GINA drain decreasing. Pain well- controlled. Excellent strength of testing. Subsidy discharged home. Discharge orders instructions from the chart for further review. Total Time Total Time Spent Total Time Spent (In Minutes): 20 minutes Discharge Plan Discharge Items Patient Disposition: Home - Self-Care Reason For Visit: Lumbar Spondylosis, Lumbar Disc Disease, Lumbar Ra Discharge Diagnosis: Lumbar spondylosis with radiculopathy Activity: As commented below Non-emergency contact: Primary Care Provider Call non-emergency contact if: you have any medication questions Follow-up/Referrals: Delmis Villanueva PA-C [Primary Care Provider] - (Date & Time 02/07/2025 10:00 AM Provider: Delmis Villanueva PA-C [facility] ) Diet: Regular Addtl Attending Provider Instructions: ACTIVITY RECOMMENDATIONS: SELF CARE INSTRUCTIONS AFTER THORACIC/LUMBAR FUSIONS 1. You may walk to your tolerance. It is good exercise for your legs and back. Expect some back and intermittent leg aches and pains. 2. You may perform "counter-top" level activities (make a sandwich, shannan with a project, etc.). 3. No bending or lifting of more than 10 pounds or back twisting of any nature (roll like a log when turning in bed). 4. You may ride in a car for 20-30 minutes at a time. No driving until after your first visit with your doctor. 5. Frequent changes of position and restricting sitting to 30 minutes at a time will help limit the amount of back spasms and stiffness you may experience. 6. You may discontinue the use of ambulatory aids (cane, crutches, etc.) once your strength and confidence allow. 7. You may porcelain enamel installer the shower and let water strike your incision when you arrive home at least once daily. Do not take a tub bath, sit in a hot tub or go into a swimming pool until after your first recheck in the office. 8. You may resume previous diet. SPECIAL CARE INSTRUCTIONS: VERY IMPORTANT TO READ AND REVIEW A. Your surgical incision has been closed with a cosmetic suture under the skin that will dissolve in about 6 weeks. In 14 days, you can use a pair of clean scissors and cut the suture that is left outside of the skin at the ends of your incision. 1. The small skin tapes can be removed 7 days after surgery if they have not fallen off by that point. 2. You may keep the wound open to air as much as possible to promote healing after post-op day number 5 unless told otherwise by your doctor. 3. If you think the wound looks like it is becoming infected (redness or worsening drainage) and/or you are experiencing fever, chill or worsening back pain and muscle spasms, contact the office so that we may evaluate you as soon as possible. B. Complications are uncommon, but please contact us if you have any signs or symptoms of: 1. wound infection (fever higher than 102.5 degrees F, redness, separation of wound, drainage, or increasing pain from the incision) 2. blood clots in legs (pain, swelling, redness and warmth in legs) 3. urinary tract infection (fever higher than 102.5 degrees F, burning upon urination or increased frequency of urination) 4. nerve problems (inability to walk on your toes or heels, numbness, loss of bowel or bladder control) 5. any other symptoms that concern you C. Please call the office at if you have any concerns or questions about your operation or recovery. D. No smoking! Smoking drastically decreases the chance of a solid fusion. E. Do not take any anti-inflammatory medications (Indocin, Advil, Motrin, Aspirin, Naprosyn, etc.) as these may inhibit the chance of a solid fusion. Tylenol is okay to take for pain. MANAGING PAIN AFTER SPINAL SURGERY 1. Narcotic medication is intended for short-term use and will be provided for surgical pain. Surgical pain usually lasts for a period of 4-6 weeks. Narcotic medication includes Percocet, Vicodin, Darvocet, Tylenol #3 or Lortab. 2. Longer-term pain is more appropriately treated with non-narcotic medication such as Tylenol ES. 3. Muscle spasm is not appropriately treated with narcotics. Muscle relaxers such as Soma, Flexeril or Skelaxin can be used along with Tylenol ES. 4. Remember that we all live with some "aches and pains". This is not unusual or uncommon after an injury or as we get older. a. Back pain is expected and may include muscle spasms for 4 to 6 weeks after surgery. The pain should gradually improve. If the pain worsens for no apparent reason, please contact the office. b. Intermittent leg pain may also be experienced and should not be concerned about unless it worsens for no apparent reason. If so, please contact the office. 5. We will provide appropriate medication within the normal guidelines of their prescribed use. We will also be very cautious and aware of potential abuse and extended duration of patients' medication needs. a. Pain medications are for your comfort and to assist with sleep and rest so that the tissue can heal. They are not provided in order to return to normal activity and should not be used through the day. To do so or worsening pain at night can result from ongoing tissue damage and development of tolerance to the prescribed medicine. 6. Please allow 2-3 days to process refills. Prescriptions will not be mailed but must be picked up at the office. FOLLOW UP VISIT: Keep your scheduled follow-up appointment. Any questions, please call the office at . Pending Studies at Discharge: No Stand-Alone Forms: [facility], Smoking Cessation Medications and DC Order Prescriptions: New tramadol 50 mg tablet 50 mg PO Q6H PRN (Reason: pain, moderate) Qty: 30 0RF oxycodone 5 mg tablet 5 mg PO Q6H PRN (Reason: pain) Qty: 30 0RF Continued atorvastatin 80 mg Tablet 80 mg PO HS clonazepam [Klonopin] 1 mg Tablet 1 mg PO BID omeprazole 40 mg Capsule,Delayed Release(Dr/Ec) 40 mg PO PM bupropion HCl [Wellbutrin SR] 200 mg Tablet Sustained-Release 12 Hr 200 mg PO BID ondansetron 4 mg Tablet,Disintegrating 4 mg PO Q6H PRN (Reason: Nausea) escitalopram oxalate 20 mg Tablet 20 mg PO QAM Jardiance 25 mg Tablet 25 mg PO QAM aspirin 81 mg tablet,delayed release (DR/EC) 81 mg PO HS polyethylene glycol 3350 [Miralax] 17 gram/dose Powder 17 g PO DAILY cholecalciferol (vitamin D3) [Vitamin D3] 125 mcg (5,000 unit) Tablet 125 mcg PO UD Mounjaro 5 mg/0.5 mL Pen Injector 5 mg SUBCUT WK albuterol sulfate 90 mcg/actuation Hfa Aerosol Inhaler 1 inh INHALATION QID PRN (Reason: sob) Arnuity Ellipta 100 mcg/actuation Blister With Device 1 inh INHALATION DAILY PRN (Reason: flare up) Discharge Orders: Discharge Order (Routine); Ordered 01/30/25 Ordered By: Zion Calle Admission Data Admit Date/Time: 01/27/25 12:34 Attending Provider: Zion Calle Admit Provider: Zion Calle Primary Care Provider: Delmis Villanueva Other Providers: Lynette Corona; Bel Baldwin
[2025-01-30 09:52] VITALS: PULSE 69
[2025-01-30] MEDS: MAGNESIUM OXIDE 400 MG TAB PO SCH (10:37)
--- NOTE | 2025-01-30 13:29 | Communication Note ---
Date of Service: January 30, 2025 Pt was discharged before nephro could evaluate her in person. Follow up with PCP.
== END 2025-01-30 12:56 | disposition home or self-care (01) | DRG 402 ==
LOC: ASU 09:37 → 3N 12:34